=== PATIENT | female | born 1950 | race Caucasian/White ===

== ENCOUNTER 2024-02-13 05:57 | Inpatient (IN) ==
--- NOTE | 2024-01-30 14:31 | PAT Medication Instructions ---
Medication Instructions Date of Service January 30, 2024 Home Medications Medication Instructions Recorded albuterol sulfate 90 mcg/actuation 2 puffs inhalation Q4H PRN 01/02/19 aerosol inhaler shortness of breath or wheezing #18 grams triamcinolone acetonide 0.1 % 1 appln topical BID #80 grams 01/02/19 topical cream blood sugar diagnostic ([employer]Touch #100 ea 04/24/19 Ultra Blue Test Strip) blood-glucose meter ([employer] #1 ea 04/24/19 Ultra2 Meter kit) lancets 33 gauge ([employer] Delica #100 ea 04/24/19 Lancets) trazodone 50 mg tablet 50 - 100 mg (1 - 2 x 50 mg) PO HS 05/29/19 PRN sleep #60 tabs Medication List: albuterol sulfate 90 mcg/actuation aerosol inhaler 2 puffs inhalation Q4H PRN shortness of breath or wheezing triamcinolone acetonide 0.1 % topical cream 1 appln topical BID lidocaine 5 % topical ointment See Rx Instructions topical TID PRN Pain losartan 100 mg-hydrochlorothiazide 25 mg tablet 1 tab PO QPM metoprolol succinate 50 mg tablet,extended release 24 hr 75 mg PO QAM trazodone 50 mg tablet 50 - 100 mg (1 - 2 x 50 mg) PO HS PRN sleep atorvastatin 40 mg tablet 40 mg PO HS folic acid 5 mg capsule 5 mg PO QAM gabapentin 600 mg tablet 600 mg PO QID PRN Pain levothyroxine 25 mcg tablet (Levoxyl) 25 mcg PO QAM mometasone 50 mcg/actuation nasal spray 2 sprays intranasal DAILY PRN allergies omeprazole 40 mg capsule,delayed release 40 mg PO QAM tizanidine 4 mg tablet 4 mg PO TID PRN muscle spasms venlafaxine 150 mg capsule,extended release 24 hr 150 mg PO QAM MEDICATION INSTRUCTIONS: Continue as directed albuterol sulfate 90 mcg/actuation aerosol inhaler 2 puffs inhalation Q4H PRN shortness of breath or wheezing (use if needed; BRING TO HOSPITAL) triamcinolone acetonide 0.1 % topical cream 1 appln topical BID (do not apply near surgical area after bathing prior to surgery) lidocaine 5 % topical ointment See Rx Instructions topical TID PRN Pain (do not apply near surgical area after bathing prior to surgery) mometasone 50 mcg/actuation nasal spray 2 sprays intranasal DAILY PRN allergies DO NOT take the morning of surgery folic acid 5 mg capsule 5 mg PO QAM Take morning of surgery With a small sip of water, OTHERWISE NOTHING TO EAT OR DRINK AFTER MIDNIGHT: venlafaxine 150 mg capsule,extended release 24 hr 150 mg PO QAM levothyroxine 25 mcg tablet (Levoxyl) 25 mcg PO QAM metoprolol succinate 50 mg tablet,extended release 24 hr 75 mg PO QAM omeprazole 40 mg capsule,delayed release 40 mg PO QAM gabapentin 600 mg tablet 600 mg PO QID PRN Pain tizanidine 4 mg tablet 4 mg PO TID PRN muscle spasms Take evening before surgery trazodone 50 mg tablet 50 - 100 mg (1 - 2 x 50 mg) PO HS PRN sleep atorvastatin 40 mg tablet 40 mg PO HS losartan 100 mg-hydrochlorothiazide 25 mg tablet 1 tab PO QPM gabapentin 600 mg tablet 600 mg PO QID PRN Pain tizanidine 4 mg tablet 4 mg PO TID PRN muscle spasms Other Notes If you have any questions please call us at [phone] or [phone] or [phone] or [phone]
--- NOTE | 2024-02-06 10:45 | Anesthesiology Consultation ---
Date of Service February 06, 2024 Assessment & Plan (1) Encounter for pre-operative examination: Plan - check BSG am DOS. - awaiting surgeon ordered medical clearance. PAT testing to be faxed to [facility] [place] PCP Christa Elias. Chart Review Chart Review: Pending: Refer to Additional Notes / Consult section and Patient seen in Pre Admission Testing Teaching & Discussion Pre-Anesthesia Teaching/Discussion Notes: Instructed NPO after midnight before surgery, except medications with 15 cc of water. Medication instructions provided according to the PAT guidelines. History Surgery Operation Date: 02/13/24 09:35 Proposed Procedures p L4 Hardware Removal, L2-L3 Decompression, L3-L4 Revision Decompression, L2-L4 Fusion, Spinal Cord Monitoring - Demarcus Sapp, Height/Weight Height: 5 ft 5 in Weight: 88.451 kg Allergies Allergy/AdvReac Type Severity Reaction Status Date / Time alprazolam AdvReac Mild Hallucinati Verified 01/30/24 14:04 ons baclofen AdvReac Mild Nausea Verified 01/30/24 14:04 ibuprofen AdvReac Mild Nausea Verified 01/30/24 14:04 lorazepam [From Ativan] AdvReac Mild Nausea Verified 01/30/24 14:04 Medications Home Medications Medication Instructions Recorded Confirmed Last Taken albuterol sulfate 90 mcg/actuation 2 puffs inhalation Q4H PRN 01/02/19 01/30/24 Unknown aerosol inhaler shortness of breath or wheezing #18 grams triamcinolone acetonide 0.1 % 1 appln topical BID #80 grams 01/02/19 01/30/24 U nknown topical cream lidocaine 5 % topical ointment See Rx Instructions topical TID 04/23/19 01/30/24 Unknown PRN Pain blood sugar diagnostic ([employer]Touch #100 ea 04/24/19 04/24/19 Unknown Ultra Blue Test Strip) blood-glucose meter ([employer] #1 ea 04/24/19 04/24/19 Unknown Ultra2 Meter kit) lancets 33 gauge (OneTouch Delica #100 ea 04/24/19 04/24/19 Unknown Lancets) losartan 100 1 tab PO QPM 05/28/19 01/30/24 Unknown mg-hydrochlorothiazide 25 mg tablet metoprolol succinate 50 mg 75 mg PO QAM 05/28/19 01/30/24 Unknown tablet,extended release 24 hr trazodone 50 mg tablet 50 - 100 mg (1 - 2 x 50 mg) PO HS 05/29/19 01/30/24 Unknown PRN sleep #60 tabs atorvastatin 40 mg tablet 40 mg PO HS 01/30/24 01/30/24 Unknown folic acid 5 mg capsule 5 mg PO QAM 01/30/24 01/30/24 Unknown gabapentin 600 mg tablet 600 mg PO QID PRN Pain 01/30/24 01/30/24 Unknown levothyroxine 25 mcg tablet 25 mcg PO QAM 01/30/24 01/30/24 Unknown (Levoxyl) mometasone 50 mcg/actuation nasal 2 sprays intranasal DAILY PRN 01/30/24 01/30/24 Unknown spray allergies omeprazole 40 mg capsule,delayed 40 mg PO QAM 01/30/24 01/30/24 Unknown release tizanidine 4 mg tablet 4 mg PO TID PRN muscle spasms 01/30/24 01/30/24 Unknown venlafaxine 150 mg 150 mg PO QAM 01/30/24 01/30/24 Unknown capsule,extended release 24 hr Past Medical History Medical History (Updated 02/06/24 @ 14:31 by Nimisha Boston PA-C) Asthma Barretts esophagus Benign essential hypertension COPD (chronic obstructive pulmonary disease) Patient states she was told by pulmonary that she had asthma (not COPD) Per remote [facility] [place] pulmonary records in 2018, possible patient may only have asthma based on spirometry findings, COPD diagnosis still listed in [facility] [place] records since Diabetes mellitus Diet controlled 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 per [facility] [place] Heme/onc GERD (gastroesophageal reflux disease) Hiatal hernia Hx of colonic polyps Hx of irritable bowel syndrome Hyperlipidemia Hypothyroidism Lumbar disc disease Pulmonary embolism (~07/2023) Sleep apnea No device Patient denies h/o stroke, seizures, heart attack, heart failure, blood clots/DVTs or blood transfusions. 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 Hx of hernia repair abdominal Hx of hysterectomy Hx of lumbosacral spine surgery x3 L4-L5 Hx of tonsillectomy (1962) x2 Past Anesthesia History No Hx of Anesthesia Complications and No Family Hx of Anesthesia Complications History of PONV History of PONV (denies needing scop patch) and Hx of Motion Sickness Social History Smoking Status: Former smoker tobacco type: cigarettes Smoking cigarettes per day: 30 Do You Dip or Chew Tobacco: No Smoking End Date: quit 1994 (1.5 ppd) Hx Alcohol Use: Yes alcohol intake frequency: a few times a month Hx Substance Use: No substance use type: does not use Review of Systems Patient denies chest pain, shortness of breath, dyspnea on exertion, fever, chills, cough, wheezing, or palpitations. Physical Exam Vital Signs Vitals BP 172/89 P 63 SP02 97% on RA RESP 18 Physical Patient resting comfortably in chair in no acute distress, alert and oriented, r esponding appropriately throughout visit Full cervical extension range of motion without pain TMD 3.5 finger breadths Mallampati Score 2 Dentition: intact, denies chipped or loose teeth, caps/crowns, implants or bridges Lungs: normal respiratory effort. Good air movement, clear throughout to auscultation, no adventitious breath sounds Cardiac: regular rate and rhythm, no murmurs noted Carotid arteries: negative bruit bilat Lab Results Anesthesia Preop Results Results Anesthesia Widget: WBC 3.70 K/ul (4.8-10.8) L 02/06/24 Hgb 11.4 g/dl (12.0-16.0) L 02/06/24 Hct 35.8 % (37.0-47.0) L 02/06/24 Plt 163 K/uL (130-400) 02/06/24 Na 140 mmol/L (136-145) 02/06/24 K 4.6 mmol/L (3.5-5.1) 02/06/24 Cl 105 mmol/L (98-107) 02/06/24 CO2 31 mmol/L (21-32) 02/06/24 BUN 11 mg/dl (6-23) 02/06/24 Creat 0.91 mg/dl (0.6-1.2) 02/06/24 Glucose Level 99 mg/dl (70-99(Fasting)) 02/06/24 PT 10.3 Seconds (9.0-12.0) 02/06/24 PTT 23 Seconds (21-31) 02/06/24 INR 0.9 (0.9-1.1) 02/06/24 HA1c 6.1 % (4.5-5.6) H 02/06/24 Urine Color Yellow 02/06/24 Urine Appearance Clear (Clear) 02/06/24 Urine pH 7.0 (4.5-7.5) 02/06/24 Urine Specific [place] 1.007 (1.000-1.030) 02/06/24 Urine Protein Negative (Negative) 02/06/24 Urine Glucose (UA) Negative (Negative) 02/06/24 Urine Ketones Negative (Negative) 02/06/24 Urine Blood Negative (Negative) 02/06/24 Urine Nitrite Negative (Negative) 02/06/24 Urine Bilirubin Negative (Negative) 02/06/24 Urine Urobilinogen Negative (Negative) 02/06/24 Urine Leukocyte Esterase Trace (Negative) H 02/06/24 Urine WBC (Auto) 0-5 /hpf (0-5) 02/06/24 Urine RBC (Auto) 0-2 /hpf (0-2) 02/06/24 Urine Hyaline Casts (Auto) 0-2 /lpf (0-2) 02/06/24 Urine Epithelial Cells (Auto) 0-2 /hpf (0-2) 02/06/24 Urine Bacteria (Auto) None Seen (None Seen) 02/06/24 Blood Type A Positive 02/06/24 Antibody Screen NEGATIVE 02/06/24 Testing Electrocardiogram Date: 08/09/23 NSR, rate 74 bpm High QRS voltage may be normal variant or due to lve Nonspecific T wave abnormality Echocardiogram Date: 09/29/23 EF 69% Mild cLVH Non-dilated cardiac chambers Mild aortic valve sclerosis without aortic stenosis Mild mitral annular calcification, mild mitral regurgitation Mild pulmonary regurgitation Cervical Spine Date: 09/14/23 x-ray No acute findings. No dynamic instability. Mild spondylotic disease. CT 09/03/23 No acute findings. Other Testing CT PE 11/21/23 No PE. Previously reported small left lower lobe pulmonary embolism has resolved. There are chronic findings as above. CT chest, abdomen and pelvis 09/03/23 No acute findings. Hiatal hernia noted.
--- OUTSIDE RECORDS SUMMARY | 2024-02-13 06:03 | External Medical Summary | Summary of Care ---
Author Name Unknown Organization [facility] Address [address] [facility] [place] [address] Phone [phone] Care Team Providers [facility] Control [facility] Name Role Phone Unavailable Primary Care Provider Unavailabl e Encounter Details Date Type Department Care Team (Late st Contact Info) Description 02/06/2024 Population Health External Data Unspecified Department Allergies Active Allergy Reactions Criticality Noted Date Comments Alprazolam 10/22/2001 Irritable/mean Lorazepam Other (Please comment) 06/10/2013 Confused and "out of it for days" Baclofen Psych complications 11/16/2012 Ibuprofen 10/22/2001 GI intolerence Metformin 10/18/2021 Stomach documented as of this encounter (statuses as of 02/09/2024) Medications Medication Sig Dispensed Refills Start Date End Date Status Proventil HFA 108 (90 Base) MCG/ACT Inhalation Aerosol SolutionIndications: Acute non-recurrent frontal sinusitis Inhale by mouth 2 Puffs every 4 hours as needed for Wheezing. 6.7 g 05/20/2022 Active Losartan Potassium 100 MG Oral Tablet (Cozaar)Indications: HTN, goal below 150/90 TAKE ONE TABLET BY MOUTH EVERY DAY 90 Tablet 2 07/03/2023 Active Metoprolol Succinate ER 50 MG Oral Tablet Extended Release 24 Hour (toPROL XL)Indications:HTN, goal below 150/90 TAKE ONE TABLET BY MOUTH EVERY DAY 90 Tablet 2 07/03/2023 Active Atorvastatin Calcium 40 MG Oral Tablet (Lipitor) TAKE 1 TABLET BY MOUTH DAILY 90 Tablet 2 07/03/2023 Active traZODone HCl 50 MG Oral Tablet (Desyrel)Indications :Generalized anxiety disorder TAKE 1 TO 2 TABLETS BY MOUTH AT BEDTIME NEEDED FOR SLEEP 180 Tablet 1 07/03/2023 Active Meclizine HCl 25 MG Oral Tablet (Antivert)Indication s:Dizziness on standing Take 1 Tablet by mouth 3 times a day as needed for Dizziness. 30 Tablet 07/21/2023 Active Albuterol Sulfate HFA 108 (90 Base) MCG/ACT Inhalation Aerosol Solution Inhale 2 Puffs by mouth in the morning and 2 Puffs at noon and 2 Puffs in the evening and 2 Puffs before bedtime. 18 g 5 07/24/2023 Active Fluticasone-Salmeter ol 250-50 MCG/ACT Inhalation Aerosol Powder Breath Activated (Advair Diskus) Inhale 1 Puff by mouth in the morning and 1 Puff before bedtime. 60 Each 3 07/24/2023 Active Levothyroxine Sodium 25 MCG Oral Tablet (Levoxyl)Indications :Acquired hypothyroidism Take 1 Tablet by mouth in the morning. (at least 30 min prior to breakfast or other meds). 30 Tablet 11 08/14/2023 Active Gabapentin 400 MG Oral Capsule (Neurontin) TAKE ONE CAPSULE BY MOUTH THREE TIMES A DAY 90 Capsule 5 08/18/2023 Active Apixaban 5 MG Oral Tablet (Eliquis)Indications :Acute pulmonary embolism, unspecified pulmonary embolism type, unspecified whether acute cor pulmonale present (HCC) Take 1 Tablet by mouth in the morning and 1 Tablet before bedtime. Do not start before September 14, 2023. 180 Tablet 1 09/14/2023 Active Additional Information Patient not taking.Reported on 01/19/2024 Folic Acid 1 MG Oral TabletIndications:Ho mocystinemia Take 1 Tablet by mouth in the morning. 90 Tablet 3 09/25/2023 Active tiZANidine HCl 4 MG Oral Tablet (Zanaflex)Indication s:Chronic bilateral low back pain, unspecified whether sciatica present Take 1 Tablet by mouth every 6 hours as needed for Muscle spasms. 30 Tablet 12/15/2023 Active Omeprazole 40 MG Oral Capsule Delayed Release (PriLOSEC)Indication s:GERD without esophagitis TAKE ONE CAPSULE BY MOUTH TWICE A DAY 180 Capsule 3 01/17/2024 5 Active Venlafaxine HCl ER 150 MG Oral Capsule Extended Release 24 Hour (Effexor XR)Indications:Gener alized anxiety disorder TAKE 1 CAPSULE BY MOUTH EVERY MORNING . 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 Moderate episode of recurrent major depressive d isorder 12/22/2022 Dizziness on standing 05/28/2022 Ambulatory dysfunction 05/28/2022 Hypokalemia 05/28/2022 Type II diabetes mellitus with neurological ryan festations 10/18/2021 Claustrophobia 06/24/2021 Recurrent major depressive disorder 04/19/2021 Type 2 diabetes mellitus with polyneuropathy 06/2020 Chronic major depressive disorder 09/26/2019 Type 2 diabetes mellitus wit h hemoglobin A1c goal of less than 7.0% 09/18/2019 GERD without esophagitis 07/26/2019 Generalized anxiety disorder 07/26/2019 Other irritable bowel syndrome 03/29/2018 Other insomnia 12/20/2017 BHAVIN (obstructive sleep apnea) 11/16/2012 Vitamin D deficiency 08/20/2011 Obesity, Class II, BMI 35-39.9, no comorbidity 0 10/12/2009 Overview: Per Obesity Taxonomy Dyslipidemia, goal LDL below 100 06/25/2009 Overview: Per Lipid Taxonomy. Niacin Simvastatn Did not tolerated fish oil 04/26 change to pravastatin. History of tobacco use 10/31/2007 Overview: Ua 07/28 HTN, goal below 150/90 Overview: Atenolol chlothalidone, lasix. Basic 03/25, UA 10/24 Atenolol stopped du to cough, fatigue. Lotrel, chlorthalidone, K. 06/26 self d/c chlorthalidone due to cost.Tolerating being off documented as of this encounter (statuses as of 02/09/2024) Resolved Problems Problem Noted Date Diagnosed Date Resolved Date Upper respiratory tract infection 03/27/2023 08/09/2023 Mixed hyperlipidemia 10/18/2021 023 COPD exacerbation 06/29/2020 08/09/2023 Overview: Per COPD GOLD Classification Hypertensive kidney disease with stage 3a chronic kidney disease 05/25/2020 04/19/2021 Overview: Per CKD protocol Hypertensive kidney disease with stage 3 chronic kidney disease 11/18/2019 05/28/2020 Overview: Per CKD protocol Kay's esophagus without dysplasia 09/26/2019 10/18/2021 Emphysema, unspecified 09/26/201901/08 Type 2 diabetes mellitus wit h chronic kidney disease 09/26/2019 02/19/2020 Overview: duplicate Kidney disease, chronic, sta ge III (GFR 30-59 ml/min) 08/27/2019 11/28/2019 Overview: Per CKD protocol Chest pain 08/24/2018 07/25/2019 Overview: Acute Hypertensive urgency 08/24/2018 020 Overview: Acute Headache 08/24/2018 07/25/2019 Overview: Acute Costochondritis 08/24/2018 03/10/2020 Encounter for examination fo r normal comparison and control in clinical research program 07/24/2018 08/23/2019 Overview: DO NOT DELETE [facility] DETECT Study: Project # [id number], Videographer: Saad Bray, PhD. SUMMARY: Goal: Establish test characteristics (sensitivity, specificity, PPV, NPV) of a circulating tumor DNA (ctDNA)-based test for cancer. Hypothesis: Circulating tumor DNA (ctDNA) and elevated protein biomarkers (together, the marker panel) can be detected in asymptomatic individuals with early cancer. Specific Aim 1: Determine the prevalence of a positive marker panel test in a prospective clinical cohort of 10,000 asymptomatic women ages 65 to 75 years. Specific Aim 2: Determine the sensitivity, specificity, positive predictive value (PPV) and negative predictive value (NPV) of a marker panel test to identify histologically proven cancers that develop within 5-years of the marker panel evaluation. CONTACTS: During normal business hours, contact study staff at ; after hours Videographer via the [employer] coin rolling machine operator . Please contact study team before resolving/deleting from patients problem list. Study phone number: [phone]. Diagnosis changed due to Research Module. Go to Snapshot for study details. Encounter for examination fo r normal comparison and control in clinical research program 07/24/2018 03/17/2022 Overview: DO NOT DELETE - [facility] Study: Project # [id number], Videographer: Mandeep Mcpherson, MS, MPH. SUMMARY: Goal: Establish test characteristics (sensitivity, specificity, PPV, NPV) of a circulating tumor DNA (ctDNA)-based test for cancer. - Hypothesis: Circulating tumor DNA (ctDNA) and elevated protein biomarkers (together, the marker panel) can be detected in asymptomatic individuals with early cancer. - Specific Aim 1: Determine the prevalence of a positive marker panel test in a prospective clinical cohort of 10,000 asymptomatic women ages 65 to 75 years. - Specific Aim 2: Determine the sensitivity, specificity, positive predictive value (PPV) and negative predictive value (NPV) of a marker panel test to identify histologically proven cancers that develop within 5-years of the marker panel evaluation. - CONTACTS: During normal business hours, contact study staff at ; after hours Videographer via the [employer] coin rolling machine operator . - Please contact study team before resolving/deleting from patients problem list. Study phone number: [phone]. Diagnosis changed due to Research Module. Go to Snapshot for study details. Left upper quadrant pain 03/29/201804/2018 IFG (impaired fasting glucose) 02/09/2018 09/18/2019 Gastroesophageal reflux disease 12/20/2017 07/31/2019 Encounter for long-term (cur rent) use of medications 12/20/2017 03/10/2020 Shoulder impingement 06/27/2016 017 Benign skin lesion of nose 05/30/2016 0 01/11/2017 Deviated nasal septum 05/30/20162016 Chronic rhinitis 05/30/2016 09/26/2016 Incompetent nasal valve 05/30/201612/16 Acute respiratory failure wi th hypoxia and hypercapnia 05/09/2016 05/16/2016 PNA (pneumonia) 05/09/2016 06/27/2016 Narcotic overdose 05/09/2016 05/16/2016 Left lower lobe pneumonia 05/09/2016 Left upper lobe pneumonia 05/09/2016 COPD (chronic obstructive pulmonary disease) 6 05/16/2016 Bursitis 03/18/2015 01/11/2017 Intractable back pain 03/11/20152019 Overview: Acute COPD, severe 02/11/2015 07/02/2020 Overview: Per COPD GOLD Classification Do not give narcotics 08/13/20142017 Overview: Narcotics only to be given by Myself as PCP Asthma with COPD 07/04/2014 09/26/2019 Advance directive discussed with patient 11/06/2013 12/20/2017 Overview: No, Advance Directive brochure given to patient at prior appointment. Urinary frequency 11/06/2013 2014 Vaginal atrophy 11/06/2013 01/11/2017 Cystocele, lateral 11/06/2013 7 Do not give narcotics 09/23/20132013 Abnormal thyroid function test 08/20/2011 2014 Overview: 01/25 ab neg Vitamin D deficiency 08/20/2011 012 SPINAL STENOSIS-LUMBAR 05/10/201105/16 Anemia of other chronic disease 11/11/2009 06/27/2016 Overview: 10/25 iron, b12, folate, epg, upg neg Degeneration of lumbosacral intervertebral disc 06/25/2009 12/20/2017 Thoracic and lumbosacral neuritis 06/25/2009 02/09/2017 Respiratory symptoms 06/19/2009 017 Overview: PFT 06/24 mild obstrucion,sign improved with bronchodilator. ICD-10 update of inactive term Special screening for osteoporosis 06/16/2009 11/05/2013 Overview: Dxa 05/25 reasurring. Rpeat 5 yr Coronary artery disease (CAD) excluded 06/01/2009 2014 Overview: Hx ASCVD on chart. No cath. NO abn stress test. Intermittent chest tightness, not exertional. Stess test 08/25 Breast attenuation and borderline transient ischemic dilation Cath 06/24 normal coronaries Generalized anxiety disorder 06/01/2009 01/11/2017 Overview: Citalopram changed to sertraline Benign neoplasm of colon 04/24/2009 Overview: villous adenoma and adenoma/repeat colonoscopy in 6 months--adenoma. Repeat 1 yr done 12/25. Clear. Repeat 3 yr ACTIVE CASE MANAGEMENT 11/19/200811/13 Overview: Makayla Alfaro RN Lichenification 01/16/2008 01/11/2017 Overview: lichen sclerosus ACTIVE CASE MANAGEMENT 08/23/200712/19 Overview: Makayla Alfaro RN MEDICATION USE AGREEMENT 05/18/2007 Overview: Robaxin, vicodin tid, neurontin for back pain. Released by Dr Hutton after spinal stimulator placed 12/23 04/26 spinal stimulator removed as ineffective. Change muscle relaxer to flexeril. Increased to percocet short term post surgery. Plan to return to vicodin as tolerated. 04/[address] HUTTON 02/11/2015: MARTHA without oxycodone, see 02/11/15 refill encounter 04/13/2015: advised patient will need to see medical pain management clinic due to persistent/worsening pain despite multiple agents Kay's esophagus 03/07/2007 12/21/19 18 Overview: 05/03/06-EGD--Small hiatal hernia. Per Andre due in 04/24 Mucosa suggestive of short segment Kay's Esophagus (biopsy)-mild to moderate chronic inflammation at the junction No evidence of metaplasia EGD 09/17 - robert's esophagus PPI EGD 04/24, arretts neg dysplasia. Repeat 3 yr EGD 10/28 no Kay's, rpt 5 years Migraine 03/07/2007 01/11/2017 Overview: Suspect element due to neck disease. Midrin prn. Much better after rhizotomy Impaired fasting glucose 04/12/2006 Overview: 02/20 swing grinder DISC DIS NEC-C spine 10/11/2005 017 Overview: MRI 10-08-2005 LH: mild mutilevel DDD C3-4,C5-6,T1-2,mild canal stenoisis at C3- 4. Rhizotomy 11/20, then CYRUS helped alot. Periodic mild discomfort, radicular pain with more activity 04/27 symptoms starting to return. Follows with DR Hutton Allergic rhinitis 10/03/2005 09/26/2016 Overview: benadryl, nasonex OSTEOARTHROSIS knees and hip rt 08/22/2005 01/11/2017 Overview: mobic Meralgia paresthetica 08/22/20052016 Overview: intermittent Screening for malignant neoplasm of breast 04/04/2005 05/17/2007 Overview: Mammogram neg.,05/10/2005 neg for ca. Menopause 04/04/2005 01/11/2017 Overview: MONICA for benign reasons, still has ovaries. NO hx abnormal pap. PAP vaginal cuff neg .,neg 10/23 Estrace OBESITY, UNSPECIFIED 02/21/2005 010 Overview: Per Obesity Taxonomy ADVANCE DIRECTIVE INFORMATION 12/22/2004 11/05/2013 Overview: No, Advance Directive brochure given to patient. Mixed dyslipidemia 08/05/2004 9 Overview: Per Lipid Taxonomy. Niacin Simvastatn Did not tolerated fish oil SPINAL STENOSIS-LUMBAR 02/09 Overview: MRI LS spine 11/30/2005: Left paracentric disc prptrusion with scar at L5S1 and mild broad based prot at L4-5 level.FU with . CYRUS 08/23, helped for short amout of time. 02/20 constant low rigth sided back pain, with occasiona. Radicular pain down right or left leg. NO loss of bowel or bladder control. Trilasate, robaxin and 4 darvocet a day. Pamelor at bedtime 05/23Grover: post laminectomy syndrome, R/O rigth L4/5, L5S1 facet dysfunction with medial nerve blocks. Left L5S1 herniation with decreasing response to CYRUS MRI 01/21disc bulges compressing L5, S1 nerve roots Repeat CYRUS not helpful 05/25 not pleased with the spinal cord stimulator. Placed 12/23. Not pleased with Dr Hutton's assistance with it either. States helps the leg pain some, but not 100% as Dr Hutton states. Does not help the back pain at all. Still needing vicodin, robaxin, neurontin. States has tried to self wean and not tolerate. 04/26 stimulator removed. 11/25 MRI recurrent mild-mod left subarticular and left foraminal protrusion progressed since 2007 GENERAL OSTEOARTHROSIS 03/07 Reflux esophagitis 7 Overview: 05/03/06-EGD--Small hiatal hernia Mucosa suggestive of short segment Kay's Esophagus (biopsy)-mild to moderate chronic inflammation at the junction No evidence of metaplasia EGD 04/24 - robert's esophagus no dysplasia PPI documented as of this encounter (statuses as of 02/09/2024) Immunizations Name Administration Dates Next Due COVID-19 mRNA, LNP-s, No Pre serve, 2-Dose Series (Pfizer) 08/04/2021,11/20/2020,10/28/2020 Pneumococcal Conjugate Vacc, 13 Valent (Prevnar) 12/20/2017 Pneumococcal Polysaccharide PPV23 (Pneumovax) 07/31/2019 Season Influenza, Quad, PF, Adjuvanted, 65+ Yrs, IM (FLUAD) 06/25/2020 Seasonal Influenza, PF, 6 M & above, IM , (FluLaval or Fluzone) 05/16/2017 Seasonal Influenza, Quadriva lent Hd (Fluzone Hd) 09/22/2023,05/28/2022,04/19/2021 Seasonal Influenza, Quadriva lent, No Preserve, IM 04/16/2019,05/16/2016 Seasonal Influenza, Split, I IV3, With Preserve, Inj 03/26/2015,03/26/2014,03/27/2013,05/08,05/04/2011,05/24/2010,07/27/2009 ,07/04/2008,05/18/2007 TDAP (age 10 and older)(Boostrix) 12/20/2017 TDAP, Age 7 and older, IM (Adacel) 10/31/2007 Zoster Vaccine Recombinant (Shingrix) 03/15/2022 ,01/04/2022 documented as of this encounter Social History Tobacco Use Types Packs/Day Years Used Date Smoking Tobacco: Former Cigarettes 1.5 20 0 07/17/1974 - 07/17/1994 Smokeless Tobacco: Never Alcohol Use Standard Drinks/Week Comments Not Currently 0 (1 standard drink = 0.6 oz pur e alcohol) Occ PHQ-2 Answer Date Recorded PHQ Adult Total Score 0 02/23/2023 Hunger Vital Sign Answer Date Recorded Within the past 12 months, y ou worried that your food would run out before you got the money to buy more. Never true 02/24/20 23 Within the past 12 months, t he food you bought just didn't last and you didn't have money to get more. Never true 02/23/2023 Sex and Gender Information Value Date Recorded Sex Assigned at Female 04/19/2021 7:08 AM EDT Gender Identity Female 04/19/2021 7:08 AM EDT Sexual Orientation Straight 04/19/2021 7: 08 AM EDT Job Start Date Occupation Industry Not on file Not on file Not on file documented as of this encounter Functional Status Functional Status Response Date of Assess ment Are you deaf or do you have serious difficulty h earing? No 09/28/2018 Are you blind or do you have serious difficulty seeing, even when wearing glasses? No 09/28/2018 Do you have serious difficul ty walking or climbing stairs? (5 years old or older) No 09/28/2018 Do you have difficulty dress ing or bathing? (5 years old or older) No 09/28/2018 Because of a physical, menta l, or emotional condition, do you have difficulty doing errands alone such as visiting a doctor s office or shopping? (15 years old or older) No 09/29/19 19 Cognitive Status Response Date of Assessm ent Because of a physical, menta l, or emotional condition, do you have serious difficulty concentrating, remembering, or making decisions? (5 years old or older) No 09/28/2018 documented as of this encounter Plan of Treatment Upcoming Encounters Date Type Department Care Team (Late st Contact Info) Description 04/10/2024 10:00 AM EDT [address] [address] Jonny Guzman PA-C [address] [place] [address], [place] [address] 06/18/2024 6:00 PM EST Office Visit Family Practice, [place] [address] [phone] Reina Cross CRNP [address] [place] [address] 08/16/2024 1:50 PM EST Nurse Only Ancillary 1st Floor, [place] [address] [id number] [place], [facility] 2 [address] [place] [address] 08/21/2024 2:45 PM EST Office Visit Ophthalmology, [place] [address] [place] [id number] Juan Childers MD [address] [facility] [place] [address] 08/26/2024 11:30 AM EST Hospital Encounter [facility], Endoscopy [address] [place] [phone] Willam Cardona MD [address] [facility] [place] [address] 08/26/2024 11:30 AM EST - 08/26/2024 12:00 PM EST Surgery [facility]O [facility], Endoscopy [address] [place] [phone] Willam Cardona MD [address] [place] [address] COLONOSCOPY FLEXIBLE PROXIMAL DIAGNOSTIC Scheduled Procedures Name Priority Associated Diagnoses Date/Ti me COLONOSCOPY FLEXIBLE PROXIMAL DIAGNOSTIC Recall History of colon polyps 08/26/2024 11:30 AM EST Health Maintenance Due Date Last Done Comments Cologuard 1997 Sigmoidoscopy 1997 Fecal Occult Blood Test 08/25/2004 08/25/2003 Colonoscopy 03/08/2021 03/08/2018, 02/15, 10/30/2013, Additional history exists Colorectal Cancer Screening 03/08/2021 COVID-19 Vaccine ( season) 2023 08/04/2021, 11/20/2020, 10/28/2020 Kay's Esophagus Surveilance 09/22/2023 09/21/2020, 09/21/2020, 03/08/2018, Additional history exists Diabetic Eye Exam 12/30/2023 12/29/2022, , 10/18/2021, Additional history exists HbA1c 02/08/2024 08/10/2023, 06/0 02/2023, 10/18/2021, Additional history exists Depression Monitoring 02/24/2024 02/23/2023 Influenza Vaccine (FLU shot) (#1) 2024 09/22/2023, 05/28/2022, 04/19/2021, Additional history exists DXA Scan 08/08/2024 08/08/2019, 2 , 06/16/2009 Mammogram 08/14/2024 08/14/2023, 04/0 08/2020, 01/12/2018, Additional history exists TSH 09/21/2024 09/22/2023, 07/18, 08/10/2023, Additional history exists Albumin/Creatinine Ratio 12/14/2024 024, 12/22/2022, 10/18/2021 Diabetic Foot Exam 12/14/2024 12/15/2023, 0 12/22/2022, 06/24/2021, Additional history exists GFR 12/14/2024 12/15/2023, 05/0 12/2023, 11/03/2023, Additional history exists DTaP,Tdap,and Td Vaccines (3 - Td or Tdap) 12/21/2027 12/20/2017, 10/31/2007 Lipid Panel 12/23/2027 12/22/2022, 04/0 10/2021, 07/20/2021, Additional history exists Pneumococcal Vaccine: 65+ Years Completed 07/31/2019, 12/20/2017, 04/04/2005 Zoster Vaccines Completed 03/15/2022, 01/04/2022 *BASELINE EKG FOR HTN Completed 08/09/2023 , 05/27/2022, 04/08/2022, Additional history exists HPV (Gardasil) Vaccine Aged Out No lo nger eligible based on patient's age to complete this topic Hepatitis B Vaccine Aged Out No longe r eligible based on patient's age to complete this topic MENINGOCOCCAL (MENACTRA/MENVEO) Aged Out No longer eligible based on patient's age to complete this topic documented as of this encounter Medical Devices Implanted Type Area Fiberglass Grinder Device Identifier Shelf Expiration Date Model / Serial / Lot Cable Accessory 3550-31 - [id number] Implanted:Qty : 1 on 09/04/2009 at OR [facility] N/A: Spine Thoracic [employer] : NEUROLOGIC PAIN 06/22/2013 [id number] / / [id number] Description:Titan anchor acc essory kit 3550-39 Lead Kit [id number] - [id number] Implanted:Qty : 1 on 09/04/2009 at OR [facility] N/A: Spine Thoracic [employer] : NEUROLOGIC PAIN 04/30/2013 [id number] / / [id number] Description:medtronic specif y 5-6-5 lead kit for spinal cord stimulation. Lens 19.5 [id number] - [id number] Implanted:Qty : 1 on 12/25/2015 by Juan Childers MD at OR [facility] Left: Eye JOSEPH : SURGICAL 01/13/2017 [id number] / / [id number] Sm Vent Hernia [id number] - [id number] Implanted:Qty : 1 on 04/14/2016 by Linda Peña DO at OR [facility] N/A: Abdomen CR BARD : DAVOL 11/11/2018 [id number] / / [id number] Lens 20.0 [id number] - [id number] - [id number] Implanted:Qty : 1 on 06/29/2018 by Juan Childers MD at OR [facility] Right: Eye JOSEPH : SURGICAL 12/14/2021 [id number] / [id number] / documented as of this encounter Advance Directives * No Code (Latest Code Status on File) Date Activated Date Inactivated Comments 05/27/2022 11:06 PM 05/28/2022 5:22 PM This orde r reflects the patients wishes and were consensually agreed upon. Question Answer Comments Discussion of Advance Directives occurred with: Patient * Full Code Date Activated Date Inactivated Comments 09/28/2018 5:56 PM 09/30/2018 6:28 PM This order r eflects the patients wishes and were consensually agreed upon. Question Answer Comments Discussion of Advance Directives occurred with: Not Discussed Does the patient have a Living Will? No Does the patient have Health Care Power of Attor chacha? No * Full Code Date Activated Date Inactivated Comments 08/24/2018 1:15 AM 08/24/2018 10:40 PM This order re flects the patients wishes and were consensually agreed upon. Question Answer Comments Discussion of Advance Directives occurred with: Patient Does the patient have a Living Will? No Does the patient have Health Care Power of Attor chacha? No * Full Code Date Activated Date Inactivated Comments 06/29/2018 6:38 AM 06/29/2018 2:58 PM This order reflects the patients wishes and were consensually agreed upon. * Full Code Date Activated Date Inactivated Comments 06/22/2018 8:23 PM 06/24/2018 4:17 PM This order r eflects the patients wishes and were consensually agreed upon. Question Answer Comments Discussion of Advance Directives occurred with: Not Discussed
--- OUTSIDE RECORDS SUMMARY | 2024-02-13 06:03 | External Medical Summary | Summary of Care ---
Author Name Unknown Organization [facility] Address [address] [facility] [place] [address] Phone [phone] Care Team Providers Care Fitter Up Name Role Phone Unavailable Primary Care Provider Unavailabl e Encounter Details Date Type Department Care Team (Late st Contact Info) Description 02/10/2024 Orders Only PATIENT PORTAL DO NOT DELETE THIS DEPT USED BY [place] [id number] Allergies Active Allergy Reactions Criticality Noted Date Comments Alprazolam 10/22/2001 Irritable/mean Lorazepam Other (Please comment) 06/10/2013 Confused and "out of it for days" Baclofen Psych complications 11/16/2012 Ibuprofen 10/22/2001 GI intolerence Metformin 10/18/2021 Stomach documented as of this encounter (statuses as of 02/10/2024) Medications Medication Sig Dispensed Refills Start Date [...] MOUTH DAILY 500 Tablet 3 01/23/2024 Active hydroCHLOROthiazide 12.5 MG Oral CapsuleIndications:E ssential hypertension with goal blood pressure less than 130/80 Take 1 Capsule by mouth in the morning. 90 Capsule 3 02/07/2024 Active documented as of this encounter (statuses as of 02/10/2024) Active Problems Problem Noted Date Diagnosed Date [...] as of this encounter (statuses as of 02/10/2024) Resolved Problems Problem Noted Date Diagnosed Date [...] program 07/24/2018 08/23/2019 Overview: DO NOT DELETE [facility] Study: Project # [id number], Map And Chart Mounter: Saad Bray, PhD. SUMMARY: Goal: Establish test [...] contact study staff at ; after hours Map And Chart Mounter via the [facility] apple peeler operator . Please contact study team before resolving/deleting from patients problem list. Study phone number: [phone]. Diagnosis changed due to Research Module. Go to Snapshot for study details. Encounter for examination fo r normal comparison and control in clinical research program 07/24/2018 03/17/2022 Overview: DO NOT DELETE - [facility] Study: Project # [id number], Map And Chart Mounter: Mandeep Mcpherson, MS, MPH. SUMMARY: Goal: Establish [...] contact study staff at ; after hours Map And Chart Mounter via the [facility] apple peeler operator . - Please contact study team before resolving/deleting from patients problem list. Study phone number: [phone]. Diagnosis changed due to Research Module. Go [...] by Dr Hutton after spinal stimulator placed 06/09 10/11 spinal stimulator removed as ineffective. 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 DISC DIS NEC-C spine 10/11/2005 017 Overview: [...] as of this encounter (statuses as of 02/10/2024) Immunizations Name Administration Dates Next Due COVID-19 mRNA, LNP-s, No Pre serve, 2-Dose Series ([employer]) 08/04/2021,11/20/2020,10/28/2020 Pneumococcal Conjugate Vacc, 13 Valent (Prevnar) [...] 04/10/2024 10:00 AM EDT Office [place]ology, [address] [place] [address] Jonny Guzman PA-C [facility], [place] [address] 06/18/2024 6:00 PM EST Office Visit Family Practice, [place] [phone] Reina Cross CRNP [address] [place] [address] 08/16/2024 1:50 PM EST Nurse Only Ancillary 1st Floor, [place] [address] [place] [address] [place], [facility] Wellness 2 [address] [place] [address] 08/21/2024 2:45 PM EST Office Visit Ophthalmology, [place] [address] [place] [address] Juan Childers MD [address] [place] [address] 08/26/2024 11:30 AM EST Hospital Encounter ENDO [facility], [address] [phone] Willam Cardona MD [address] [place] [address] 08/26/2024 11:30 AM EST - 08/26/2024 12:00 PM EST Surgery ENDO [facility], [address]oscopy [address] [phone] Willam Cardona MD [address] [place] [address] COLONOSCOPY FLEXIBLE PROXIMAL DIAGNOSTIC Scheduled Procedures Name [...] 01/12/2018, Additional history exists TSH 09/21/2024 09/22/2023, 2 11/2023, 08/10/2023, Additional history exists Albumin/Creatinine Ratio 12/14/2024 [...] 03/15/2022, 01/04/2022 *BASELINE EKG FOR HTN Completed 02/07/2024 , 08/09/2023, 05/27/2022, Additional history exists HPV (Gardasil) Vaccine Aged Out No lo nger eligible based on patient's age to complete this topic Hepatitis B Vaccine Aged Out No longe r eligible based on patient's age to complete this topic MENINGOCOCCAL (MENACTRA/MENVEO) Aged Out No longer eligible based on patient's age to complete this topic documented as of this encounter Medical Devices Implanted Type Area Restaurant Shift Supervisor Device Identifier Shelf Expiration Date Model / Serial / Lot Cable Accessory 3550-31 - [id number] Implanted:Qty : 1 on 09/04/2009 [place] [facility] [place]A: Spine Thoracic [employer] : NEUROLOGIC PAIN 06/22/2013 [id number] / / [id number] Description:Titan anchor acc essory kit 3550-39 Lead Kit [id number] - [id number] Implanted:Qty : 1 on 09/04/2009 at [place] [facility] [place]/A: Spine Thoracic [employer] : NEUROLOGIC PAIN 04/30/2013 [id number] / / [id number] Description:medtronic specif y 5-6-5 lead kit for spinal cord stimulation. Lens 19.5 [id number] - [id number] Implanted:Qty : 1 on 12/25/2015 by Juan Childers MD at OR [facility] Left: Eye JOSEPH : SURGICAL 01/13/2017 [id number] / / Patch Sm Vent Hernia [id number] - [id number] Implanted:Qty : 1 on 04/14/2016 by Linda Peña DO at OR [facility] N/A: Abdomen CR BARD : DAVOL 11/11/2018 [id number] / / [id number] Lens 20.0 [id number] - [id number] - [id number] Implanted:Qty : 1 on 06/29/2018 by Juan Childers MD at OR [facility] Right: Eye JOSEPH : SURGICAL 12/14/2021 [id number] / [id number] / documented as of this encounter Advance [...]
--- OUTSIDE RECORDS SUMMARY | 2024-02-13 06:03 | External Medical Summary | Summary of Care ---
Author Name Unknown Organization [facility] Address [address] [place] [address] Phone [phone] Care Team Providers Care Promotions Firm Accounts Manager Name Role Phone Unavailable Primary Care Provider Unavailabl e Reason for Visit * Reason Onset Date Comments Appointment 02/07/2024 Colonoscopy Encounter Details Date Type Department Care Team (Late st Contact Info) Description 02/07/2024 Telephone Gastroenterology, [facility] [address] [place] [address] [place] [address] Specified, Zz No Resource [address] [place] [address] Appointment (Colonoscopy ) Allergies Active Allergy Reactions Criticality Noted Date Comments Alprazolam 10/22/2001 Irritable/mean Lorazepam Other (Please comment) 06/10/2013 Confused and "out of it for days" Baclofen Psych complications 11/16/2012 Ibuprofen 10/22/2001 GI intolerence Metformin 10/18/2021 Stomach documented as of this encounter (statuses as of 02/08/2024) Medications Medication Sig Dispensed Refills Start Date [...] as of this encounter (statuses as of 02/08/2024) Active Problems Problem Noted Date Diagnosed Date [...] as of this encounter (statuses as of 02/08/2024) Resolved Problems Problem Noted Date Diagnosed Date [...] program 07/24/2018 08/23/2019 Overview: DO NOT DELETE [facility] [place] DETECT Study: Project # [id number], Blow Molder: Saad Bray, PhD. SUMMARY: Goal: Establish test [...] contact study staff at ; after hours Blow Molder via the [facility] hospital diffusion furnace operator . Please contact study team before resolving/deleting from patients problem list. Study phone number: [phone]. Diagnosis changed due to Research Module. Go to Snapshot for study details. Encounter for examination fo r normal comparison and control in clinical research program 07/24/2018 03/17/2022 Overview: DO NOT DELETE [facility] DET[facility] Study: Project # [id number], Blow Molder: Mandeep Mcpherson, MS, MPH. SUMMARY: Goal: Establish [...] contact study staff at ; after hours Blow Molder via the [facility] hospital diffusion furnace operator . - Please contact study team before resolving/deleting from patients problem list. Study phone number: [phone]. Diagnosis changed due to Research Module. 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 Does not help the back pain [...] as of this encounter (statuses as of 02/08/2024) Immunizations Name Administration Dates Next Due COVID-19 mRNA, LNP-s, No Pre serve, 2-Dose Series ([employer]) 08/04/2021,11/20/2020,10/28/2020 Pneumococcal Conjugate Vacc, 13 Valent (Prevnar) [...] No 09/28/2018 documented as of this encounter Miscellaneous Notes * Telephone Encounter - Keke Hdez OSA - 02/08/2024 9:51 AM EDT Called patient and patient is setup for a colonoscopy on 08/26/24 * Telephone Encounter - Laurie Martinez OSA - 02/07/2024 4:38 PM EDT Referral COLONOSCOPY, GI REFERRAL OP [[id number]] (Order [id number]) Currently Active Insurance Payor Plan Subscriber Member ID GHP JASBIR GHP GOLD PREFERRED ENHANCED MP-DD SHELLEY NELSON [id number] PCP Information Primary Care Provider None Specified Order Information Date Department Ordering Authorizing 02/07/2024 [facility], Yesenia Mckeon LPN Luther, Jorden Michael, PA-C Cosign Info To be Signed By ALEXIS JOHNSON Order Providers Authorizing Provider Encounter Provider Alexis Johnson PA-C Luther, Jorden Michael, PA-C Supervision Information Encounter Supervising Provider Type of Supervision Bekah Keating DO General Referral (Authorized) ID: [id number] Created on: 02/07/2024 Referred by Referred to Alexis Johnson PA-C Gastroenterology Reason: Ancillary Services Required Priority: Within 30 days (routine) Type: Ancillary Services Visits Requested: 999 Decision Date: 02/07/2024 Start Date: 02/07/2024 Related Appointments None Associated Diagnoses Special screening for malignant neoplasms, colon [Z12.11] Comments ALERT: Do not order for pediatric patients (18 years or younger). Cancel off screen and order PEDS GASTROENTEROLOGY CONSULT (Type: 1 visit only-Evaluate and Treat) The following Pt. Instructions are available: - Gastro Colonoscopy Prep Instructions [04033] - Gastro Colonoscopy Prep Instructions (Gibraltarian Version) [94908] Go to the Pt. Instructions section within the Visit Navigator to access. Colonoscopy ASGE Guidelines: Average risk screening (begin at age 50, 10 year intervals) ADDITIONAL INFORMATION 1. Is the patient on Coumadin? No 2. Is the patient on Pradaxa? No Status History Encounter View Encounter Order Questions Question Answer Referral Priority Within 30 days (routine) Where should this appointment be scheduled? [facility] Encounter View Encounter THIS REFERRAL HAS BEEN ELECTRONICALLY SIGNED * Administrative Questions: [phone] or [id number] Reprint Requisition COLONOSCOPY, GI REFERRAL OP (Order #[id number]) on 02/07/24 documented in this encounter Plan of Treatment Upcoming Encounters Date Type Department Care Team (Late st Contact Info) Description 04/10/2024 10:00 AM EDT Office Visit Rheumatology, [facility] [address] [facility] [place] [address] Jonny Guzman PA-C [address] [facility], [place] [address] 06/18/2024 6:00 PM EST Office [facility] [place] [facility] [phone] Reina Cross CRNP [address] [place] [address] 08/16/2024 1:50 PM EST Nurse Only Ancillary 1st Floor, [place] [facility] [address] [place], [facility] Well[facility] 2 [facility] [address] 08/21/2024 2:45 PM EST Office Visit Ophthalmology, [place] [address] [facility] [place] [address] Juan Childers MD [address] [place] [address] 08/26/2024 11:30 AM EST Hospital Encounter ENDO [facility], Endoscopy [address] [phone] Willam Cardona MD [address] [place] [address] 08/26/2024 11:30 AM EST - 08/26/2024 12:00 PM EST Surgery ENDO [facility], Endoscopy [address] [phone] Willam Cardona MD [address] [place] [address] COLONOSCOPY FLEXIBLE PROXIMAL DIAGNOSTIC Scheduled Procedures Name [...] Additional history exists DXA Scan 08/08/2024 08/08/2019, 09/15, 06/16/2009 Mammogram 08/14/2024 08/14/2023, 04/0 08/2020, 01/12/2018, Additional history exists TSH 09/21/2024 09/22/2023, 07/18, 08/10/2023, Additional history exists Albumin/Creatinine Ratio 12/14/2024 024, 12/22/2022, 10/18/2021 Diabetic Foot Exam 12/14/2024 12/15/2023, 0 12/22/2022, 06/24/2021, Additional history exists GFR 12/14/2024 12/15/2023, 0 12/2023, 11/03/2023, Additional history exists DTaP,Tdap,and Td Vaccines (3 - Td or Tdap) 12/21/2027 12/20/2017, 10/31/2007 Lipid Panel 12/23/2027 12/22/2022, 0 10/2021, 07/20/2021, Additional history exists Pneumococcal Vaccine: [...] this encounter Medical Devices Implanted Type Area Hog Buyer Device Identifier Shelf Expiration Date Model / Serial / Lot Cable Accessory 3550-31 - [id number] Implanted:Qty : 1 on 09/04/2009 [place] [facility] [place]A: Spine Thoracic [employer] : NEUROLOGIC PAIN 06/22/2013 [id number] / / [id number] Description:Titan anchor acc essory kit 3550-39 Lead Kit 01852-12 - [id number] Implanted:Qty : 1 on 09/04/2009 at [place] [facility] [place]A: Spine Thoracic [employer] : NEUROLOGIC PAIN 04/30/2013 [id number] / / [id number] Description:medtronic specif y 5-6-5 lead kit for spinal cord stimulation. Lens 19.5 [id number] - [id number] Implanted:Qty : 1 on 12/25/2015 by Juan Childers MD at OR [facility] Left: Eye JOSEPH : SURGICAL 01/13/2017 [id number] / / Patch Sm Vent Hernia [id number] - [id number] Implanted:Qty : 1 on 04/14/2016 by Linda Peña DO at OR [facility] N/A: Abdomen CR BARD : DAVOL 11/11/2018 [id number] / / [id number] Lens 20.0 [id number] - [id number] - [id number] Implanted:Qty : 1 on 06/29/2018 by Juan Childers MD at OR [facility] Right: Eye JOSEPH : SURGICAL 12/14/2021 [id number] / [id number] / documented as of this encounter Advance [...]
--- OUTSIDE RECORDS SUMMARY | 2024-02-13 06:04 | External Medical Summary | Summary of Care ---
Author Name Unknown Organization [facility] Address [address] [facility] [address] Phone [phone] Care Team Providers Care Director Microbiology Name Role Phone Unavailable Primary Care Provider Unavailabl e Reason for Referral * Ancillary Services (Within 30 days (routine)) - Authorized Specialty Diagnoses / Procedures Referred By Kartik coats Referred To Contact Gastroenterology Diagnoses Special screening for malignant neoplasms, colon Alexis Soriano PA-C [address] [place] [address] Referral ID Status Reason Start Date Expiration Date Visits Requested Visits Authorized [id number] Authorized Ancillary Services Required 02/07/2024 999 999 Question Answer Referral Priority Within 30 days (routine) Where should this appointment be scheduled? [facility] Comments ALERT: Do not order for pediatric patients (18 years or younger). Cancel off screen and order PEDS GASTROENTEROLOGY CONSULT (Type: 1 visit only-Evaluate and Treat) The following Pt. Instructions are available: - Gastro Colonoscopy Prep Instructions [98000] - Gastro Colonoscopy Prep Instructions (Dutch Version) [14440] Go to the Pt. Instructions section within the Visit Navigator to access. Colonoscopy ASGE Guidelines: Average risk screening (begin at age 50, 10 year intervals) ADDITIONAL INFORMATION 1. Is the patient on Coumadin? No 2. Is the patient on Pradaxa? No Reason for Visit * Reason Comments pre-op exam [facility] Jackelyn gloria - Back surgery. 02/12 Encounter Details Date Type Department Care Team (Late st Contact Info) Description 02/07/2024 11:00 AM EDT Office Visit [facility] [place], [address] [place] [id number] Alexis Soriano PA-C [address] [facility] [place] [id number] Preop examination*; Chronic bilateral low back pain, unspecified whether sciatica present; History of pulmonary embolism; Type 2 diabetes mellitus with hemoglobin A1c goal of less than 7.0% (HCC); Coronary artery calcification; Essential hypertension with goal blood pressure less than 130/80; BHAVIN (obstructive sleep apnea); Acquired hypothyroidism; Family history of bleeding or clotting disorder; Risk and functional assessment; Special screening for malignant neoplasms, colon Allergies Active Allergy Reactions Criticality Noted Date Comments Alprazolam 10/22/2001 Irritable/mean Lorazepam Other (Please comment) 06/10/2013 Confused and "out of it for days" Baclofen Psych complications 11/16/2012 Ibuprofen 10/22/2001 GI intolerence Metformin 10/18/2021 Stomach documented as of this encounter (statuses as of 02/07/2024) Medications Medication Sig Dispensed Refills Start Date [...] TIMES A DAY 90 Capsule 5 08/18/2023 5 Active Apixaban 5 MG Oral Tablet (Eliquis)Indications [...] EVERY MORNING . 90 Capsule 1 01/16/2024 Active Folic Acid 1 MG Oral TabletIndications:Ho mocystinemia TAKE 5 TABLETS BY MOUTH DAILY 500 Tablet 3 01/23/2024 Active hydroCHLOROthiazide 12.5 MG Oral CapsuleIndications:E ssential hypertension with goal blood pressure less than 130/80 Take 1 Capsule by mouth in the morning. 90 Capsule 3 02/07/2024 Active documented as of this encounter (statuses as of 02/07/2024) Active Problems Problem Noted Date Diagnosed Date [...] irritable bowel syndrome 03/29/2018 Other insomnia 12/20/2017 BHVAIN (obstructive sleep apnea) 11/16/2012 Vitamin D deficiency [...] du to cough, fatigue. Lotrel, chlorthalidone, K. 12/11 self d/c chlorthalidone due to cost.Tolerating being off documented as of this encounter (statuses as of 02/07/2024) Resolved Problems Problem Noted Date Diagnosed Date [...] program 07/24/2018 08/23/2019 Overview: DO NOT DELETE [facility] DET[facility] Study: Project # [id number], Gravel Truck Driver: Saad Bray, PhD. SUMMARY: Goal: Establish test [...] contact study staff at ; after hours Gravel Truck Driver via the [facility] box covering machine operator . Please contact study team before resolving/deleting from patients problem list. Study phone number: [phone]. Diagnosis changed due to Research Module. Go to Snapshot for study details. Encounter for examination fo r normal comparison and control in clinical research program 07/24/2018 03/17/2022 Overview: DO NOT DELETE - [facility] JESSICA Study: Project # [id number], Gravel Truck Driver: Mandeep Mcpherson, MS, MPH. SUMMARY: Goal: Establish [...] contact study staff at ; after hours Gravel Truck Driver via the [facility] hospital box covering machine operator . - Please contact study team before resolving/deleting from patients problem list. Study phone number: [phone]. Diagnosis changed due to Research Module. 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 DISC DIS NEC-C spine 10/11/2005 017 Overview: [...] as of this encounter (statuses as of 02/07/2024) Immunizations Name Administration Dates Next Due COVID-19 mRNA, LNP-s, No Pre serve, 2-Dose Series (Prifloat) 08/04/2021,11/20/2020,10/28/2020 Pneumococcal Conjugate Vacc, 13 Valent (Prevnar) [...] on file documented as of this encounter Last Filed Vital Signs Vital Sign Reading Time Taken Comments Blood Pressure 176/82 02/07/2024 10:47 AM EDT Pulse 65 02/07/2024 10:47 AM EDT Temperature 36.2 C (97.2 F) 02/07/2024 10:47 AM E DT Respiratory Rate 18 02/07/2024 10:47 AM EDT Oxygen Saturation 97% 02/07/2024 10:47 AM EDT Inhaled Oxygen Concentration - - Weight 90.9 kg (200 lb 6.4 oz) 02/07/2024 10:47 AM EDT Height - - Body Mass Index 33.35 01/19/2024 3:03 PM EDT documented in this encounter Functional Status Functional Status Response [...] No 09/28/2018 documented as of this encounter Patient Instructions * Patient Instructions* Yesenia Robert LPN - 02/07/2024 10:50 AM EDT Images from the original note were not included. Patient Instructions - Fall Prevention (This education is for all patients over 65 regardless of symptoms) Remember to take your current medications as prescribed. In order to prevent falls, you are encouraged to: Exercise Utilize assistive/adaptive devices Avoid multifocal lenses when walking Avoid hazards in home Maintain a regular toileting schedule Any questions please contact our office. Preventing Falls in the Home (This education is for all patients over 65 regardless of symptoms) As you get older, falls are more likely. Thats because your reaction time slows. Your muscles and joints may also get stiffer, making them less flexible. Illness, medications, and vision changes can also affect your balance. A fall could leave you unable to live on your own. To make your home safer, follow these tips: Floors Put nonskid pads under area rugs Remove throw rugs Replace worn floor coverings Tack carpets firmly to each step on carpeted stairs. Put nonskid strips on the edges of uncarpeted stairs Keep floors and stairs free of clutter and cords Arrange furniture so there are clear pathways Clean up any spills right away Bathrooms Install grab bars in the tub or shower Apply nonskid strips or put a nonskid rubber mat in the tub or shower Sit on a bath chair to bathe Use bathmats with nonskid backing Lighting Keep a flashlight in each room Put a nightlight along the pathway between the bedroom and the bathroom Kayla Patient Education Copyright 2008 - 2010 Kayla except where otherwise noted Preventing Falls: Exercises to Improve Balance, Flexibility, Strength, and Staying Power (This education is for all patients over 65 regardless of symptoms) Certain types of exercises may help make you less likely to fall. Try the ones below. Or do other exercises that your healthcare provider suggests. Depending on your health, you may need to start slowly. Dont let that stop you. Even small amounts of exercise can help you. Be sure to talk to yourhealthcare provider before starting any exercise program. Improve Balance Many types of exercise can help improve balance. Wilver chi and yoga are good examples. Heres another one to try. You can do it anytime and almost anywhere. Stand next to a counter or solid support. Push yourself up onto your tiptoes. Hold for 5 seconds. If you start to lose your balance, hold on to the counter. Rest and repeat 5 times. Work up to holding for 20 to 30 seconds, if you can. Increase Flexibility Being more flexible makes it easier for you to move around safely. Try exercises like the seated hamstring stretch. Sit in a chair and put one foot on a stool. Straighten your leg and reach with both hands down either side of your leg. Reach as far down your leg as you can. Hold for about 20 seconds. Go back to the starting position. Then repeat 5 times. Switch legs. Build Strength Resistance exercises help build strength. You can do them without equipment. Or you can use weights, elastic bands, or special machines. One such exercise is called the biceps curl. You can hold a 1 pound weight or even a can of soup. Do this exercise at least 3 times a week. Strive for everyday. Sit up straight in a chair. Keep your elbow close to your body and your wrist straight. Bend your arm, moving your hand up to your shoulder. Then slowly lower your arm. Repeat 5 times. Switch to the other arm. Build Your Staying Power Aerobic exercises make your heart and lungs stronger so you can keep moving longer. Walking and swimming are two of the best types of exercises you can do. Using a stationary bike is great, too. Find an aerobic exercise that you enjoy. Start slowly and build up. Even 5 minutes is helpful. Aimfor a goal of 30 minutes, at least 3 times a week. You dont have to do 30 minutes in one session. Break it up and walk a little throughout the day. More Helpful Tips Start easy. Slowly work up to doing more. Talk with your healthcare provider about the best exercises for you. Call senior centers or health clubs about exercise programs. If needed, have a family member watch you walk every so often to check your stability. Exercise with a friend. Choose an activity you both enjoy. Try exercises that you can do anytime, anywhere. Here are two examples. Have someone with you when you first try these: Practice walking by placing one foot right in front of the other. Stand up and sit down 10 times. Repeat this throughout the day. Kayla Patient Education Copyright 2009 - 2010 Kayla except where otherwise noted. Preventing Falls: Moving Safely Using a Cane or Walker (This education is for all patients over 65 regardless of symptoms) Keep the cane away from your feet so you dont trip. A walking aid, such as a cane or walker, can help you stay more independent and avoid falls. Remember to keep your walking aid within easy reach when youre in a chair or in bed. And learn how to use it safely so you dont injure yourself. Using a Cane If you have a stronger side, hold the cane on that side. Get your balance. Move the cane and your weaker leg forward. Support your weight on both the cane and your weaker side. Step with your stronger leg. Start again from step 1. If youre using a folding walker, be sure you know how to lock it open. Check that its locked open before each use. Using a Walker Roll the walker (or lift it, if youre using one without wheels) forward about 12 inches. Step forward with your weaker leg first. Use the walker to help keep your balance. Bring your other foot forward to the center of the walker. Start again from step 1. Helpful Tips Check with your healthcare provider about the right walking aid to use. Ask about a walker with a seat attached. Check the tips of your cane or walker to make sure they have nonskid covers. Move slowly from room to room. Dont mcclellan. Sit down to get dressed. Use a vitaly pack or backpack to keep your hands free. Get help for jobs that mean climbing, even on a stepstool. Kayla Patient Education Copyright 2008 - 2010 Kayla except where otherwise noted. Urinary Incontinence Plan of Care Documentation: (This education is for all patients over 65 regardless of symptoms) Current medications reconciled. Patient encouraged to: Practice kegal exercises Provide education materials Use the restroom every 2 hours throughout the day Limit caffeine, alcohol, spicy foods and acidic foods Keep a bladder diary Limit fluid intake 3-4 hours before bed Lose weight Prevent constipation Take fluid pills at a time when you can get to the bathroom quickly Control sugar better if diabetic Limit fluid intake to 60 oz. per day Wear support stockings (TEDs)if you have edema Yesenia Robert LPN 02/07/2024 Kegel Exercises Kegel exercises dont require special clothing or equipment. Theyre easy to learn and simple to do. And if you do them right, no one can tell youre doing them, so they can be done almost anywhere. Your doctor, nurse, or physical therapist can answer any questions you have and help you get started. A Weak Pelvic Floor The pelvic floor muscles may weaken due to aging, and vaginal childbirth, injury, surgery, chronic cough, or lack of exercise. If the pelvic floor is weak, your bladder and other pelvic organs may sag out of place. The urethra may also open too easily and allow urine to leak out. Kegel exercises can help you strengthen your pelvic floor muscles so they can better support the pelvic organs and control urine flow. How Kegel Exercises Are Done Try each of the Kegel exercises described below. When youre doing them, try not to move your leg, buttock, or stomach muscles. While youre urinating, try to stop the flow of urine. Start and stop it as often as you can. Contract as if you were stopping your urine stream, but do it when youre not urinating. Tighten your rectum as if trying not to pass gas. Contract your anus, but dont move your buttocks. Helpful Hints Do your Kegels as often as you can. The more you do them, the faster youll feel the results. Pick an activity you do often as a reminder. For instance, do your Kegels every time you sit down. Tighten your pelvic floor before you sneeze, get up from a chair, cough, laugh, or lift. This protects your pelvic floor from injury and can help prevent urine leakage. Try to hold each Kegel for a slow count to five. You probably wont be able to hold them for thatlong at first, but keep practicing. It will get easier as your pelvic floor gets stronger. Eventually, special weights that you place in your vagina may be recommended to help make your Kegels even more effective. Kayla Patient Education Copyright 2009 - 2010 Kayla except where otherwise noted. Here are some helpful tips for your urinary incontinence: (This education is for all patients over 65 regardless of symptoms) Practice Kegel exercises Use the restroom every 2 hours throughout the day Limit caffeine, alcohol, spicy foods, and acidic foods Keep a bladder diary Limit fluid intake 3-4 hours before bed Lose weight Prevent constipation Take fluid pills at a time when can get to the bathroom quickly Control sugar better if diabetic Limit fluid intake to 60 oz. per day Any questions, please feel free to contact our office. Colorectal Cancer Screening Colorectal cancer (cancer in the colon or rectum) is a leading cause of cancer deaths in the [place] But it doesnt have to be. When this cancer is found and removed early, the chances of a full recovery are very good. Because colorectal cancer rarely causes symptoms in its early stages, screening for the disease is important. Its even more crucial if you have risk factors for the disease. Learn more about colorectal cancer and its risk factors. Then talk to your healthcare provider about being screened. You could be saving your own life. Risk factors for colorectal cancer Your risk of having colorectal cancer increases if you: Are 50 years of age or older Have a family history or personal history of colorectal cancer or polyps Have a personal history of type 2 diabetes, Crohns disease, or ulcerative colitis Have an inherited genetic syndrome like Rogers syndrome (also known as HNPCC) or familial adenomatous polyposis (FAP) Are very overweight Are not physically active Smoke Drink a lot of alcohol Eat a lot of red or processed meat The colon and rectum Waste from food you eat enters the colon from the small intestine. As it travels through the colon,the waste (stool) loses water and becomes more solid. Intestinal muscles push it toward the sigmoid--the last section of the colon. Stool then moves into the rectum, where its stored until its ready to leave the body during a bowel movement. How cancer develops Polyps are growths that form on the inner lining of the colon or rectum. Most are benign, which means they arent cancerous. But over time, some polyps can become cancer (malignant). This happens when cells in these polyps begin growing abnormally. In time, malignant cells invade more and more ofthe colon and rectum. The cancer may also spread to nearby organs or lymph nodes or to other parts of the body. Finding and removing polyps can help prevent cancer from ever forming. Your screening Screening means looking for a health problem before you have symptoms. During screening for colorectal cancer, your healthcare provider will ask about your health history, examine you, and do one or more tests. History and exam The history and exam involve the following: Health history. Your healthcare provider will ask about your health history. Mention if a family member has had colon cancer or polyps. Also mention any health problems you have had in the past. Digital rectal exam (FLORA). During a FLORA, the healthcare provider inserts a lubricated gloved fingerinto the rectum. The test is painless and takes less than a minute. Healthcare providers agree thatthis test alone is not enough to screen for colorectal cancer. Screening test choices: Fecal occult blood test (FOBT) or fecal immunochemical test (FIT) These tests check for occult blood in stool (blood you cant see). Hidden blood may be a sign of colon polyps or cancer. A small sample of stool is tested for blood in a laboratory. Most often, youcollect this sample at home using a kit your healthcare provider gives you. Follow the instructionscarefully for using this kit. You might need to avoid certain foods and medicines before the test, as directed. Barium enema with contrast (double-contrast barium enema) This test uses X-rays to provide images of the entire colon and rectum. The day before this test, you will need to do a bowel prep to clean out the colon and rectum. A bowel prep is a liquid diet plus strong laxatives or enemas. You will be awake for the test, but you may be given medicine to help you relax. At the start of the test, a radiologist (a healthcare provider who specializes in imagingtests) places a soft tube into the rectum. The tube is used to fill the colon with a contrast liquid (barium) and air. This can be uncomfortable for some people. The liquid helps the colon show up clearly on the X-rays. Because the test uses X-rays, it exposes you to a small amount of radiation. Virtual colonoscopy This exam is also called a CT colonography. It uses a series of X-ray photographs to create a 3-D view of the colon and rectum. The day before the test, you will need to do a bowel prep to clean out your colon. Your healthcare provider will give you instructions on how to do this. During the procedure, you will lie on a table that is part of a special X-ray machine called a CT scanner. A small tube will be placed into your rectum to fill the colon and rectum with air. This can be uncomfortable for some people. Then, the table will move into the machine and pictures will be taken of your colonand rectum. A computer will combine these photos to create a 3-D picture. Because the test uses X-rays, it exposes you to a small amount of radiation. Cologuard Cologuard is an easy to use, noninvasive colon cancer screening test that you can use in the privacy of your own home. It identifies altered DNA and/or blood in stool, which are associated with the possibility of colon cancer or precancer. DNA is continuously shed from cells in the intestinal lining, where it is passed into the stool. Ifcancer or precancer is present, abnormal cells will shed into the colon and stool along with normalcells. A molecular biology process is used to capture specific pieces of DNA for further analysis. Scope exams Here are two types of scope exams: Colonoscopy. This test can be used to find and remove polyps anywhere in the colon or rectum. The day before the test, you will do a bowel prep. This is a liquid diet plus a strong laxative solution or an enema. The bowel prep will cleanse your colon. You will be given instructions for this. Just before the test, you are given a medicine to make you sleepy. Then, a long, flexible, lighted tube called a colonoscope is gently inserted into the rectum and guided through the entire colon. Images ofthe colon are viewed on a video screen. Any polyps that are found are removed and sent to a lab fortesting. If a polyp cant be removed, a sample of tissue is taken and the polyp might be removed l ater during surgery. You will need to bring someone with you to drive you home after this test. Sigmoidoscopy. This test is similar to colonoscopy, but focuses only on the sigmoid colon and rectum. As with colonoscopy, bowel prep must be done the day before this test. It might not need to be ascomplete as the bowel prep for a colonoscopy. You are awake during the procedure, but you may be given medicine to help you relax. During the test, the healthcare provider guides a thin, flexible, lighted tube called a sigmoidoscope through your rectum and lower colon. The images are displayed on avideo screen. Polyps are removed, if possible, and sent to a lab for testing. Colonoscopy is the only screening test that lets your healthcare provider see the entire colon and rectum. This test also lets your healthcare provider remove any pieces of tissue that need to be looked at by a lab. If something suspicious is found using any other tests, you will likely need a colonoscopy. When to call your healthcare provider after a test Call your healthcare provider if you have any of the following after any screening test: Bleeding Fever of 100.4F (38C) or higher, or as directed by your healthcare provider Abdominal pain Vomiting Date Last Reviewed: 05/20/201519990064-8647 [employer]. [address] [place] [address], [place] [address]. All rights reserved. This information is not intended as a substitute for professional medical care. Always follow your healthcare professional's instructions. documented in this encounter Progress Notes * Alexis Soriano PA-C - 02/07/2024 10:52 AM EDT Images from the original note were not included. History of Present Illness Shelley Nelson is a 73 year old female that presents for pre-op exam. Follows with Dr. Sapp for hx of chronic low back pain. Has had at least 5 previous surgeries by other surgeons. She states they intend to place "another brandon," and "cleaning out" lumbar spine. This is to be done at [facility] on 02/13/24. - states she just had labs yesterday at [facility], but I don't have results. Will try to request. History of type 2 diabetes, last A1c was 6.8 in 07/2023. Doesn't check sugars at home. History of hypertension, currently uncontrolled. Confirmed she takes losartan 100 mg daily as well as Toprol 50 mg daily. Doesn't check BP at home; states she tries to monitor salt. Former smoker, quit in . - denies chest pain; does report [facility] which is unchanged. Unable to walk 100 yards, but this is due to back pain. - History of at least moderate coronary artery calcifications seen on CT scan from 11/2023 in addition to [id number] emphysematous changes. Has not been evaluated by Cardiology. She did have anecho in 09/2023 which showed EF of 69%, mild MR, mild LVH. FMHx of CAD - sister with CABG x3 at age68. Last EKG from 07/2023 showed NSR with nonspecific T-wave abnormality. Updating. Follows with Hematology for history of PE in 07/2023, last visit 12/2023. She was treated for this with Eliquis. She repeated CT scan of chest in 11/2023 which was negative for PE. She was told to discontinue the Eliquis following this negative CT. Family history of blood clotting disorder; states to cousins on mother's side have factor 5 Leiden mutation, in both of her brothers have had problemswith blood clotting in the past. Patient Active Problem List Diagnosis HTN, goal below 150/90 History of tobacco use Dyslipidemia, goal LDL below 100 Obesity, Class II, BMI 35-39.9, no comorbidity Vitamin D deficiency BHAVIN (obstructive sleep apnea) Other insomnia Other irritable bowel syndrome GERD without esophagitis Generalized anxiety disorder Type 2 diabetes mellitus with hemoglobin A1c goal of less than 7.0% (HCC) Type 2 diabetes mellitus with polyneuropathy (HCC) Chronic major depressive disorder Recurrent major depressive disorder (HCC) Claustrophobia Type II diabetes mellitus with neurological manifestations (HCC) Dizziness on standing Ambulatory dysfunction Hypokalemia Moderate episode of recurrent major depressive disorder (HCC) Homocystinemia Review of patient's allergies indicates: Allergen Reactions Alprazolam Irritable/mean Ativan [Lorazepam] Other (Please comment) Confused and "out of it for days" Baclofen Psych complications Ibuprofen GI intolerence Metformin Stomach Current Outpatient Medications Medication Sig Dispense Refill Proventil HFA 108 (90 Base) MCG/ACT Inhalation Aerosol Solution Inhale by mouth 2 Puffs every 4 hours as needed for Wheezing. 6.7 g 0 Losartan Potassium 100 MG Oral Tablet (Cozaar) TAKE ONE TABLET BY MOUTH EVERY DAY 90 Tablet 2 Metoprolol Succinate ER 50 MG Oral Tablet Extended Release 24 Hour (toPROL XL) TAKE ONE TABLET BY MOUTH EVERY DAY 90 Tablet 2 Atorvastatin Calcium 40 MG Oral Tablet (Lipitor) TAKE 1 TABLET BY MOUTH DAILY 90 Tablet 2 traZODone HCl 50 MG Oral Tablet (Desyrel) TAKE 1 TO 2 TABLETS BY MOUTH AT BEDTIME NEEDED FOR SLEEP 180 Tablet 1 Meclizine HCl 25 MG Oral Tablet (Antivert) Take 1 Tablet by mouth 3 times a day as needed for Dizziness. 30 Tablet 0 Albuterol Sulfate HFA 108 (90 Base) MCG/ACT Inhalation Aerosol Solution Inhale 2 Puffs by mouth in the morning and 2 Puffs at noon and 2 Puffs in the evening and 2 Puffs before bedtime. 18 g 5 Fluticasone-Salmeterol 250-50 MCG/ACT Inhalation Aerosol Powder Breath Activated (Advair Diskus) Inhale 1 Puff by mouth in the morning and 1 Puff before bedtime. 60 Each 3 Levothyroxine Sodium 25 MCG Oral Tablet (Levoxyl) Take 1 Tablet by mouth in the morning. (at least 30 min prior to breakfast or other meds). 30 Tablet 11 Gabapentin 400 MG Oral Capsule (Neurontin) TAKE ONE CAPSULE BY MOUTH THREE TIMES A DAY 90 Capsule 5 Folic Acid 1 MG Oral Tablet Take 1 Tablet by mouth in the morning. 90 Tablet 3 tiZANidine HCl 4 MG Oral Tablet (Zanaflex) Take 1 Tablet by mouth every 6 hours as needed for Muscle spasms. 30 Tablet 0 Omeprazole 40 MG Oral Capsule Delayed Release (PriLOSEC) TAKE ONE CAPSULE BY MOUTH TWICE A DAY 180 Capsule 3 Venlafaxine HCl ER 150 MG Oral Capsule Extended Release 24 Hour (Effexor XR) TAKE 1 CAPSULE BY MOUTH EVERY MORNING . 90 Capsule 1 hydroCHLOROthiazide 12.5 MG Oral Capsule Take 1 Capsule by mouth in the morning. 90 Capsule 3 Apixaban 5 MG Oral Tablet (Eliquis) Take 1 Tablet by mouth in the morning and 1 Tablet before bedtime. Do not start before September 14, 2023. (Patient not taking: Reported on 01/19/2024) 180 Tablet 1 Folic Acid 1 MG Oral Tablet TAKE 5 TABLETS BY MOUTH DAILY 500 Tablet 3 No current facility-administered medications for this visit. Past Medical History: Diagnosis Date Anxiety Asthma Asthma with COPD ([facility]) 07/04/2014 Kay's esophagus 01/04/2011 await bx, path shows again shows evidence of inflammation at end of esophagus consistant with shortsegment barretts esophagitis , polyp in stomach was inflammatory, negative for H Pylori repeat in 3years Benign neoplasm of colon Benign neoplasm of colon 04/24/2009 villous adenoma and adenoma/repeat colonoscopy in 6 months Benign neoplasm of colon 10/29/2009 2 polyps adenomatous tissue repeat in one yr Blepharitis Broken Tailbone Chest pain 08/24/2018 Acute COPD (chronic obstructive pulmonary disease) ([facility]) COPD, severe ([facility]) 02/11/2015 Degeneration of lumbosacral intervertebral disc 06/25/2009 Depressive disorder, not elsewhere classified Dermatochalasis Diabetes type 2, no ocular involvement ([facility]) DISC DIS NEC-C spine 10/11/2005 MRI 10-08-2005 LH: mild mutilevel DDD C3-4,C5-6,T1-2,mild canal stenoisis at C3-4. Do not give narcotics 08/13/2014 Narcotics only to be given by Myself as PCP Dyslipidemia, goal LDL below 100 06/25/2009 Per Lipid Taxonomy. Niacin Simvastatn Did not tolerated fish oil 04/26 change to pravastatin. Generalized anxiety disorder 06/01/2009 Citalopram changed to sertraline Generalized osteoarthritis Headache 08/24/2018 Acute Homocystinemia 09/25/2023 HTN, goal below 140/90 HTN, goal below 150/90 Atenolol chlothalidone, lasix. Basic 03/25, UA 10/24 Atenolol stopped du to cough, fatigue. Lotrel,chlorthalidone, K. 06/26 self d/c chlorthalidone due to cost.Tolerating being off Hypertensive urgency 08/24/2018 Acute IFG (impaired fasting glucose) 02/09/2018 INFORMATION bear tracks OS Intractable back pain 03/11/2015 Acute Metabolic syndrome 04/12/2006 Feb 19: TC 213,TG 256,HDL77,LDL84,alt 23, FBS 112.,NML CBC,BMP.ow Mixed dyslipidemia Neuropathy BHAVIN (obstructive sleep apnea) 11/16/2012 no CPAP Palpitations PONV (postoperative nausea and vomiting) Pseudophakia OU Reflux esophagitis Screening for malignant neoplasm of breast 04/04/2005 Mammogram neg. Special screening for other specified conditions(V82.89) 04/04/2005 PAP vaginal cuff neg . 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) 09/26/2019 duplicate Past Surgical History: Procedure Laterality Date ANESTHESIA FOR CAT OR MRI SCAN N/A 10/28/2014 ANESTHESIA FOR NON-INVASIVE IMAGING (MRI OR CT) performed by [facility] at OR [facility] ANESTHESIA FOR CAT OR MRI SCAN N/A 09/03/2015 ANESTHESIA FOR NON-INVASIVE IMAGING (MRI OR CT) performed by [facility] at OR [facility] ANESTHESIA FOR CAT OR MRI SCAN N/A 09/10/2019 ANESTHESIA FOR NON-INVASIVE IMAGING (MRI OR CT) performed by [facility] at OR [facility] ANESTHESIA FOR CAT OR MRI SCAN N/A 12/12/2019 ANESTHESIA FOR NON-INVASIVE IMAGING (MRI OR CT) performed by [facility] at OR [facility] ANESTHESIA FOR CAT OR MRI SCAN N/A 07/06/2021 ANESTHESIA FOR NON-INVASIVE IMAGING (MRI OR CT) performed by [facility] at OR [facility] ANESTHESIA FOR CAT OR MRI SCAN N/A 11/30/2023 ANESTHESIA FOR NON-INVASIVE IMAGING (MRI OR CT) performed by [facility], In And Out Surgery at OR [facility] ARTHROCENT ASP &/OR INJ MAJOR JX/BURSA W/O US Right 01/28/2021 ARTHROCENTESIS OR INJECTION MAJOR JOINT performed by Sreekanth Garcia MD at OR [facility] ARTHROCENT ASP &/OR INJ MAJOR JX/BURSA W/O US Right 10/01/2021 ARTHROCENTESIS OR INJECTION MAJOR JOINT performed by Zane Gann Jr., MD at OR [facility] CARPAL TUNNEL SURGERY 1978 Carpal tunnel release CATHETERIZE LEFT HEART THRU SKIN 06/2009 normal coronaries COLONOSCOPY W/ LESION REMOVAL, SNARE 04/23 09 done one 10mm polyp in descending colon, one 13mm polyp in rectum, path pendingdiverticulosis COLONOSCOPY W/ SUBMUCOUS INJ 04/23/09 done villous adenoma and adenoma/repeat colonoscopy in 6 months COLONOSCOPY, DIAGNOSTIC (RECTUM) 01/04/2011 repeat in 3 years COLONOSCOPY, DIAGNOSTIC (RECTUM) 10/30/2013 Diverticulosis in the sigmoid colon, 1 hyperplatic polyp, repeat in 5 yrs/COLONOSCOPY FLEXIBLE PROXIMAL DIAGNOSTIC performed by Eldon Juarez MD at ENDOSCOPY [facility] COLONOSCOPY, DIAGNOSTIC (RECTUM) N/A 03/08/2018 poor prep/tattoo seen in sigmoid colon/diverticulosis sigmoid colon/non-bleeding internal hemorrhoids/adenomatous polyps/recall 3 years/COLONOSCOPY FLEXIBLE PROXIMAL DIAGNOSTIC performed by Deb Hall MD at OR [facility] COLONOSCOPY, REMOVE LESION 09/2003 hyperplastic polyps - 2 COLONOSCOPY/REMOVE LESION 10/29/2009 2 polyps adenomatous tissue repeat in one yr EGD, FLEXIBLE, DIAGNOSTIC 09/2003 barrets esophagus EGD, FLEXIBLE, DIAGNOSTIC 10/30/2013 small hiatus hernia, 1 hyperplastic gastric polyp, inflammation of esophagus with no evidence of Kay's esophagitis on bx, repeat in 3 yrs/ESOPHAGOGASTRODUODENOSCOPY (EGD), FLEXIBLE, TRANSORAL, DIAGNOSTIC performed by Eldon Juarez MD at ENDOSCOPY [facility] EGD, FLEXIBLE, DIAGNOSTIC N/A 08/07/2017 normal/ESOPHAGOGASTRODUODENOSCOPY (EGD), FLEXIBLE, TRANSORAL, DIAGNOSTIC performed by Eldon Juarez MD at ENDOSCOPY [facility] EGD, FLEXIBLE, DIAGNOSTIC N/A 12/12/2017 benign pyloric gland adenoma polyp/recall 6 months/ESOPHAGOGASTRODUODENOSCOPY (EGD), FLEXIBLE, TRANSORAL, DIAGNOSTIC performed by Deb Hall MD at OR [facility] EGD, FLEXIBLE, DIAGNOSTIC N/A 09/21/2020 esophageal dilation/medium sized hiatal hernia/ESOPHAGOGASTRODUODENOSCOPY (EGD), FLEXIBLE, TRANSORAL, DIAGNOSTIC performed by Deb Hall MD at ENDOSCOPY [facility] EGD, FLEXIBLE, W/BIOPSY 04/23/09 done barretts esophagus, hiatal hernia, gastric mucosall abnormality characterized by erythema, path pending EGD, FLEXIBLE, W/BIOPSY 01/04/2011 await bx, path shows again shows evidence of inflammation at end of esophagus consistant with shortsegment barretts esophagitis , polyp in stomach was inflammatory, negative for H Pylori repeat in 3years EGD, FLEXIBLE, W/BIOPSY N/A 03/08/2018 small hiatal hernia/biopsy show mild inflammation with otherwise normal microscopic structure/ESOPHAGOGASTRODUODENOSCOPY (EGD), FLEXIBLE, TRANSORAL, WITH BIOPSY SINGLE OR MULTIPLE performed by MD Carolina at OR [facility] EXPLORE/TREAT GLENOHUMERAL JOINT 07/2010 left impingement repair I&D POST CERV/THORACIC SPINE,DEEP ABSCESS 05/06/2011 INCISION DRAINAGE DEEP ABSCESS POSTERIOR CERVICAL THORACICSPINE performed by RAMSES NOLAN at OR [facility] IMPLANT EPIDURAL NEUROELECTRODES 09/04/2009 LAMINECTOMY FOR IMPLANTATION NEUROSTIMULATOR ELECTRODES EPIDURAL performed by RAMSES NOLAN [facility] INFORMATION 1989 Ruptured disc L5-S1 INFORMATION gall bladder removed LASERING OF SECONDARY CATARACT 03/07/2018 Yag cap OS MICROSURGERY ADD-ON N/A 03/03/2015 MICROSURGICAL SURGERY REQUIRING MICROSCOPE LISTED SEPARATELY performed by Ramses Nolan DO at OR [facility] MISCELLANEOUS ORDER ([facility] ONLY) 11/2006 cervical rhizotomy MISCELLANEOUS ORDER ([facility] ONLY) 01/11/2012 L4, L5 laminectomy OTHER 12/2008 lumbar spinal cord stimulator REMOVAL OF TONSILS, UNDER AGE 12 1963 Tonsillectomy,<12 Y/O REMOVE ADDED SPINE LAMINA, 1 SEG N/A 03/03/2015 LAMINECTOMY FACETECTOMY AND FORAMINOTOMY ADDITIONAL LEVELS performed by Ramses Nolan DO at [facility] REMOVE CATARACT, INSERT LENS PROSTH 12/25/2015 OS Reese SA60AT +19.5 REMOVE CATARACT, INSERT LENS PROSTH Left 12/25/2015 EXTRACAPSULAR CATARACT REMOVAL WITH INTRAOCULAR LENS performed by Juan Childers MD at OR [facility] REMOVE CATARACT, INSERT LENS PROSTH 06/29/2018 OD Reese SA60AT 20.0 REMOVE CATARACT, INSERT LENS PROSTH Right 06/29/2018 EXTRACAPSULAR CATARACT REMOVAL WITH INTRAOCULAR LENS performed by Juan Childers MD at OR [facility] REMOVE LUMBAR SPINE LAMINA, 1 SEG N/A 03/03/2015 LAMINECTOMY FACETECTOMY AND FORAMINOTOMY LUMBAR performed by Ramses Nolan DO at OR [facility] REMOVE LUMBAR SPINE LAMINA, 3+ SEGS 1994 HNP Excision REVISE/REMOVE SPINAL NEUROELECTRODE 09/04/2009 REVISION OR REMOVAL PERCUTANEOUS SPINAL NEUROSTIMULATOR ELECTRODE performed by RAMSES NOLAN at OR [facility] REVISE/REMOVE SPINAL NEURORECEIVER 04/25/2011 REVISION OR REMOVAL IMPLANTED SPINAL NEUROSTIMULATOR performed by RAMSES NOLAN at OR [facility] SPINAL NEUROSTIM ELECTRODE PLATE, REVISION 04/25/2011 REVISION SPINAL NEUROSTIM ELECTRODE PLATE performed by RAMSES NOLAN at OR [facility] STRESS TEST 08/2008 borderline transient ischemic dilation TENDON SHEATH INCISION, FINGER 09/2010 left TOTAL ABD HYSTERECTOMY W/WO REMOVAL OF TUBE(S) 1994 TAHb9. Ovaries remain UMBIL HERNIA REPAIR (REDUCIBLE) AGE 5+YR N/A 04/14/2016 REPAIR UMBILICAL HERNIA AGE 5 AND OVER performed by Linda Peña DO at OR [facility] Family History Problem Relation Name Age of Onset Diabetes Father Emphysema Father Asthma Father Hyperlipidemia Father Dementia Father age 81 Other (DVT) Father Other (Back problems) Father Hypertension Mother Arthritis Mother Hyperlipidemia Mother Heart Disorder Mother CHF, age 81 Hypertension Sister Yohana Heart disease Sister Yohana h/o CABG Arthritis Sister Yohana Hyperlipidemia Sister Yohana Asthma Sister Yohana Depression Sister Yohana Hypertension Brother Young Hypertension Brother Tony Hyperlipidemia Brother Tony Other (Headaches) Daughter x 2 Arthritis Grandmother (Maternal) Other (Other) Other no colon or breast cancer Family Status Relation Status Fa dm, back pain, DVT, lipid, ashtma Mo at age 80 chol, palpitations, glucoma; ischemic colitis Sis Alive migraines, bp, asthma Bro Alive htn, palpitation Bro Alive depresion, htn Son Alive back pain Magdi Alive asthma, allergies, migraines Magdi Alive allergies, GDM Magdi (Not Specified) MGMA (Not Specified) Other (Not Specified) Social History Socioeconomic History Marital status: Number of children: 3 Occupational History Occupation: disabled Comment: [employer] Tobacco Use Smoking status: Former Current packs/day: 0.00 Average packs/day: 1.5 packs/day for 20.0 years (30.0 ttl pk-yrs) Types: Cigarettes Start date: 07/17/1974 Quit date: 07/17/1994 Years since quittin.5 Smokeless tobacco: Never Vaping Use Vaping status: Never Used Substance and Sexual Activity Alcohol use: Not Currently Comment: Occ Drug use: No Sexual activity: Yes Partners: Male Social History Narrative 2 dogs. No mold. Second-hand smoke exposure as a child-from her father. Social Determinants of Health Financial Resource Strain: High Risk (12/15/2023) Financial Resource Strain Do you have any trouble paying for your medications, or do you think you might in the future? (Adult - for ages 18 years and over): Yes Food Insecurity: No Food Insecurity (12/15/2023) Food Insecurity Do you need food for this week? (Adult - for ages 18 years and over): No Transportation Needs: No Transportation Needs (12/15/2023) Transportation Needs Do you have trouble getting a ride to medical visits or work? (Adult - for ages 18 years and over):Never True Social Connections: Socially Integrated (12/15/2023) Social Connections How often do you feel lonely or isolated from those around you? (Adult - for ages 18 years and over): Never Housing Stability: Low Risk (12/15/2023) Housing Stability Do you currently live in a longterm or have no steady place to sleep at night? (Adult - for ages 18 years and over): No Do you think you are at risk of becoming homeless? (Adult - for ages 18 years and over): No Review of Systems Constitutional: Negative. Negative for chills and fever. HENT: Negative. Eyes: Negative. Respiratory: Positive for shortness of breath. Cardiovascular: Negative. Negative for chest pain, palpitations and leg swelling. Gastrointestinal: Negative. Negative for abdominal pain, blood in stool, constipation, diarrhea, nausea and vomiting. Endocrine: Negative. Genitourinary: Negative. Musculoskeletal: Positive for arthralgias, back pain, gait problem and myalgias. Skin: Negative. Negative for rash. Allergic/Immunologic: Negative. Neurological: Negative for syncope and light-headedness. Hematological: Negative. Psychiatric/Behavioral: Negative. Negative for dysphoric mood. The patient is not nervous/anxious. All other systems reviewed and are negative. Physical Exam BP 176/82 | Pulse 65 | Temp 36.2 C (97.2 F) (Tympanic) | Resp 18 | Wt 90.9 kg (200 lb 6.4 oz) |SpO2 97% | BMI 33.35 kg/m | BSA 2.04 m Physical Exam Vitals and nursing note reviewed. Constitutional: Appearance: Normal appearance. She is obese. HENT: Head: Normocephalic and atraumatic. Right Ear: Tympanic membrane, ear canal and external ear normal. Left Ear: Tympanic membrane, ear canal and external ear normal. Nose: Nose normal. Mouth/Throat: Mouth: Mucous membranes are moist. Pharynx: Oropharynx is clear. Eyes: Extraocular Movements: Extraocular movements intact. Conjunctiva/sclera: Conjunctivae normal. Pupils: Pupils are equal, round, and reactive to light. Cardiovascular: Rate and Rhythm: Normal rate and regular rhythm. Pulses: Normal pulses. Heart sounds: Normal heart sounds. No murmur heard. Pulmonary: Effort: Pulmonary effort is normal. Breath sounds: Normal breath sounds. No wheezing, rhonchi or rales. Abdominal: General: Abdomen is flat. Bowel sounds are normal. Palpations: Abdomen is soft. Tenderness: There is no abdominal tenderness. There is no guarding or rebound. Musculoskeletal: General: Normal range of motion. Cervical back: Normal range of motion and neck supple. Right lower leg: No edema. Left lower leg: No edema. Comments: Lumbar spine with well-healed surgical scar; there is [id number] tenderness to palpation in the lumbar paraspinals bilat; straight leg raise positive mostly on the right Skin: General: Skin is warm. Neurological: General: No focal deficit present. Mental Status: She is alert and oriented to person, place, and time. Psychiatric: Mood and Affect: Mood normal. Behavior: Behavior normal. Thought Content: Thought content normal. Judgment: Judgment normal. I have reviewed most recent labs BMP results Recent Labs Units 12/15/23 1313 11/20/23 1545 11/03/23 1440 SODIUM - [facility] mmol/L 140 142 140 POTASSIUM - [facility] mmol/L 4.1 3.8 4.1 CHLORIDE - [facility] mmol/L 100 102 101 CO2 - [facility] mmol/L 27 32 28 CREATININE - [facility] mg/dL 0.9 0.8 0.9 BUN - [facility] mg/dL 17 7 11 Lipid panel results Recent Labs Units 12/22/22 1338 CHOLESTEROL - [facility] mg/dL 191 HDL CHOLESTEROL - [facility] mg/dL 48* TRIGLYCERIDES - [facility] mg/dL 237* CBC results Recent Labs Units 12/15/23 1313 11/20/23 1545 11/03/23 1440 WBC K/uL 3.45* 4.40 4.29 HGB g/dL 12.3 12.5 12.6 HCT % 37.7 38.3 38.6 PLT K/uL 174 163 182 HbA1c results Recent Labs Units 08/10/23 1152 12/22/22 1338 HEMOGLOBIN A1C - [facility] % 6.8* 6.3* TSH results Recent Labs Units 09/22/23 1404 08/10/23 1152 TSH - [facility] uIU/mL 1.30 4.17 | 4.27* Vitamin D results No results for input(s): "25OHVITAMIND" in the last 12541 hours. Hepatic panel results Recent Labs Units 12/15/23 1313 11/20/23 1545 11/03/23 1440 PROTEIN - [facility] g/dL 7.0 7.3 7.1 BILIRUBIN, TOTAL - [facility] mg/dL 0.6 0.4 0.5 ALKALINE PHOSPHATASE - [facility] U/L 91 100 86 AST - [facility] U/L 17 19 19 ALT - [facility] U/L 11 14 13 Protein/cr ratio results No results for input(s): "PROCRRATIO" in the last 98449 hours. Assessment and Plan Preop examination EKG today showed NSR and again with nonspecific ST abnormality, overall unchanged compared to previous EKG. She denies any significant symptoms from cardiac standpoint, although admits her functionalcapacity is limited because of her chronic low back pain. She does have evidence of at least moderate coronary artery calcifications on last CT scan from 11/2023. Has never been evaluated by Cardiology. Requested lab work obtained by [facility] yesterday; her most recent lab work has overall been stable. Her blood pressure is elevated today and has been elevated the past few office visits. Addinghydrochlorothiazide. We discussed her surgical risk. At worst case scenario if she does have coronary artery disease, her risk would be consider class 1 in 3.9% based on the revised cardiac risk index. We discussed this risk in detail. She voiced understanding and is comfortable being cleared as she is now. Cleared forsurgery next week. - EKG; Future - CBC WITH WBC DIFFERENTIAL; Future - COMPREHENSIVE METABOLIC PANEL; Future - HEMOGLOBIN A1C; Future Chronic bilateral low back pain, unspecified whether sciatica present History of pulmonary embolism No longer on anticoagulant per corn chip maker's instruction. - EKG; Future - CBC WITH WBC DIFFERENTIAL; Future - COMPREHENSIVE METABOLIC PANEL; Future - HEMOGLOBIN A1C; Future Type 2 diabetes mellitus with hemoglobin A1c goal of less than 7.0% ([facility]) - EKG; Future - CBC WITH WBC DIFFERENTIAL; Future - COMPREHENSIVE METABOLIC PANEL; Future - HEMOGLOBIN A1C; Future Coronary artery calcification - EKG; Future - CBC WITH WBC DIFFERENTIAL; Future - COMPREHENSIVE METABOLIC PANEL; Future - HEMOGLOBIN A1C; Future Essential hypertension with goal blood pressure less than 130/80 Adding HCTZ. Advised she start checking blood pressure at home. - EKG; Future - CBC WITH WBC DIFFERENTIAL; Future - COMPREHENSIVE METABOLIC PANEL; Future - HEMOGLOBIN A1C; Future - hydroCHLOROthiazide 12.5 MG Oral Capsule; Take 1 Capsule by mouth in the morning. BHAVIN (obstructive sleep apnea) - EKG; Future - CBC WITH WBC DIFFERENTIAL; Future - COMPREHENSIVE METABOLIC PANEL; Future - HEMOGLOBIN A1C; Future Acquired hypothyroidism Family history of bleeding or clotting disorder Risk and functional assessment Special screening for malignant neoplasms, colon - COLONOSCOPY, GI REFERRAL OP Wrap-Up Follow Up: Return if symptoms worsen or fail to improve, for As scheduled with PCP. | For: As scheduled with PCP | Check-out note: Please request labs from [facility] completed 02/06/24. Time: I spent a total of 20-29 minutes (exact time 28 mins) on the date of service in preparation, delivery, and documentation of the care provided to Shelley Nelson excluding any time spent in the performance of separately billed services. * Yesenia Robert LPN - 02/07/2024 10:50 AM EDT Fall Risk Plan of Care Documentation: - Current medications reconciled Patient encouraged to: - Exercise - Provide education materials for Core strengthening - Utilize assistive/adaptive devices - Provide education materials - Avoid multifocal lenses when walking - Avoid hazards in home - Provide education materials - Maintain a regular toileting schedule Yesenia Robert LPN 02/07/2024 documented in this encounter Nursing Notes * Yesenia Robert LPN - 02/07/2024 10:46 AM EDT Chief Complaint Patient presents with pre-op exam [facility] - Back surgery. 02/12 documented in this encounter Plan of Treatment Upcoming Encounters Date Type Department Care Team (Late st Contact Info) Description 04/10/2024 10:00 AM EDT Office [address] Rheumatology, [address] [phone] Jonny Guzman PA-C [address] [place] [id number] 06/18/2024 6:00 PM EST Office Visit Family [facility], [address] [place] [phone] Reina Cross CRNP [address] [phone] 08/16/2024 1:50 PM EST Nurse Only Ancillary 1st Floor, [address] [phone] [place], Annual [facility]ness [address] [place] [address] 08/21/2024 2:45 PM EST Office Visit Ophthalmology, [place] [address] [id number] Juan Childers MD [address] [id number] Scheduled Orders Name Type Priority Associated Diagnoses Orde r Schedule EKG EKG Routine Preop examination History of pulmonary embolism Type 2 diabetes mellitus with hemoglobin A1c goal of less than 7.0% (HCC) Coronary artery calcification Essential hypertension with goal blood pressure less than 130/80 BHAVIN (obstructive sleep apnea) Expected: 02/07/2024 (Approximate), Expires: 03/09/2025 CBC WITH WBC DIFFERENTIAL Lab Routine Preop examination History of pulmonary embolism Type 2 diabetes mellitus with hemoglobin A1c goal of less than 7.0% (HCC) Coronary artery calcification Essential hypertension with goal blood pressure less than 130/80 BHAVIN (obstructive sleep apnea) Expected: 02/07/2024 (Approximate), Expires: 02/06/2025 COMPREHENSIVE METABOLIC PANEL Lab Routine Preop examination History of pulmonary embolism Type 2 diabetes mellitus with hemoglobin A1c goal of less than 7.0% (HCC) Coronary artery calcification Essential hypertension with goal blood pressure less than 130/80 BHAVIN (obstructive sleep apnea) Expected: 02/07/2024 (Approximate), Expires: 02/06/2025 HEMOGLOBIN A1C Lab Routine Preop examination History of pulmonary embolism Type 2 diabetes mellitus with hemoglobin A1c goal of less than 7.0% (HCC) Coronary artery calcification Essential hypertension with goal blood pressure less than 130/80 BHAVIN (obstructive sleep apnea) Expected: 02/07/2024 (Approximate), Expires: 02/06/2025 Scheduled Procedures Name Priority Associated Diagnoses Date/Ti me COLONOSCOPY FLEXIBLE PROXIMAL DIAGNOSTIC Recall History of colon polyps Scheduled Referrals Name Type Priority Associated Diagnoses Orde r Schedule COLONOSCOPY, GI REFERRAL OP Referral Within 30 days (routine) Special screening for malignant neoplasms, colon Ordered: 02/07/2024 Health Maintenance Due Date Last Done Comments Cologuard 1997 Sigmoidoscopy 1997 Fecal Occult Blood Test 08/25/2004 08/25/2003 Colonoscopy 03/08/2021 03/08/2018, 02/15, 10/30/2013, Additional history exists Colorectal Cancer Screening 03/08/2021 COVID-19 Vaccine ( season) 2023 08/04/2021, 11/20/2020, 10/28/2020 Kay's Esophagus Surveilance 09/22/2023 09/21/2020, 09/21/2020, 03/08/2018, Additional history exists Diabetic Eye Exam 12/30/2023 12/29/2022, , 10/18/2021, Additional history exists HbA1c 02/08/2024 08/10/2023, 060 02/2023, 10/18/2021, Additional history exists Depression Monitoring [...] 06/24/2021, Additional history exists GFR 12/14/2024 12/15/2023, 050 12/2023, 11/03/2023, Additional history exists DTaP,Tdap,and Td [...] this encounter Medical Devices Implanted Type Area Continuous 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 Lens 19.5 [id number] - [id number] Implanted:Qty : 1 on 12/25/2015 by Juan Childers MD at OR [facility] Left: Eye REESE : SURGICAL 01/13/2017 [id number] / / Patch Sm Vent Hernia [id number] - [id number] Implanted:Qty : 1 on 04/14/2016 by Linda Peña DO at OR [facility] N/A: Abdomen CR BARD : DAVOL 11/11/2018 [id number] / / [id number] Lens 20.0 [id number] - [id number] - [id number] Implanted:Qty : 1 on 06/29/2018 by Juan Childers MD at OR [facility] Right: Eye REESE : SURGICAL 12/14/2021 [id number] / [id number] / documented as of this encounter Visit Diagnoses Diagnosis Preop examination- Primary Preoperative examination, unspecified Chronic bilateral low back pain, unspecified whether sciatica present History of pulmonary embolism Personal history of pulmonary embolism Type 2 diabetes mellitus with hemoglobin A1c goal of less than 7.0% (HCC) Coronary artery calcification Coronary atherosclerosis of unspecified type of vessel, [place] or graft Essential hypertension with goal blood pressure less than 130/80 BHAVIN (obstructive sleep apnea) Obstructive sleep apnea (adult) (pediatric) Acquired hypothyroidism Unspecified hypothyroidism Family history of bleeding or clotting disorder Family history of other blood disorders Risk and functional assessment Screening for unspecified condition Special screening for malignant neoplasms, colon documented in this encounter Advance Directives * No Code [...]
[2024-02-13] MEDS ORDERED: fentaNYL citrate PF 100 MCG/2 ML VIAL ONE ×2 (07:05→08:30)
[2024-02-13] MEDS ORDERED: ONDANSETRON INJ 2 MG/ML 2 ML VIAL ONE (07:05)
[2024-02-13] MEDS ORDERED: GLYCOPYRROLATE 0.2 MG/ML VIAL ONE (07:05)
[2024-02-13] MEDS ORDERED: DEXAMETHASONE SOD INJ 4 MG/ML VIAL ONE (07:05)
[2024-02-13] MEDS ORDERED: LIDOCAINE 2% 2 ML VIAL/AMP(20MG/ML) INFIL ONE (07:05)
[2024-02-13] MEDS ORDERED: ROCURONIUM BROMIDE 10 MG/ML 5 ML VIAL IV ONE (07:05)
[2024-02-13] MEDS ORDERED: PROPOFOL IV EMULSION 10 MG/ML 20 ML VIAL IV ONE (07:05)
[2024-02-13] MEDS: LR 15ML/HR IV SCH (07:07)
[2024-02-13] MEDS: GABAPENTIN 300 MG CAP PO SCH (07:10)
[2024-02-13] MEDS: LR 60ML/HR IV SCH (07:10)
[2024-02-13] MEDS: CeleBREX 200 MG CAP PO SCH (07:10)
[2024-02-13] MEDS ORDERED: SUGAMMADEX SODIUM 200 MG/2 ML VIAL IV ONE ×2 (07:11→10:41)
[2024-02-13] MEDS ORDERED: DexMEDEtomidine HCL IV 100 MCG/ML VIAL IV ONE (07:13)
[2024-02-13] MEDS ORDERED: ATROPINE SULFATE 0.1 MG/ML 10ML SYR IV PRN (07:18)
[2024-02-13] MEDS ORDERED: HYDROmorphone INJ 1 MG/ML SYRINGE IV PRN ×2 (07:18→11:30)
[2024-02-13] MEDS ORDERED: LABETALOL HCL IV 5 MG/ML 20ML IV PRN (07:18)
[2024-02-13] MEDS ORDERED: DROPERIDOL 5 MG/2 ML VIAL IV PRN (07:18)
--- NOTE | 2024-02-13 07:37 | History & Physical Bridge Note ---
Date of Service February 13, 2024 History & Physical Bridge Note I have examined the patient, reviewed the History & Physical and in the interval since the performance of the History & Physical I have noted the following changes of clinical significance: no changes noted
--- NOTE | 2024-02-13 07:39 | History & Physical Report ---
Date of Service February 13, 2024 Assessment & Plan (1) Neurogenic claudication due to lumbar spinal stenosis: Plan: L4 hardware removal, L2-3 decompression, L3-L4 revision decompression L2-L4 fusion History of Present Illness Chief Complaint: Back and bilateral leg pain Primary Care Provider: ELVIRA Mancia This is a 73-year-old female presents with chronic persistent back and bilateral leg pain after failing course of nonoperative care is here for surgical invention. Allergies Allergy/AdvReac Type Severity Reaction Status Date / Time alprazolam AdvReac Mild Hallucinati Verified 02/13/24 06:47 ons baclofen AdvReac Mild Nausea Verified 02/13/24 06:47 ibuprofen AdvReac Mild Nausea Verified 02/13/24 06:47 lorazepam [From Ativan] AdvReac Mild Nausea Verified 02/13/24 06:47 Home Medications Medication Instructions Recorded Confirmed Type albuterol sulfate 90 mcg/actuation 2 puffs inhalation Q4H PRN 01/02/19 02/13/24 Rx aerosol inhaler shortness of breath or wheezing #18 grams lidocaine 5 % topical ointment See Rx Instructions topical TID 04/23/19 02/13/24 History PRN Pain blood sugar diagnostic (OneTouch #100 ea 04/24/19 04/24/19 Rx Ultra Blue Test Strip) blood-glucose meter (OneTouch #1 ea 04/24/19 04/24/19 Rx Ultra2 Meter kit) lancets 33 gauge (OneTouch Delica #100 ea 04/24/19 04/24/19 Rx Lancets) losartan 100 1 tab PO QPM 05/28/19 02/13/24 History mg-hydrochlorothiazide 25 mg tablet metoprolol succinate 50 mg 75 mg PO QAM 05/28/19 02/13/24 History tablet,extended release 24 hr (Toprol XL) trazodone 50 mg tablet 50 - 100 mg (1 - 2 x 50 mg) PO HS 05/29/19 02/13/24 Rx PRN sleep #60 tabs atorvastatin 40 mg tablet 40 mg PO HS 01/30/24 02/13/24 History folic acid 5 mg capsule 5 mg PO QAM 01/30/24 02/13/24 History gabapentin 600 mg tablet 600 mg PO QID PRN Pain 01/30/24 02/13/24 History levothyroxine 25 mcg tablet 25 mcg PO QAM 01/30/24 02/13/24 History (Levoxyl) mometasone 50 mcg/actuation nasal 2 sprays intranasal DAILY PRN 01/30/24 02/13/24 History spray allergies omeprazole 40 mg capsule,delayed 40 mg PO QAM 01/30/24 02/13/24 History release tizanidine 4 mg tablet 4 mg PO TID PRN muscle spasms 01/30/24 02/13/24 History venlafaxine 150 mg 150 mg PO QAM 01/30/24 02/13/24 History capsule,extended release 24 hr (Effexor XR) hydrochlorothiazide 12.5 mg capsule 12.5 mg PO DAILY 02/13/24 02/13/24 History Past Med/Surg History Problem List (Updated 02/13/24 @ 07:38 by Demarcus Sapp DO) Neurogenic claudication due to lumbar spinal stenosis Encounter for pre-operative examination Lumbar radiculopathy, acute Kay's esophagus (Chronic) Diabetes mellitus (Chronic) HTN (hypertension) (Chronic) IBS (irritable bowel syndrome) (Chronic) Lumbar disc disease (Chronic) Osteoarthritis of both knees (Chronic) Osteoarthritis of wrist (Chronic) Vitamin B12 deficiency (Chronic) Insomnia Gastroesophageal reflux Sleep apnea Vitamin D deficiency Hyperlipidemia COPD (chronic obstructive pulmonary disease) Benign essential hypertension Medical History (Updated 02/13/24 @ 07:38 by Demarcus Sapp DO) 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 Heme/onc Pulmonary embolism (~07/2023) Hx of irritable bowel syndrome Hiatal hernia Lumbar disc disease Hyperlipidemia Hypothyroidism Diabetes mellitus Diet controlled Benign essential hypertension Sleep apnea No device Asthma Hx of colonic polyps Barretts esophagus COPD (chronic obstructive pulmonary disease) Patient states she was told by pulmonary that she had asthma (not COPD) Per remote [facility] pulmonary records in 2018, possible patient may only have asthma based on spirometry findings, COPD diagnosis still listed in [facility] records since GERD (gastroesophageal reflux disease) Surgical History History of postoperative nausea and vomiting Hx of colonoscopy with polypectomy Hx of hernia repair abdominal Hx of hand surgery Multiple R/L dietitian chief finger releases 05/08 - left thumb History of bilateral carpal tunnel release Hx of lumbosacral spine surgery x3 L4-L5 Hx of hysterectomy Hx of cholecystectomy Hx of tonsillectomy (1961) x2 Social History (Updated 01/04/19 @ 18:46 by Jose Angel Pineda MD) Smoking Status: Former smoker Age Started Using Tobacco: 15; Age Quit Using Tobacco: 45; packs per day: 1.5; Cigarettes Per Day: 30; Smoking End Date: quit 1994 (1.5 ppd); Second Hand Exposure: No; Do You Dip or Chew Tobacco: No; Tobacco Cessation Education Requested by Patient: No Hx Alcohol Use: Yes Hx Substance Use: No Preferred Language: Italian Communication Ability: Effective Communication Ability Comment: Good Visual Impairment: No Limitations Hearing Ability: Normal Film Archivist Required: No Beliefs That Will Affect Care: None Current Living Situation: Family Other Information That Helps Us Care for You: No Feels Safe at Home: Yes Safety Concerns: Feels Safe At This Time Dental Care, Regularly: Yes Physical Activity Frequency: Does not Exercise Seatbelt Use: always Sunscreen Use: Yes Assistive Devices: Denture - Upper and Glasses Physical Exam Physical Exam: Patient is alert and oriented heart regular rhythm Lungs clear Results & Data Results & Data Vital Signs (Past 12 Hours) Vital Signs Temp Pulse Resp BP Pulse Ox O2 Del Method 02/13/24 06:52 37.1 C 76 18 181/90 H 96 Room Air
[2024-02-13] MEDS: ceFAZolin 2000MG 2,000 MG/15 ML SYR IV SCH ×2 (07:49→16:37)
[2024-02-13] MEDS ORDERED: diphenhydrAMINE 50 MG/ML VIAL ONE (08:12)
[2024-02-13] MEDS: BUPIVACAINE/EPINEPHRINE 0.25% 1:200,000 30 ML VIAL ONE (08:20)
[2024-02-13] MEDS: ceFAZolin 330 MG/ML 1 GM VIAL ONE (08:23)
[2024-02-13] MEDS: FLOSEAL HEMOSTATIC MATRIX 10ML TOP ONE (09:35)
--- NOTE | 2024-02-13 09:45 | Operative Report ---
Post Operative Report Pre & Post Diagnosis Operation Date: 02/13/24 07:45 Pre-Op Diagnosis: Spinal Stenosis Lumbar Region with Neurogenic Claudication Post-Op Diagnosis: Spinal Stenosis Lumbar Region with Neurogenic Claudication I identified the patient and participated in the time-out.: Yes Procedure Operation Date: 02/13/24 07:45 Actual Procedures #1 removal of posterior instrumentation L4-S1. #2 exploration of fusion L4-S1. #3 revision decompression with bilateral medial facetectomies and foraminotomies L2-L3 L3-L4 per #4 posterior spinal fusion L2-L4 per #5 placement posterior instrumentation L2-L5. #6 interbody fusion L2-L3. #7 placement of Spira 10 x 26 mm cage at L2-L3. #8 placement locally harvested morselized autograft and posterior gutters. #9 placement of infuse collagen sponge, with Koros in the posterior lateral gutters and Morpheus bone graft in the interbody space. Surgeon Demarcus Sapp, DO Graphite Mill Operator Susan Corey Estimated Blood Loss 300 Findings See Below The patient is 5 foot 5 weighing over 90 kg with a BMI in excess of 33. Patient's body habitus did contribute to significant technical difficulty with positioning exposure and the procedure itself at least 50% increased operative time. Specimens None Indications This is a 73-year-old female presents problems diagnosis of failed course of nonoperative care she is here for surgical invention. Description of Procedure Patient was met with identified informed consent obtained. Patient was then taken to the operative suite underwent ablation placed in a prone position on the Jaret table on top of the Rambo frame. All bony prominences well-padded eyes inspected to ensure no external pressure placed upon them. This point the lumbar spine was prepped and draped in normal sterile fashion. Sharp dissection with the assistance of Bovie cautery was performed down to and exposing the remaining lamina of L2 and L3 as well as instrumentation L4-L5 and S1 levels bilaterally. And then proceed remove the brandon and screws at L4-L5 and S1 b ilaterally. I did retain the S1 pedicle screws to avoid excessive blood loss. I then performed revision complete laminectomy with bilateral medial facetectomies of L3 and L2 addressing severe spinal stenosis. Pedicle screws were then placed in the L to L3-L4-L5 bilaterally with assistance of fluoroscopy and the appropriately sized brandon placed. By way of a transforaminal approach on the right a complete discectomy of L2-L3 was performed endplates guided to subcortical bleeding bone and a 10 x 26 mm spiral cage filled with Morpheus bone graft tapped in position. The rods were then locked in final position bilaterally for the transverse processes of L2-L3-L4 burred to subcortical bleeding bone. Infuse collagen sponge, with Koros and local autograft placed in the posterior gutters. 15 round DENVER inserted. The incision was then closed with 1 Vicryl in the fascia 2-0 Vicryl subcutaneously and 4 Monocryl for final skin closure. Steri-Strips sterile dressing placed. Patient awakened taken to PACU in stable condition. Please note spinal cord monitoring was utilized at the procedure no changes noted. Susan Corey was present at the entire procedure involved in patient positioning complex portions of the surgery and final skin closure. Im ordering 20 grams of Triple [place] Collagen Powder (Biomimedica [id number]) to treat an incision wound that was caused by a spine procedure. The incision is approximately 2 cm(W) x 4 cm(L) into the joint (D) in size and is a full thickness wound. Triple [place] collagen comes in 1 gram packets so 20 packets were ordered. Given the size of the wound, with light to moderate exudate I chose to order a 20 day supply. The patient will be provided instructions for proper application of the collagen wound kit. The patient will be asked to apply the collagen powder daily and then cover it with sterile dressings dispensed. Collagen was selected as I expect the collagen to attract monocytes and fibroblasts, act as a sacrificial substrate for MMPs, and ultimately proved a matrix for tissue and vessel growth. The collagen will act as a primary dressing in this scenario. It is medically necessary for proper healing of these wounds to improve bioavailability and contact with each wound surface, this is also to help prevent infection of wounds and promote healing ultimately leading to a better healing outcome and limit the risk of infection. I attest to the content of the Intraoperative Record and any orders documented therein. Any exceptions are noted below.
--- NOTE | 2024-02-13 11:05 | Fluoroscopy Report ---
FL lumbar spine 2-3V CLINICAL HISTORY: L2-L3 DECOMPRESSION, L2-L4 FUSION COMPARISON STUDY: None FLUOROSCOPY TIME: 22.8 seconds FLUOROSCOPY IMAGES: 4 EXPOSURE DOSE: 12.09 mGy FINDINGS: Posterior interbody brandon and screw fusion hardware with laminectomy noted at what appears to be the L2-S1 levels with L2-L3 and L5-S1 discectomy. Hardware appears intact. IMPRESSION: Fluoroscopic assistance as above. ACT 112: Negative or not required by law. Electronically signed by: Pantera Ansari M.D. 02/13/2024 11:04 AM
[2024-02-13] MEDS ORDERED: diphenhydrAMINE Capsule 25 MG CAP PO PRN (11:30)
[2024-02-13] MEDS ORDERED: ALBUTEROL HFA 8 GM INHALER INH PRN (11:30)
[2024-02-13] MEDS ORDERED: METOCLOPRAMIDE HCL INJ 5 MG/ML 2 ML VIAL IV PRN (11:30)
[2024-02-13] MEDS ORDERED: FAMOTIDINE 20 MG TAB PO PRN (11:30)
[2024-02-13] MEDS ORDERED: SOD PHOSPHATE/SOD BIPHOSPHATE ENEMA 132 ML BTL PR PRN (11:30)
[2024-02-13] MEDS ORDERED: tiZANidine HCL 4 MG TABLET PO PRN (11:30)
[2024-02-13] MEDS ORDERED: NALOXONE HCL 0.4 MG/1 ML VIAL/CARP IV PRN (11:30)
[2024-02-13] MEDS ORDERED: ACETAMINOPHEN 500 MG TAB PO PRN (11:30)
[2024-02-13] MEDS ORDERED: ONDANSETRON INJ 2 MG/ML 2 ML VIAL IV PRN (11:30)
[2024-02-13] MEDS ORDERED: DO NOT ADMINISTER PNEUMOCOCCAL VACCINE PRN (11:30)
[2024-02-13] MEDS ORDERED: ALUMINUM/MAGNESIUM SUSP 30 ML UDC PO PRN (11:30)
[2024-02-13] MEDS ORDERED: MAGNESIUM HYDROXIDE SUSP 30 ML UDC PO PRN (11:30)
[2024-02-13] MEDS ORDERED: ACETAMINOPHEN 1,000 MG/100 ML VIAL IV PRN (11:30)
[2024-02-13] MEDS ORDERED: PROMETHAZINE HCL 12.5 MG in SODIUM CHLORIDE 0.9% 50 ML IV PRN (11:30)
[2024-02-13] MEDS ORDERED: PHARMACY GLYCEMIC MGMT CONSULT PRN (11:30)
[2024-02-13] MEDS ORDERED: ONDANSETRON 4 MG OD TAB PO PRN (11:30)
[2024-02-13] MEDS ORDERED: traMADol HCL 50 MG TABLET PO PRN (11:30)
[2024-02-13] MEDS ORDERED: GABAPENTIN 600 MG TAB PO PRN (11:30)
[2024-02-13] MEDS ORDERED: bisacodyL 10 MG SUPP PR PRN (11:30)
[2024-02-13] MEDS ORDERED: hydrOXYzine HCl 25 MG TAB PO PRN (11:30)
[2024-02-13] MEDS ORDERED: DO NOT ADMINISTER FLU VACCINE PRN (11:30)
[2024-02-13] MEDS: HYDROmorphone INJ 0.5 MG/0.5 ML SYR IV PRN (11:47)
[2024-02-13] MEDS ORDERED: FLUTICASONE PROPIONATE NA SPR 16 GM BTL PRN (11:49)
[2024-02-13] MEDS ORDERED: GLUCAGON FOR INJ 1 MG VIAL IM PRN (12:30)
[2024-02-13] MEDS ORDERED: GLUCOSE 10 TAB/TUBE PO PRN (12:30)
[2024-02-13] MEDS ORDERED: GLUCOSE 40% GEL 15 GM TUBE PO PRN (12:30)
[2024-02-13] MEDS ORDERED: DEXTROSE 50% 50 ML SYRINGE IV PRN (12:30)
[2024-02-13] MEDS ORDERED: CARBOHYDRATES FOR HYPOGLYCEMIA PO PRN (12:30)
--- NOTE | 2024-02-13 12:31 | Pharmacy Report ---
Pharmacy Glycemic Short Note 2 - Date of Service February 13, 2024 - Glycemic Short BSG Results (Last 24 hours): 02/13/24 02/13/24 02/13/24 06:44 10:04 11:32 POC Glucose 112 H 151 H 139 H OUTPATIENT ANTIDIABETIC REGIMEN: * N/A * HbA1c = 6.1% on 02/06/24 ASSESSMENT: * 73 y/o F admitted for spinal surgery today. Patient does not have a history of diabetes and was not on any anti-diabetic meds at home. * BSGs have been well controlled since admission. * Patient did receive IV Dexamethasone 8 mg in OR today and IV Dex 6 mg is continuing daily x 3 days. * Will add basal insulin on a scale at dinner time based on BSG in case it starts to trend up due to steroid effects. * Novolog started with loose parameters based on stress between 1 and 2. PLAN FOR INPATIENT GLYCEMIC CONTROL: * Basal insulin * Lantus 0/8 units SQ at dinner - 0 units if BSG 180 mg/dl or less - 8 units if BSG above 180 mg/dl * Bolus insulin * NovoLog per scale ACHS or Q6hrs while NPO * Goal Range: Low 110 mg/dL - High 140 mg/dL * Correction Factor: 30 mg/dL/unit * Nutritional / Prandial insulin per carb ratio of 1 unit per 10 grams CHO consumed
--- NOTE | 2024-02-13 12:44 | Anesthesiology Progress Note ---
Date of Service February 13, 2024 Anesthesia Post Procedure Vital Signs Vital Signs: Temp Pulse Pulse Resp BP BP Pulse Ox 02/13/24 12:10 36.6 C 71 18 131/75 94 02/13/24 11:49 16 169/91 H 96 02/13/24 11:10 02/13/24 11:10 36.6 C 72 16 155/75 H 97 02/13/24 11:00 72 12 135/68 99 02/13/24 10:50 36.5 C 75 13 161/83 H 98 02/13/24 10:40 75 12 153/91 H 99 02/13/24 10:30 74 12 159/80 H 97 02/13/24 10:20 71 11 L 120/73 98 02/13/24 10:10 68 11 L 132/69 97 02/13/24 10:00 36.1 C L 67 11 L 139/68 94 02/13/24 06:52 37.1 C 76 18 181/90 H 96 O2 Del Method O2 Flow Rate 02/13/24 12:10 Nasal Cannula 2 02/13/24 11:49 Nasal Cannula 2 02/13/24 11:10 Nasal Cannula 2 02/13/24 11:10 Nasal Cannula 2 02/13/24 11:00 Nasal Cannula 2 02/13/24 10:50 Nasal Cannula 2 02/13/24 10:40 Nasal Cannula 2 02/13/24 10:30 Nasal Cannula 2 02/13/24 10:20 Oxymask 7 02/13/24 10:10 Oxymask 11 02/13/24 10:00 Oxymask 11 02/13/24 06:52 Room Air Pain Intensity Right Lower Back: Pain Intensity: 5 Back: Pain Intensity: 8 Transfer of Care Handoff Completed per policy Notes Mental Status: alert / awake / arousable Patient Amnestic to Procedure: Yes Nausea / Vomiting: adequately controlled Pain: adequately controlled Airway Patency, RR, SpO2: stable & adequate BP & HR: stable & adequate Hydration State: stable & adequate Anesthetic Complications: no major complications apparent
--- NOTE | 2024-02-13 12:55 | Hospitalist Consultation ---
Date of Consultation February 13, 2024 Assessment & Plan (1) S/P spinal surgery: This is a 73yo F with a PMH of DM II, history of provoked PE in Jul 2023 no longer on anticoagulation, HTN, BHAVIN, COPD and other medical problems listed below who is POD#0 s/p removal of posterior instrumentation L4-S1, exploration of fusion L4-S1, revision decompression with bilateral medial facetectomies and foraminotomies L2-L3 L3-L4 and posterior spinal fusion L2-L4 by Dr. Sapp. POD#0 s/p removal of posterior instrumentation L4-S1, exploration of fusion L4- S1, revision decompression with bilateral medial facetectomies and foraminotomies L2-L3 L3-L4 and posterior spinal fusion L2-L4 by Dr. Sapp Per ortho for pain control, wound care, anticoagulation and activities Monitor H&H (pre-op hgb 11.4, EBL 300ml). Repeat CBC in AM Continue incentive spirometry, PT/OT when appropriate (2) DM (diabetes mellitus), type 2: A1c 6.1 on 02/06/24 Not on home meds SSI while in-patient certified breastfeeding educator consult for recs BSG AC HS (3) HTN (hypertension): BP normotensive Hold hctz in AM, continue losartan component as well as Toprol (4) Kay's esophagus: Continue PPI (5) COPD (chronic obstructive pulmonary disease): At baseline. Continue albuterol inhaler PRN (6) Hypothyroidism: Continue levothyroxine (7) Pulmonary embolism: (8) Elevated homocysteine: H/o PE in July thought to have been provoked by covid. Followed with heme onc and underwent hypercoag work up which was only positive for homocysteine. No longer on anticoagulation as per direction from heme onc (9) Hyperlipidemia: Continue statin (10) Sleep apnea: Does not use CPAP DVT Ppx: SCDs Code status: FULL PCP: ELVIRA Cross ([facility]) Dispo: Per primary service Patient seen in collaboration with Dr. Bryant. Please see addendum. I spent a total of 60 minutes coordinating, documenting, and providing care for this patient excluding time spent in the performance of separately billed services. Thank you for this consultation. We will follow the patient with you during their hospital stay. You can reach a member of the [facility] Hospitalist Team 24/7 via [employer]. Supervising Physician Co-Signing Physician Notes Patient seen at bedside. She is lying on the bed comfortably; resting. Vital signs are stable. Monitor for signs or symptoms of DVT/PE given her history. Continue other home meds I have reviewed the advanced practitioner's documentation, and I agree with, and take responsibility for the plan of care I spent a total of 15 minutes coordinating, documenting, and providing care for this patient excluding time spent in the performance of separately billed services. All of the aforementioned completed while collaborating with the assigned advanced practitioner for a full treatment plan History of Present Illness Reason for Consultation: postop med mgmt Attending Physician: Demarcus Sapp, DO History of Present Illness This is a 73yo F with a PMH of DM II, history of provoked PE in Jul 2023 no longer on anticoagulation, HTN, BHAVIN, COPD and other medical problems listed below who is POD#0 s/p removal of posterior instrumentation L4-S1, exploration of fusion L4-S1, revision decompression with bilateral medial facetectomies and foraminotomies L2-L3 L3-L4 and posterior spinal fusion L2-L4 by Dr. Sapp. Patient having some surgical site discomfort with extension down left leg, which is similar to previous pain. Otherwise feeling well. No CP, nausea or vomiting post-op. Follows with [facility] in [place] for primary care. Has history of DM II but is not on any medications and admittedly has not made any dietary changes. History of a PE in July thought to have been provoked by covid. Followed with heme onc and underwent hypercoag work up which was only positive for homocysteine. No longer on anticoagulation as per direction from heme onc. No F/C, lightheadedness, SOB, N/V, abd pain, dysuria, diarrhea or constipation. Allergies Allergy/AdvReac Type Severity Reaction Status Date / Time alprazolam AdvReac Mild Hallucinati Verified 02/13/24 06:47 ons baclofen AdvReac Mild Nausea Verified 02/13/24 06:47 ibuprofen AdvReac Mild Nausea Verified 02/13/24 06:47 lorazepam [From Ativan] AdvReac Mild Nausea Verified 02/13/24 06:47 Home Medications Medication Instructions Recorded Confirmed Type albuterol sulfate 90 mcg/actuation 2 puffs inhalation Q4H PRN 01/02/19 02/13/24 Rx aerosol inhaler shortness of breath or wheezing #18 grams lidocaine 5 % topical ointment See Rx Instructions topical TID 04/23/19 02/13/24 History PRN Pain blood sugar diagnostic (OneTouch #100 ea 04/24/19 04/24/19 Rx Ultra Blue Test Strip) blood-glucose meter (OneTouch #1 ea 04/24/19 04/24/19 Rx Ultra2 Meter kit) lancets 33 gauge (OneTouch Delica #100 ea 04/24/19 04/24/19 Rx Lancets) losartan 100 1 tab PO QPM 05/28/19 02/13/24 History mg-hydrochlorothiazide 25 mg tablet metoprolol succinate 50 mg 75 mg PO QAM 05/28/19 02/13/24 History tablet,extended release 24 hr (Toprol XL) trazodone 50 mg tablet 50 - 100 mg (1 - 2 x 50 mg) PO HS 05/29/19 02/13/24 Rx PRN sleep #60 tabs atorvastatin 40 mg tablet 40 mg PO HS 01/30/24 02/13/24 History folic acid 5 mg capsule 5 mg PO QAM 01/30/24 02/13/24 History gabapentin 600 mg tablet 600 mg PO BID PRN Pain 01/30/24 02/13/24 History levothyroxine 25 mcg tablet 25 mcg PO QAM 01/30/24 02/13/24 History (Levoxyl) mometasone 50 mcg/actuation nasal 2 sprays intranasal DAILY PRN 01/30/24 02/13/24 History spray allergies omeprazole 40 mg capsule,delayed 40 mg PO QAM 01/30/24 02/13/24 History release tizanidine 4 mg tablet 4 mg PO TID PRN muscle spasms 01/30/24 02/13/24 History venlafaxine 150 mg 150 mg PO QAM 01/30/24 02/13/24 History capsule,extended release 24 hr (Effexor XR) Patient History Medical History (Updated 02/13/24 @ 14:02 by Lori Soto PA-C) 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 per [facility]/onc Pulmonary embolism (~07/2023) Hx of irritable bowel syndrome Hiatal hernia Lumbar disc disease Hyperlipidemia Hypothyroidism Diabetes mellitus Diet controlled Benign essential hypertension Sleep apnea No device Asthma Hx of colonic polyps Barretts esophagus COPD (chronic obstructive pulmonary disease) Patient states she was told by pulmonary that she had asthma (not COPD) Per remote [facility] pulmonary records in 2018, possible patient may only have asthma based on spirometry findings, COPD diagnosis still listed in [facility] records since GERD (gastroesophageal reflux disease) Surgical History (Updated 02/13/24 @ 14:02 by Lori Soto PA-C) History of postoperative nausea and vomiting Hx of colonoscopy with polypectomy Hx of hernia repair abdominal Hx of hand surgery Multiple R/L support services manager finger releases 05/08 - left thumb History of bilateral carpal tunnel release Hx of lumbosacral spine surgery x3 L4-L5 Hx of hysterectomy Hx of cholecystectomy Hx of tonsillectomy (1961) x2 Family History Other COPD (chronic obstructive pulmonary disease) Diabetes Social History Smoking Status: Former smoker Age Started Using Tobacco: 15; Age Quit Using Tobacco: 45; packs per day: 1.5; Cigarettes Per Day: 30; Smoking End Date: quit 1994 (1.5 ppd); Second Hand Exposure: No; Do You Dip or Chew Tobacco: No; Tobacco Cessation Education Requested by Patient: No Hx Alcohol Use: Yes Alcohol Intake Frequency: 2-4 x/Month Hx Substance Use: No Preferred Language: Yakut Communication Ability: Effective Communication Ability Comment: Good Visual Impairment: No Limitations Hearing Ability: Normal System Manager Required: No Beliefs That Will Affect Care: None Current Living Situation: Family Other Information That Helps Us Care for You: No Feels Safe at Home: Yes Safety Concerns: Feels Safe At This Time Dental Care, Regularly: Yes Physical Activity Frequency: Does not Exercise Seatbelt Use: always Sunscreen Use: Yes Assistive Devices: Denture - Upper and Glasses Review of Systems Review of Systems: At least ten systems reviewed and negative except as noted in the HPI. Physical Exam Physical Exam: General Appearance: WD/WN, vitals as above, NAD, lying bed, pleasant, conversing easily Head: normocephalic, atraumatic Eyes: normal inspection, PERRL, conjunctivae normal, anicteric sclerae ENT: external ear and nose normal, oropharynx normal Neck: normal visual inspection Respiratory: normal respiratory effort, lungs clear to auscultation. No accessory muscle use Cardiovascular: regular rate, rhythm, normal peripheral pulses, no BLE edema Abdomen/GI: normal bowel sounds, soft, nontender, no hepatosplenomegaly Extremities/Musculoskeletal: + spinal dressing c/d/i. DENVER drain visualized. No cyanosis or clubbing, extremities motor strength 5/5 Neurologic: PERRL, CN's II-XI intact bilaterally and moves all extremities Psychiatric: A+Ox3, euthymic affect Skin: no rashes, normal color, warm/dry Results & Data Results & Data Vital Signs (Past 12 Hours) Vital Signs Temp Pulse Pulse Resp BP BP Pulse Ox 02/13/24 12:10 36.6 C 71 18 131/75 94 02/13/24 11:49 16 169/91 H 96 02/13/24 11:10 02/13/24 11:10 36.6 C 72 16 155/75 H 97 02/13/24 11:00 72 12 135/68 99 02/13/24 10:50 36.5 C 75 13 161/83 H 98 02/13/24 10:40 75 12 153/91 H 99 02/13/24 10:30 74 12 159/80 H 97 02/13/24 10:20 71 11 L 120/73 98 02/13/24 10:10 68 11 L 132/69 97 02/13/24 10:00 36.1 C L 67 11 L 139/68 94 02/13/24 06:52 37.1 C 76 18 181/90 H 96 O2 Del Method O2 Flow Rate 02/13/24 12:10 Nasal Cannula 2 02/13/24 11:49 Nasal Cannula 2 02/13/24 11:10 Nasal Cannula 2 02/13/24 11:10 Nasal Cannula 2 02/13/24 11:00 Nasal Cannula 2 02/13/24 10:50 Nasal Cannula 2 02/13/24 10:40 Nasal Cannula 2 02/13/24 10:30 Nasal Cannula 2 02/13/24 10:20 Oxymask 7 02/13/24 10:10 Oxymask 11 02/13/24 10:00 Oxymask 11 02/13/24 06:52 Room Air Diagnostic Findings Lumbar Spine X-Ray 02/13/24 07:00 FL lumbar spine 2-3V CLINICAL HISTORY: L2-L3 DECOMPRESSION, L2-L4 FUSION COMPARISON STUDY: None FLUOROSCOPY TIME: 22.8 seconds FLUOROSCOPY IMAGES: 4 EXPOSURE DOSE: 12.09 mGy FINDINGS: Posterior interbody brandon and screw fusion hardware with laminectomy noted at what appears to be the L2-S1 levels with L2-L3 and L5-S1 discectomy. Hardware appears intact. IMPRESSION: Fluoroscopic assistance as above. ACT 112: Negative or not required by law. Electronically signed by: Pantear Ansari M.D. 02/13/2024 11:04 AM
[2024-02-13] MEDS: INSULIN ASPART PER UNIT CHARGE SC SCH (13:07)
[2024-02-13] MEDS: oxyCODONE HCL IR 5 MG TAB (IMMEDIATE RELEASE) PO PRN (14:07)
[2024-02-13] MEDS: SODIUM CHLORIDE 0.9% 1,000 ML IV SCH (16:37)
[2024-02-13] MEDS: LANTUS PER UNIT CHARGE SC SCH (17:08)
[2024-02-13] MEDS: ATORVASTATIN 40 MG TAB PO SCH (21:03)
[2024-02-13] MEDS: LOSARTAN/HCTZ 50/12.5MG TAB PO SCH (21:04)
[2024-02-13] MEDS: DOCUSATE SODIUM/SENNA 50/8.6MG TAB PO SCH (21:04)
[2024-02-14] MEDS: POLYETHYLENE (MIRALAX) 17 GM PACK PO SCH (05:45)
[2024-02-14] MEDS: LEVOTHYROXINE SODIUM 25 MCG TABLET PO SCH (05:57)
[2024-02-14 06:27] LABS: BUN Creatinine Ratio 15.1 (10-20); Calcium 8.1 mg/dl (8.6-10.3); Creatinine Clr Calc Pharmacy 61.7 ml/min; Est GFR (African American) 71.7 ml/min; Est GFR (Non-African American) 61.8 ml/min; Potassium 4.1 mmol/L (3.5-5.1)
[2024-02-14 06:40] LABS: Basophils # (auto) 0.02 K/uL (0.00-0.20); Basophils % (auto) 0.2 %; Hematocrit (blood only) 28.5 % (37.0-47.0); Hemoglobin 9.1 g/dl (12.0-16.0); Immature Granulocytes # (auto) 0.04 K/uL (0.01-0.20); Immature Granulocytes % (auto) 0.5 %; Lymphocytes # (auto) 1.21 K/uL (1.20-3.40); Lymphocytes % (auto) 14.8 %; Mean Corpuscular Hemoglobin 28.8 pg (25.0-34.0); Mean Corpuscular Hgb Conc 31.9 g/dL (32.0-36.0); Mean Corpuscular Volume 90.2 fL (80.0-100.0); Mean Platelet Volume 11.8 fL (9.4-12.4); Monocytes # (auto) 0.81 K/uL (0.11-0.59); Monocytes % (auto) 9.9 %; Neutrophils % (auto) 74.6 %; Platelet Count 142 K/uL (130-400); RDW Coefficient of Variation 13.2 % (11.5-14.5); Red Blood Count 3.16 M/uL (4.20-5.40); White Blood Count 8.18 K/ul (4.8-10.8)
[2024-02-14] MEDS: VENLAFAXINE HCL XR 150 MG CAPXR PO SCH (08:36)
[2024-02-14] MEDS: METOPROLOL SUCC 25MG EXT REL TAB PO SCH (08:36)
[2024-02-14] MEDS: FOLIC ACID 1 MG TAB PO SCH (08:37)
[2024-02-14] MEDS: LOSARTAN POTASSIUM 50 MG TAB PO SCH (08:37)
[2024-02-14] MEDS: dexAMETHasone 4 MG in SYRINGE 0 ML IV SCH (08:37)
[2024-02-14] MEDS: PANTOprazole 40 MG TAB PO SCH (08:37)
[2024-02-14] MEDS ORDERED: hydroCHLOROthiazide 25 MG TAB PO SCH (09:00)
--- NOTE | 2024-02-14 10:21 | Orthopedic Progress Note ---
Date of Service February 14, 2024 Assessment & Plan (1) Neurogenic claudication due to lumbar spinal stenosis: Plan: We will continue physical therapy monitor DENVER operatively discharge home next few days. Admission and Anticipated Discharge Date Admission Date: February 13, 2024 Subjective Back pain is controlled leg symptoms improved Physical Exam Physical Exam: Patient has some numbness to left anterior thigh. There is good strength testing otherwise. This Results & Data Vital Signs (Past 12 Hours) Vital Signs Temp Pulse Pulse Resp BP Pulse Ox O2 Del Method 02/14/24 08:17 36.4 C L 70 16 130/80 95 Room Air 02/14/24 05:57 36.7 C 69 16 130/75 95 Room Air 02/14/24 00:55 36.8 C 79 16 123/65 95 Room Air Queries Orthopedic Spine Obesity: Yes
--- NOTE | 2024-02-14 11:33 | Hospitalist Progress Note ---
Date of Service February 14, 2024 Assessment & Plan (1) S/P spinal surgery: Plan: This is a 73yo F with a PMH of DM II, history of provoked PE in Jul 2023 no longer on anticoagulation, HTN, BHAVIN, COPD and other medical problems listed below who is POD#0 s/p removal of posterior instrumentation L4-S1, exploration of fusion L4-S1, revision decompression with bilateral medial facetectomies and foraminotomies L2-L3 L3-L4 and posterior spinal fusion L2-L4 by Dr. Sapp. POD#1 s/p removal of posterior instrumentation L4-S1, exploration of fusion L4- S1, revision decompression with bilateral medial facetectomies and foraminotomies L2-L3 L3-L4 and posterior spinal fusion L2-L4 by Dr. Sapp Per ortho for pain control, wound care, anticoagulation and activities Monitor H&H (pre-op hgb 11.4, EBL 300ml). Repeat CBC in AM Continue incentive spirometry, PT/OT when appropriate (2) Acute blood loss as cause of postoperative anemia: Plan: pre op hgb 11.4 post op 9.1 in setting of expected surgical blood loss and ongoing loss from SUSAN drain as well as dilution (3) DM (diabetes mellitus), type 2: Plan: A1c 6.1 on 02/06/24 Not on home meds SSI while in-patient pharmacy on board, appreciate recs BSG AC HS (4) HTN (hypertension): Plan: BP normotensive continue to Hold hctz, continue losartan component as well as Toprol (5) Kay's esophagus: Plan: Continue PPI (6) COPD (chronic obstructive pulmonary disease): Plan: At baseline. Continue albuterol inhaler PRN (7) Hypothyroidism: Plan: Continue levothyroxine (8) Pulmonary embolism: (9) Elevated homocysteine: Plan: H/o PE in July thought to have been provoked by covid. Followed with heme onc and underwent hypercoag work up which was only positive for homocysteine. No longer on anticoagulation as per direction from heme onc (10) Hyperlipidemia: Plan: Continue statin (11) Sleep apnea: Plan: Does not use CPAP DVT Ppx: SCDs Code status: FULL PCP: ELVIRA Cross ([facility]) Dispo: Per primary service I spent a total of 45 minutes coordinating, documenting, and providing care for this patient excluding time spent in the performance of separately billed services. Thank you for this consultation. We will follow the patient with you during their hospital stay. You can reach a member of the [facility] Hospitalist Team 06/02 via Blinkit. Admission and Anticipated Discharge Date Admission Date: February 13, 2024 Supervising Physician Co-Signing Physician Notes I have seen and discussed the case with the collaborating advanced practitioner. I agree with the above PN I have reviewed and confirmed the patients medical history, the findings on physical examination, and the patients diagnosis and treatment plan with Ronal WESTFALL and agree with the information documented. I have reviewed the advanced practitioner's documentation, and I agree with, and take responsibility for the plan of care Subjective Pt was seen and examined in room 316. F/U Lumbar d/f. She complains of back pain this morning. She tried to sit up and eat breakfast and her muscles were pulling so she had to lay down. She has catheter in place. She denies f/c/s, chest pain, sob, n/v/d. +Flatus. Review of Systems Review of Systems: All systems reviewed & are unremarkable except as noted in HPI & below Physical Exam Physical Exam: Gen: WD/WN, NAD, A&O x3 HEENT: Normocephalic, atraumatic, conjunctivae moist, sclerae anicteric, mucous membranes moist. Lung: Clear to Auscultation bilaterally, no wheezes/rales/rhonchi Heart: Regular rate, regular rhythm, no murmurs, rubs, or gallops Abdomen: Soft, NT, ND +BS x 4 Extremities: No edema, lumbar dressing CDI susan drain with serosang drainage Skin: Warm, no rash, negative turgor. Results & Data Results & Data Vital Signs (Past 12 Hours) Vital Signs Temp Pulse Pulse Resp BP Pulse Ox O2 Del Method 02/14/24 08:17 36.4 C L 70 16 130/80 95 Room Air 02/14/24 05:57 36.7 C 69 16 130/75 95 Room Air 02/14/24 00:55 36.8 C 79 16 123/65 95 Room Air Laboratory Results I have independently reviewed and interpreted patient's cbc, bmp.
[2024-02-15 07:01] LABS: Hematocrit (blood only) 28.5 % (37.0-47.0); Hemoglobin 9.1 g/dl (12.0-16.0); Mean Corpuscular Hemoglobin 28.7 pg (25.0-34.0); Mean Corpuscular Hgb Conc 31.9 g/dL (32.0-36.0); Mean Corpuscular Volume 89.9 fL (80.0-100.0); Mean Platelet Volume 12.1 fL (9.4-12.4); Platelet Count 141 K/uL (130-400); RDW Coefficient of Variation 13.1 % (11.5-14.5); RDW Standard Deviation 43.3 fL (36.4-46.3); Red Blood Count 3.17 M/uL (4.20-5.40); White Blood Count 7.22 K/ul (4.8-10.8)
[2024-02-15 07:12] LABS: BUN Creatinine Ratio 20.5 (10-20); Calcium 8.5 mg/dl (8.6-10.3); Creatinine Clr Calc Pharmacy 73.6 ml/min; Est GFR (African American) 88.6 ml/min; Est GFR (Non-African American) 76.5 ml/min; Potassium 4.1 mmol/L (3.5-5.1)
--- NOTE | 2024-02-15 08:44 | Pharmacy Report ---
Pharmacy Glycemic Short Note 2 - Date of Service February 15, 2024 - Glycemic Short BSG Results (Last 24 hours): 02/14/24 02/14/24 02/15/24 11:27 20:13 06:28 Glucose 133 H POC Glucose 132 H 112 H 02/15/24 07:33 Glucose POC Glucose 105 H OUTPATIENT ANTIDIABETIC REGIMEN: * N/A * HbA1c = 6.1% on 02/06/24 ASSESSMENT: 02/15/24: * Blood sugars remain very well-controlled postoperatively with bolus insulin only * Remains on dexamethasone 4 mg IV daily * Do not anticipate any changes to glycemic regimen today 02/13/24: * 73 y/o F admitted for spinal surgery today. Patient does not have a history of diabetes and was not on any anti-diabetic meds at home. * BSGs have been well controlled since admission. * Patient did receive IV Dexamethasone 8 mg in OR today and IV Dex 6 mg is continuing daily x 3 days. * Will add basal insulin on a scale at dinner time based on BSG in case it starts to trend up due to steroid effects. * Novolog started with loose parameters based on stress between 1 and 2. PLAN FOR INPATIENT GLYCEMIC CONTROL: * Basal insulin * hold * Bolus insulin * NovoLog per scale ACHS or Q6hrs while NPO * Goal Range: Low 110 mg/dL - High 140 mg/dL * Correction Factor: 30 mg/dL/unit * Nutritional / Prandial insulin per carb ratio of 1 unit per 10 grams CHO consumed
--- NOTE | 2024-02-15 08:56 | Orthopedic Progress Note ---
Date of Service February 15, 2024 Assessment & Plan (1) Neurogenic claudication due to lumbar spinal stenosis: Plan: At this time we will continue physical therapy monitor DENVER output anticipate discharge home tomorrow. Admission and Anticipated Discharge Date Admission Date: February 13, 2024 Subjective Patient's back pain is controlled. She is tolerating physical therapy. She is experiencing some numbness to the left anterior thigh. There is no pain. Physical Exam Physical Exam: Patient is comfortable alert has good strength testing. Results & Data Vital Signs (Past 12 Hours) Vital Signs Temp Pulse Resp BP Pulse Ox O2 Del Method 02/15/24 07:20 36.8 C 60 15 156/83 H 95 Room Air Queries Orthopedic Spine Obesity: Yes
--- NOTE | 2024-02-15 11:57 | Hospitalist Progress Note ---
Date of Service February 15, 2024 Assessment & Plan (1) S/P spinal surgery: Plan: This is a 73yo F with a PMH of DM II, history of provoked PE in Jul 2023 no longer on anticoagulation, HTN, BHAVIN, COPD and other medical problems listed below who is POD#0 s/p removal of posterior instrumentation L4-S1, exploration of fusion L4-S1, revision decompression with bilateral medial facetectomies and foraminotomies L2-L3 L3-L4 and posterior spinal fusion L2-L4 by Dr. Sapp. POD#2 s/p removal of posterior instrumentation L4-S1, exploration of fusion L4- S1, revision decompression with bilateral medial facetectomies and foraminotomies L2-L3 L3-L4 and posterior spinal fusion L2-L4 by Dr. Sapp Per ortho for pain control, wound care, anticoagulation and activities Monitor H&H (pre-op hgb 11.4, EBL 300ml). Repeat CBC is stable at 9.1 Continue incentive spirometry PT/OT eval today (2) Acute blood loss as cause of postoperative anemia: Plan: pre op hgb 11.4 post op 9.1 in setting of expected surgical blood loss and ongoing loss from DENVER drain as well as dilution - stable today (3) DM (diabetes mellitus), type 2: Plan: A1c 6.1 on 02/06/24 Not on home meds SSI while in-patient pharmacy on board, appreciate recs BSG AC HS (4) HTN (hypertension): Plan: Had been holding hctz, continue losartan and Toprol - BP increased lightly today, presume this is due to pain. Will resume HCTZ if remains elevated through the day (5) Kay's esophagus: Plan: Continue PPI (6) COPD (chronic obstructive pulmonary disease): Plan: At baseline. Continue albuterol inhaler PRN (7) Hypothyroidism: Plan: Continue levothyroxine (8) Pulmonary embolism: (9) Elevated homocysteine: Plan: H/o PE in July thought to have been provoked by covid. Followed with heme onc and underwent hypercoag work up which was only positive for homocysteine. No longer on anticoagulation as per direction from heme onc (10) Hyperlipidemia: Plan: Continue statin (11) Sleep apnea: Plan: Does not use CPAP DVT Ppx: SCDs Code status: FULL PCP: ELVIRA Cross ([facility]) Dispo: Per primary service I spent a total of 46 minutes coordinating, documenting, and providing care for this patient excluding time spent in the performance of separately billed ser vices. Thank you for involving our hospitalist team in Mrs. Nelson's care. We will follow the patient with you during their hospital stay. Admission and Anticipated Discharge Date Admission Date: February 13, 2024 Supervising Physician Co-Signing Physician Notes I have seen and discussed the case with the collaborating advanced practitioner. I agree with the above PN I have reviewed and confirmed the patients medical history, the findings on physical examination, and the patients diagnosis and treatment plan with Jackeline WESTFALL and agree with the information documented. I have reviewed the advanced practitioner's documentation, and I agree with, and take responsibility for the plan of care Subjective Patient reports that she has significant amount of low back pain today but is aware and is tolerating it without difficulty. This is her fifth back surgery and has full expectations that today is the worst day. She is tolerating oral intake without any difficulty. Bowels are moving, no urinary issues. She is hopeful for discharge home tomorrow. Review of Systems Review of Systems: Constitutional: No fever, sweats or chills Eyes: No diplopia, no worsening or blurred vision ENT: normal hearing, no trouble swallowing Respiratory: No cough, sputum, dyspnea at rest or on exertion Cardiovascular: No chest pain, tightness or palpitations Back pain: lower back, no radiating numbness or tingling Abdomen: No pain, nausea, vomiting, diarrhea or constipation Musculoskeletal: No joint pain, calf pain, swelling Neurologic: No weakness, numbness/tingling, or balance problems Psychiatric: No anxiety or depression Skin: No rash or itch Physical Exam Physical Exam: General: awake, alert, no apparent distress overweight white female Head: Normocephalic, atraumatic ENT: PERRL, EOMI, no pharyngeal exudate, mucous membranes moist Chest: Clear to auscultation, on room air, no adventitious breath sounds Cardiac: Regular rate and rhythm, no murmur, no JVD, normal peripheral pulses, good capillary refill Abdominal: NABS x 4 quadrants, soft, nondistended, nontender to palpation, no rebound or guarding Back: Dressing C/D/I, DENVER drain with serosanguineous output Extremities: Normal inspection, no peripheral edema or erythema, calfs nontender to palpation Psych: Normal mood and affect Neuro: AAO x 3, strength intact bilaterally and rated 5/5, no motor deficits, speech is clear, no peripheral sensory deficits Results & Data Results & Data Vital Signs (Past 12 Hours) Vital Signs Temp Pulse Resp BP Pulse Ox O2 Del Method 02/15/24 07:20 36.8 C 60 15 156/83 H 95 Room Air Laboratory Results 02/15/24 02/15/24 02/15/24 11:25 07:33 06:28 WBC 7.22 RBC 3.17 L Hgb 9.1 L Hct 28.5 L MCV 89.9 MCH 28.7 MCHC 31.9 L RDW Std Deviation 43.3 RDW Coeff of Starr 13.1 Plt Count 141 MPV 12.1 Sodium 141 Potassium 4.1 Chloride 102 Carbon Dioxide 35 H Anion Gap 4 BUN 16 Creatinine 0.78 Est Cr Clr Drug Dosing 73.6 Est GFR ( Amer) 88.6 Est GFR (Non-Af Amer) 76.5 BUN/Creatinine Ratio 20.5 H Glucose 133 H POC Glucose 113 H 105 H Calcium 8.5 L 02/14/24 20:13 WBC RBC Hgb Hct MCV MCH MCHC RDW Std Deviation RDW Coeff of Starr Plt Count MPV Sodium Potassium Chloride Carbon Dioxide Anion Gap BUN Creatinine Est Cr Clr Drug Dosing Est GFR ( Amer) Est GFR (Non-Af Amer) BUN/Creatinine Ratio Glucose POC Glucose 112 H Calcium
[2024-02-15 14:50] VITALS: RESP 18
[2024-02-16 07:27] VITALS: TEMP 98.1; O2SAT 96
[2024-02-16 08:09] VITALS: BP 162/75
--- NOTE | 2024-02-16 10:34 | Discharge Summary ---
Date of Service February 16, 2024 Admission HPI Per Admitting Provider This is a 73-year-old female presents with chronic persistent back and bilateral leg pain after failing course of nonoperative care is here for surgical invention. Principal Diagnosis Lumbar spinal stenosis with neurogenic claudication Discharge Data Allergies Allergy/AdvReac Type Severity Reaction Status Date / Time alprazolam AdvReac Mild Hallucinati Verified 02/13/24 06:47 ons baclofen AdvReac Mild Nausea Verified 02/13/24 06:47 ibuprofen AdvReac Mild Nausea Verified 02/13/24 06:47 lorazepam [From Ativan] AdvReac Mild Nausea Verified 02/13/24 06:47 Consultations 02/13/24 11:30 Consult Hospitalist Routine Procedures Performed Operation Date: 02/13/24 07:45 Actual Procedures p L2-L3 Decompression, L3-L4 Revision Decompression, L2-L4 Fusion, Spinal Cord Monitoring(Not Applicable) - Demarcus Sapp DO s L4 Hardware Removal, (Not Applicable) - Demarcus Sapp DO Ordered Studies 02/13/24 07:00 FL lumbar spine 2-3V Routine Hospital Course (1) Neurogenic claudication due to lumbar spinal stenosis: patient underwent lumbar decompression fusion tolerated so staying orthopedic for postoperative. Post ablation progressed appropriately. Set up and ambulating. Marked improvement of her leg pain. Extra-strength testing. DENVER drain decreasing appropriately. Sepsis discharge home. Discharge orders instructions from the chart for further review. Total Time Total Time Spent Total Time Spent (In Minutes): 20 minutes Discharge Plan Discharge Items Patient Disposition: Home - Self-Care Reason For Visit: Spinal Stenosis Lumbar Region with Neurogenic Ginger Discharge Diagnosis: lumbar spinal stenosis with neurogenic claudication Activity: As commented below Non-emergency contact: Primary Care Provider Call non-emergency contact if: you have any medication questions Follow-up/Referrals: Reina Cross CRNP [Primary Care Provider] - Diet: Regular Addtl Attending Provider Instructions: ACTIVITY RECOMMENDATIONS: SELF CARE INSTRUCTIONS AFTER THORACIC/LUMBAR FUSIONS 1. You may walk to your tolerance. It is good exercise for your legs and back. Expect some back and intermittent leg aches and pains. 2. You may perform "counter-top" level activities (make a sandwich, derek with a project, etc.). 3. No bending or lifting of more than 10 pounds or back twisting of any nature (roll like a log when turning in bed). 4. You may ride in a car for 20-30 minutes at a time. No driving until after your first visit with your doctor. 5. Frequent changes of position and restricting sitting to 30 minutes at a time will help limit the amount of back spasms and stiffness you may experience. 6. You may discontinue the use of ambulatory aids (cane, crutches, etc.) once your strength and confidence allow. 7. You may correctional captain the shower and let water strike your incision when you arrive home at least once daily. Do not take a tub bath, sit in a hot tub or go into a swimming pool until after your first recheck in the office. SPECIAL CARE INSTRUCTIONS: VERY IMPORTANT TO READ AND REVIEW A. Your surgical incision has been closed with a cosmetic suture under the skin that will dissolve in about 6 weeks. In 14 days, you can use a pair of clean scissors and cut the suture that is left outside of the skin at the ends of your incision. 1. The small skin tapes can be removed 7 days after surgery if they have not fallen off by that point. 2. You may keep the wound open to air as much as possible to promote healing after post-op day number 5 unless told otherwise by your doctor. 3. If you think the wound looks like it is becoming infected (redness or worsening drainage) and/or you are experiencing fever, chill or worsening back pain and muscle spasms, contact the office so that we may evaluate you as soon as possible. B. Complications are uncommon, but please contact us if you have any signs or symptoms of: 1. wound infection (fever higher than 102.5 degrees F, redness, separation of wound, drainage, or increasing pain from the incision) 2. blood clots in legs (pain, swelling, redness and warmth in legs) 3. urinary tract infection (fever higher than 102.5 degrees F, burning upon urination or increased frequency of urination) 4. nerve problems (inability to walk on your toes or heels, numbness, loss of bowel or bladder control) 5. any other symptoms that concern you C. Please call the office at if you have any concerns or questions about your operation or recovery. D. No smoking! Smoking drastically decreases the chance of a solid fusion. E. Do not take any anti-inflammatory medications (Indocin, Advil, Motrin, Aspirin, Naprosyn, etc.) as these may inhibit the chance of a solid fusion. Tylenol is okay to take for pain. MANAGING PAIN AFTER SPINAL SURGERY 1. Narcotic medication is intended for short-term use and will be provided for surgical pain. Surgical pain usually lasts for a period of 4-6 weeks. Narcotic medication includes Percocet, Vicodin, Darvocet, Tylenol #3 or Lortab. 2. Longer-term pain is more appropriately treated with non-narcotic medication such as Tylenol ES. 3. Muscle spasm is not appropriately treated with narcotics. Muscle relaxers such as Soma, Flexeril or Skelaxin can be used along with Tylenol ES. 4. Remember that we all live with some "aches and pains". This is not unusual or uncommon after an injury or as we get older. a. Back pain is expected and may include muscle spasms for 4 to 6 weeks after surgery. The pain should gradually improve. If the pain worsens for no apparent reason, please contact the office. b. Intermittent leg pain may also be experienced and should not be concerned about unless it worsens for no apparent reason. If so, please contact the office. 5. We will provide appropriate medication within the normal guidelines of their prescribed use. We will also be very cautious and aware of potential abuse and extended duration of patients' medication needs. a. Pain medications are for your comfort and to assist with sleep and rest so that the tissue can heal. They are not provided in order to return to normal activity and should not be used through the day. To do so or worsening pain at night can result from ongoing tissue damage and development of tolerance to the prescribed medicine. 6. Please allow 2-3 days to process refills. Prescriptions will not be mailed but must be picked up at the office. FOLLOW UP VISIT: Keep your scheduled follow-up appointment. Any questions, please call the office at . Pending Studies at Discharge: No Stand-Alone Forms: [facility] [employer], Smoking Cessation Medications and DC Order Prescriptions: New tramadol 50 mg tablet 50 mg PO Q6H PRN (Reason: pain, moderate) Qty: 30 0RF oxycodone 5 mg tablet 5 mg PO Q6H PRN (Reason: pain) Qty: 30 0RF Continued metoprolol succinate [Toprol XL] 50 mg tablet extended release 24 hr 75 mg PO QAM losartan-hydrochlorothiazide 100-25 mg tablet 1 tab PO QPM trazodone 50 mg tablet 50 - 100 mg PO HS PRN (Reason: sleep) Qty: 60 5RF albuterol sulfate 90 mcg/actuation HFA aerosol inhaler 2 puffs inhalation Q4H PRN (Reason: shortness of breath or wheezing) Qty: 18 3RF lidocaine 5 % ointment See Patient Comments topical TID PRN (Reason: Pain) Patient Comments: use 3 to 4 times daily Rx Instructions: as above (DME) OneTouch Ultra Blue Test Strip strip See Dose Instructions .ROUTE .MEDSUPPLY Qty: 100 2RF Dose Instruction: As directed Rx Instructions: As directed Dx E11.9 Test once daily. (DME) blood-glucose meter [ApplyKit Ultra2 Meter] kit See Dose Instructions .ROUTE .MEDSUPPLY Qty: 1 0RF Dose Instruction: As directed Rx Instructions: As directed (DME) lancets [OoyalaTouch Delica Lancets] 33 gauge misc See Dose Instructions .ROUTE .MEDSUPPLY Qty: 100 0RF Dose Instruction: As directed Rx Instructions: As directed folic acid 5 mg Capsule 5 mg PO QAM levothyroxine [Levoxyl] 25 mcg Tablet 25 mcg PO QAM atorvastatin 40 mg tablet 40 mg PO HS Rx Instructions: TAKE ONE TABLET BY MOUTH AT BEDTIME gabapentin 600 mg tablet 600 mg PO BID PRN (Reason: Pain) tizanidine 4 mg tablet 4 mg PO TID PRN (Reason: muscle spasms) Rx Instructions: TAKE ONE TABLET BY MOUTH THREE TIMES A DAY NEEDED FOR MUSCLE SPASTICITY. venlafaxine [Effexor XR] 150 mg capsule,extended release 24hr 150 mg PO QAM omeprazole 40 mg capsule,delayed release(DR/EC) 40 mg PO QAM Rx Instructions: TAKE ONE CAPSULE BY MOUTH TWICE A DAY mometasone 50 mcg/actuation spray,non-aerosol 2 sprays intranasal DAILY PRN (Reason: allergies) Discharge Orders: Discharge Order (Routine); Ordered 02/16/24 Ordered By: Demarcus Sapp Admission Data Admit Date/Time: 02/13/24 09:49 Attending Provider: Demarcus Sapp Admit Provider: Demarcus Sapp Primary Care Provider: Reina Cross Other Providers: Steven Bryant
[2024-02-16 11:09] VITALS: PULSE 62
--- NOTE | 2024-02-16 12:55 | Hospitalist Progress Note ---
Date of Service February 16, 2024 Assessment & Plan (1) S/P spinal surgery: Plan: This is a 73yo F with a PMH of DM II, history of provoked PE in Jul 2023 no longer on anticoagulation, HTN, BHAVIN, COPD and other medical problems listed below who is POD#0 s/p removal of posterior instrumentation L4-S1, exploration of fusion L4-S1, revision decompression with bilateral medial facetectomies and foraminotomies L2-L3 L3-L4 and posterior spinal fusion L2-L4 by Dr. Sapp. POD#3 s/p removal of posterior instrumentation L4-S1, exploration of fusion L4- S1, revision decompression with bilateral medial facetectomies and foraminotomies L2-L3 L3-L4 and posterior spinal fusion L2-L4 by Dr. Sapp Per ortho for pain control, wound care, anticoagulation and activities Monitor H&H (pre-op hgb 11.4, EBL 300ml). Repeat CBC is stable at 9.1 Continue incentive spirometry PT/OT eval Pt anticipates dc (2) Acute blood loss as cause of postoperative anemia: Plan: pre op hgb 11.4 post op 9.1 in setting of expected surgical blood loss and ongoing loss from DENVER drain as well as dilution - stable (3) DM (diabetes mellitus), type 2: Plan: A1c 6.1 on 02/06/24 Not on home meds SSI while in-patient pharmacy on board, appreciate recs BSG AC HS (4) HTN (hypertension): Plan: Had been holding hctz, continue losartan and Toprol - BP increased lightly today, presume this is due to pain. Will resume HCTZ if remains elevated through the day - ok to resume on dc (5) Kay's esophagus: Plan: Continue PPI (6) COPD (chronic obstructive pulmonary disease): Plan: At baseline. Continue albuterol inhaler PRN (7) Hypothyroidism: Plan: Continue levothyroxine (8) Pulmonary embolism: (9) Elevated homocysteine: Plan: H/o PE in July thought to have been provoked by covid. Followed with heme onc and underwent hypercoag work up which was only positive for homocysteine. No longer on anticoagulation as per direction from heme onc (10) Hyperlipidemia: Plan: Continue statin (11) Sleep apnea: Plan: Does not use CPAP DVT Ppx: SCDs Code status: FULL PCP: ELVIRA Cross ([facility]) Dispo: Per primary service , likely discharge home today. I spent a total of 45 minutes coordinating, documenting, and providing care for this patient excluding time spent in the performance of separately billed services. Thank you for involving our hospitalist team in Mrs. Nelson's care. We will follow the patient with you during their hospital stay. Admission and Anticipated Discharge Date Admission Date: February 13, 2024 Supervising Physician Co-Signing Physician Notes I have seen and discussed the case with the collaborating advanced practitioner. I agree with the above PN I have reviewed and confirmed the patients medical history, the findings on physical examination, and the patients diagnosis and treatment plan with Jackeline WESTFALL and agree with the information documented. I have reviewed the advanced practitioner's documentation, and I agree with, and take responsibility for the plan of care Subjective Pt is doing well today. Reports some soreness, but no other acute complaints. States her brother is going to have back surgery with Dr. Sapp today, and his daughter is bringing him over, so is planning on taking her home upon discharge. 10 point ROS reviewed and negative. Physical Exam Physical Exam: General: awake, alert, no apparent distress overweight white female Head: Normocephalic, atraumatic ENT: PERRL, EOMI, no pharyngeal exudate, mucous membranes moist Chest: Clear to auscultation, on room air, no adventitious breath sounds Cardiac: Regular rate and rhythm, no murmur, no JVD, normal peripheral pulses, good capillary refill Abdominal: NABS x 4 quadrants, soft, nondistended, nontender to palpation, no rebound or guarding Back: Dressing C/D/I, DEN[place] drain with serosanguineous output Extremities: Normal inspection, no peripheral edema or erythema, calfs nontender to palpation Psych: Normal mood and affect Neuro: AAO x 3, strength intact bilaterally and rated 5/5, no motor deficits, speech is clear, no peripheral sensory deficits Results & Data Results & Data Vital Signs (Past 12 Hours) Vital Signs Temp Pulse Pulse Resp BP Pulse Ox O2 Del Method 02/16/24 11:07 36.7 C 62 65 18 162/75 H 96 02/16/24 08:30 Room Air 02/16/24 08:09 162/75 H 02/16/24 07:26 36.7 C 65 18 96 Room Air
== END 2024-02-16 11:34 | disposition home or self-care (01) | DRG 454 ==
LOC: ASU 05:57 → 3E 09:49
DX: E03.9 Hypothyroidism, unspecified; E11.9 Type 2 diabetes mellitus without complications; J44.9 Chronic obstructive pulmonary disease, unspecified; G47.30 Sleep apnea, unspecified; G95.89 Other specified diseases of spinal cord; M48.062 Spinal stenosis, lumbar region with neurogenic claudication; I10 Essential (primary) hypertension; E78.5 Hyperlipidemia, unspecified; K22.70 Barrett's esophagus without dysplasia; Z87.891 Personal history of nicotine dependence; D62 Acute posthemorrhagic anemia; Z79.890 Hormone replacement therapy; Z88.5 Allergy status to narcotic agent

== ENCOUNTER 2024-02-20 08:12 | Inpatient (IN) ==
--- NOTE | 2024-02-20 08:39 | Emergency Department Note ---
Impression & Plan AL (acute kidney injury) ADMIT ED Provider Note HPI: History obtained from patient, bedside RN via EMS report. The patient is a 73-year-old female who presents emergency department after an unwitnessed fall. Patient reportedly had a fall at home. Patient has some mild confusion on arrival here to the ED. She states she does not remember what happened. Per EMS report patient's son found her after her fall and contacted EMS. Patient does note that she had back surgery several weeks ago. On arrival here to the ED the patient ambulates all of her extremities spontaneously, no outward evidence of trauma is noted. Patient otherwise appears to be in no acute distress. Patient is oriented to self and place but not time. ROS: - Per HPI Differential Diagnosis: Mechanical fall, intracranial injury to include subdural hematoma, syncopal event, arrhythmia, vasovagal event, acute coronary syndrome, amongst other potential pathologies. *Outpatient medications and allergy history reviewed. PE: General: Alert, follows commands without issue HEENT: Normocephalic, trachea midline Eyes: Extraocular eye movement is intact, no scleral erythema Pulmonary: Clear to auscultation bilaterally, no wheezing Cardio: Regular rate and rhythm GI: Abdomen is soft to palpation : No suprapubic tenderness MSK: No evidence of trauma or malformation of the extremities, no edema Skin: Recent lumbar surgical wound appears to be without surrounding erythema, there is no purulent drainage, otherwise no evidence of rash Neuro: Alert, no focal deficits, equal bilateral control clerk auditing strength, symmetrical facial movements are appreciated, patient ambulates all 4 extremities spontaneously without issue Psychiatric: Cooperative INDEPENDENT INTERPRETATIONS: entry level web developer: (As interpreted by myself): - An order was placed for continuous cardiac monitoring - Patient was noted to be in sinus rhythm with a rate of 80 EKG: (As interpreted by myself): Rate: 76 Rhythm: Normal sinus rhythm Intervals: Within normal limits ST changes: No ST elevation Time: 0852 Interventions provided in ED: -IV fluid bolus Medical Decision Making: IV was established and lab work obtained, patient was placed on cardiac rehabilitation program director. Lab work shows no leukocytosis, hemoglobin is stable at 11.0, platelet count is normal, CMP does not show any critical findings, creatinine is noted to be elevated above baseline at 1.72, troponin is negative, EKG per my interpretation shows normal sinus rhythm without any acute ischemic changes. Urinalysis does not show any evidence of infection. CT imaging of the head was obtained given the patient's recent fall, this does not show any evidence of any intracranial hemorrhage. CT imaging of the lumbar spine was also obtained as the patient reportedly had some back pain in the field, this does not show any evidence of fracture and does demonstrate postoperative changes from the patient's recent lumbar decompression. On my reassessment the patient appears somewhat listless. She did receive IV fentanyl by EMS prior to arrival for back pain. This could be playing a role in some of her mild confusion and encephalopathy. She is still able to follow commands but appears to be mildly encephalopathic. She does not have any focal deficits that would suggest stroke but I do think she needs to be admitted to the hospital for further management. Case was discussed with the [facility] hospitalist service and the patient was admitted to the hospitalist service in stable condition. Consultants/Discussions held with other healthcare providers: -Hospitalist, Dr. Choi Disposition discussion held by myself with: -Patient's daughter at the bedside Diagnosis: 1. Acute kidney injury 2. Unwitnessed fall 3. Encephalopathy, acute, nonspecific 4. Status post lumbar decompression surgery Disposition: Admission Tony Chaves DO Emergency Medicine Past Med/Surg History Problem List (Updated 02/20/24 @ 11:50 by Tony Chaves DO) AL (acute kidney injury) (Acute) Fall Acute blood loss as cause of postoperative anemia S/P spinal surgery DM (diabetes mellitus), type 2 Neurogenic claudication due to lumbar spinal stenosis Lumbar radiculopathy, acute Kay's esophagus (Chronic) HTN (hypertension) (Chronic) IBS (irritable bowel syndrome) (Chronic) Lumbar disc disease (Chronic) Osteoarthritis of both knees (Chronic) Osteoarthritis of wrist (Chronic) Vitamin B12 deficiency (Chronic) Insomnia Gastroesophageal reflux Sleep apnea Vitamin D deficiency Hyperlipidemia COPD (chronic obstructive pulmonary disease) Benign essential hypertension Medical History (Updated 02/20/24 @ 11:50 by Tony Chaves DO) 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 per [facility] Heme/onc Pulmonary embolism (~07/2023) Hx of irritable bowel syndrome Hiatal hernia Lumbar disc disease Hyperlipidemia Hypothyroidism Diabetes mellitus Diet controlled Benign essential hypertension Sleep apnea No device Asthma Hx of colonic polyps Barretts esophagus COPD (chronic obstructive pulmonary disease) Patient states she was told by pulmonary that she had asthma (not COPD) Per remote [facility] pulmonary records in 2018, possible patient may only have asthma based on spirometry findings, COPD diagnosis still listed in [facility] records since GERD (gastroesophageal reflux disease) Surgical History (Updated 02/13/24 @ 14:02 by Lori Soto PA-C) History of postoperative nausea and vomiting Hx of colonoscopy with polypectomy Hx of hernia repair abdominal Hx of hand surgery 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 05/08 - left thumb History of bilateral carpal tunnel release Hx of lumbosacral spine surgery x3 L4-L5 Hx of hysterectomy Hx of cholecystectomy Hx of tonsillectomy (1961) x2 Family History Other COPD (chronic obstructive pulmonary disease) Diabetes Social History Smoking Status: Never smoker Age Started Using Tobacco: 15; Age Quit Using Tobacco: 45; packs per day: 1.5; Cigarettes Per Day: 30; Second Hand Exposure: No; Do You Dip or Chew Tobacco: No; Hx Alcohol Use: Yes Alcohol Intake Frequency: 2-4 x/Month Hx Substance Use: No Preferred Language: Portuguese Communication Ability: Effective Communication Ability Comment: Good Visual Impairment: No Limitations Hearing Ability: Normal Carburizing Furnace Operator Required: No Beliefs That Will Affect Care: None Current Living Situation: Family Feels Safe at Home: Yes Dental Care, Regularly: Yes Physical Activity Frequency: Does not Exercise Seatbelt Use: always Sunscreen Use: Yes Assistive Devices: Cane and Walker Allergies Allergies Allergy/AdvReac Type Severity Reaction Status Date / Time alprazolam AdvReac Mild Hallucinati Verified 02/13/24 06:47 ons baclofen AdvReac Mild Nausea Verified 02/13/24 06:47 ibuprofen AdvReac Mild Nausea Verified 02/13/24 06:47 lorazepam [From Ativan] AdvReac Mild Nausea Verified 02/13/24 06:47 Home Meds Home Medications Medication Instructions Recorded Confirmed lidocaine 5 % topical ointment See Rx Instructions topical TID 04/23/19 02/20/24 PRN Pain losartan 100 1 tab PO QPM 05/28/19 02/20/24 mg-hydrochlorothiazide 25 mg tablet metoprolol succinate 50 mg 75 mg PO QAM 05/28/19 02/20/24 tablet,extended release 24 hr (Toprol XL) atorvastatin 40 mg tablet 40 mg PO HS 01/30/24 02/20/24 folic acid 5 mg capsule 5 mg PO QAM 01/30/24 02/20/24 gabapentin 600 mg tablet 600 mg PO BID PRN Pain 01/30/24 02/20/24 levothyroxine 25 mcg tablet 25 mcg PO QAM 01/30/24 02/20/24 (Levoxyl) mometasone 50 mcg/actuation nasal 2 sprays intranasal DAILY PRN 01/30/24 02/20/24 spray allergies omeprazole 40 mg capsule,delayed 40 mg PO QAM 01/30/24 02/20/24 release tizanidine 4 mg tablet 4 mg PO TID PRN muscle spasms 01/30/24 02/20/24 venlafaxine 150 mg 150 mg PO QAM 01/30/24 02/20/24 capsule,extended release 24 hr (Effexor XR) Previous Rx's Medication Instructions Recorded albuterol sulfate 90 mcg/actuation 2 puffs inhalation Q4H PRN 01/02/19 aerosol inhaler shortness of breath or wheezing #18 grams blood sugar diagnostic (Green[employer]Touch #100 ea 04/24/19 Ultra Blue Test Strip) blood-glucose meter ([employer]Touch #1 ea 04/24/19 Ultra2 Meter kit) lancets 33 gauge ([employer]Touch Delica #100 ea 04/24/19 Lancets) trazodone 50 mg tablet 50 - 100 mg (1 - 2 x 50 mg) PO HS 05/29/19 PRN sleep #60 tabs oxycodone 5 mg tablet 5 mg PO Q6H PRN pain #30 tabs 02/14/24 tramadol 50 mg tablet 50 mg PO Q6H PRN pain, moderate 02/14/24 #30 tabs Results & Data (ED) Vital Signs Vital Signs - 24 hr 02/20/24 08:03 02/20/24 08:03 02/20/24 08:20 Temperature 36.8 C Temperature Source Oral Pulse Rate 86 Pulse Rate [Apical] 86 Pulse Rate from SpO2 Sensor Pulse Rhythm Regular Pulse Rhythm [Apical] Regular Pulse Strength Normal Pulse Strength [Apical] Normal Respiratory Rate 16 16 Respiratory Effort / Characteristics Non-Labored Non-Labored Respiratory Depth Normal Normal Respiratory Pattern Regular Regular Blood Pressure 135/86 135/86 Blood Pressure [Right Arm] 135/86 Blood Pressure Mean 102 120 Blood Pressure Mean [Right Arm] 102 Blood Pressure Position Lying Pulse Oximetry 94 94 Oxygen Delivery Method Room Air Room Air Sepsis Recent Fever Within 48 Hours No Sepsis New/Unexplained Change in Mental Status No Sepsis Action Taken by Nursing No Action Required 02/20/24 08:33 02/20/24 08:36 02/20/24 09:12 Temperature Temperature Source Pulse Rate 79 86 76 Pulse Rate [Apical] Pulse Rate from SpO2 Sensor 79 77 Pulse Rhythm Pulse Rhythm [Apical] Pulse Strength Pulse Strength [Apical] Respiratory Rate 18 16 11 L Respiratory Effort / Characteristics Respiratory Depth Respiratory Pattern Blood Pressure Blood Pressure [Right Arm] Blood Pressure Mean Blood Pressure Mean [Right Arm] Blood Pressure Position Pulse Oximetry 95 94 93 Oxygen Delivery Method Room Air Sepsis Recent Fever Within 48 Hours Sepsis New/Unexplained Change in Mental Status Sepsis Action Taken by Nursing 02/20/24 09:33 02/20/24 09:36 02/20/24 09:53 Temperature Temperature Source Pulse Rate 71 71 Pulse Rate [Apical] Pulse Rate from SpO2 Sensor 71 71 Pulse Rhythm Pulse Rhythm [Apical] Pulse Strength Pulse Strength [Apical] Respiratory Rate 15 13 Respiratory Effort / Characteristics Respiratory Depth Respiratory Pattern Blood Pressure 103/56 L Blood Pressure [Right Arm] Blood Pressure Mean 75 Blood Pressure Mean [Right Arm] Blood Pressure Position Pulse Oximetry 93 93 Oxygen Delivery Method Sepsis Recent Fever Within 48 Hours Sepsis New/Unexplained Change in Mental Status Sepsis Action Taken by Nursing 02/20/24 09:53 02/20/24 09:54 02/20/24 10:00 Temperature Temperature Source Pulse Rate 68 Pulse Rate [Apical] Pulse Rate from SpO2 Sensor 68 Pulse Rhythm Pulse Rhythm [Apical] Pulse Strength Pulse Strength [Apical] Respiratory Rate 18 Respiratory Effort / Characteristics Respiratory Depth Respiratory Pattern Blood Pressure 103/56 L 92/58 L Blood Pressure [Right Arm] Blood Pressure Mean 75 69 Blood Pressure Mean [Right Arm] Blood Pressure Position Pulse Oximetry 93 Oxygen Delivery Method Sepsis Recent Fever Within 48 Hours Sepsis New/Unexplained Change in Mental Status Sepsis Action Taken by Nursing 02/20/24 10:06 02/20/24 10:15 02/20/24 10:25 Temperature Temperature Source Pulse Rate 68 68 Pulse Rate [Apical] Pulse Rate from SpO2 Sensor 68 67 Pulse Rhythm Pulse Rhythm [Apical] Pulse Strength Pulse Strength [Apical] Respiratory Rate 17 14 Respiratory Effort / Characteristics Respiratory Depth Respiratory Pattern Blood Pressure 140/78 Blood Pressure [Right Arm] Blood Pressure Mean 114 Blood Pressure Mean [Right Arm] Blood Pressure Position Pulse Oximetry 92 92 Oxygen Delivery Method Sepsis Recent Fever Within 48 Hours Sepsis New/Unexplained Change in Mental Status Sepsis Action Taken by Nursing 02/20/24 10:30 02/20/24 10:30 02/20/24 10:30 Temperature Temperature Source Pulse Rate Pulse Rate [Apical] Pulse Rate from SpO2 Sensor Pulse Rhythm Pulse Rhythm [Apical] Pulse Strength Pulse Strength [Apical] Respiratory Rate Respiratory Effort / Characteristics Respiratory Depth Respiratory Pattern Blood Pressure 134/70 134/70 134/70 Blood Pressure [Right Arm] Blood Pressure Mean 77 77 77 Blood Pressure Mean [Right Arm] Blood Pressure Position Pulse Oximetry Oxygen Delivery Method Sepsis Recent Fever Within 48 Hours Sepsis New/Unexplained Change in Mental Status Sepsis Action Taken by Nursing 02/20/24 10:39 02/20/24 10:54 02/20/24 11:00 Temperature Temperature Source Pulse Rate 72 72 Pulse Rate [Apical] Pulse Rate from SpO2 Sensor 72 71 Pulse Rhythm Pulse Rhythm [Apical] Pulse Strength Pulse Strength [Apical] Respiratory Rate 13 12 Respiratory Effort / Characteristics Respiratory Depth Respiratory Pattern Blood Pressure 126/59 L Blood Pressure [Right Arm] Blood Pressure Mean 98 Blood Pressure Mean [Right Arm] Blood Pressure Position Pulse Oximetry 96 95 Oxygen Delivery Method Room Air Sepsis Recent Fever Within 48 Hours Sepsis New/Unexplained Change in Mental Status Sepsis Action Taken by Nursing 02/20/24 11:25 Temperature Temperature Source Pulse Rate Pulse Rate [Apical] 78 Pulse Rate from SpO2 Sensor Pulse Rhythm Pulse Rhythm [Apical] Pulse Strength Pulse Strength [Apical] Respiratory Rate 18 Respiratory Effort / Characteristics Respiratory Depth Respiratory Pattern Blood Pressure Blood Pressure [Right Arm] 126/59 L Blood Pressure Mean Blood Pressure Mean [Right Arm] 81 Blood Pressure Position Pulse Oximetry 96 Oxygen Delivery Method Sepsis Recent Fever Within 48 Hours Sepsis New/Unexplained Change in Mental Status Sepsis Action Taken by Nursing Laboratory Data 02/20/24 08:25 02/20/24 08:25 Lab Results 02/20/24 02/20/24 Range/Units 08:25 Unknown WBC 10.61 (4.8-10.8) K/ul RBC 3.85 L (4.20-5.40) M/uL Hgb 11.0 L (12.0-16.0) g/dl Hct 33.9 L (37.0-47.0) % MCV 88.1 (80.0-100.0) fL MCH 28.6 (25.0-34.0) pg MCHC 32.4 (32.0-36.0) g/dL RDW Std Deviation 42.6 (36.4-46.3) fL RDW Coeff of Starr 13.2 (11.5-14.5) % Plt Count 235 (130-400) K/uL MPV 11.0 (9.4-12.4) fL Immature Gran % (Auto) 0.8 % Neut % (Auto) 72.0 % Lymph % (Auto) 13.0 % [place] % (Auto) 10.9 % Eos % (Auto) 2.8 % Baso % (Auto) 0.5 % Neut # (Auto) 7.64 H (1.40-6.50) K/uL Lymph # (Auto) 1.38 (1.20-3.40) K/uL [place] # (Auto) 1.16 H (0.11-0.59) K/uL Eos # (Auto) 0.30 (0.00-0.50) K/uL Baso # (Auto) 0.05 (0.00-0.20) K/uL Immature Gran # (Auto) 0.08 (0.01-0.20) K/uL PT 10.2 (9.0-12.0) Seconds INR 0.9 (0.9-1.1) Sodium 137 (136-145) mmol/L Potassium 4.0 (3.5-5.1) mmol/L Chloride 100 (98-107) mmol/L Carbon Dioxide 28 (21-32) mmol/L Anion Gap 9 (3-11) BUN 17 (6-23) mg/dl Creatinine 1.72 H (0.6-1.2) mg/dl Est Cr Clr Drug Dosing 30.4 ml/min Est GFR ( Amer) 34.1 ml/min Est GFR (Non-Af Amer) 29.4 ml/min BUN/Creatinine Ratio 9.9 L (10-20) Glucose 141 H (70-99(Fasting)) mg/dl Calcium 8.7 (8.6-10.3) mg/dl Total Bilirubin 0.5 (0.2-1.0) mg/dl AST 12 L (13-39) U/L ALT 7 (7-52) U/L Alkaline Phosphatase 83 (34-104) U/L Troponin I High Sens 4.3 (0-14) pg/ml Total Protein 6.9 (6.0-8.3) gm/dl Albumin 3.6 (3.4-5.0) gm/dl Globulin 3.3 (2.5-4.0) gm/dl Albumin/Globulin Ratio 1.1 (0.9-2) Lipase 19 (11-82) U/L Urine Color Yellow Urine Appearance Clear (Clear) Urine pH 6.0 (4.5-7.5) Ur Specific [place] 1.008 (1.000-1.030) Urine Protein Trace H (Negative) Urine Glucose (UA) Negative (Negative) Urine Ketones Negative (Negative) Urine Blood Negative (Negative) Urine Nitrite Negative (Negative) Urine Bilirubin Negative (Negative) Urine Urobilinogen Negative (Negative) Ur Leukocyte Esterase Negative (Negative) Administered Medications Discontinued Medications Sodium Chloride (Nss) 500 mls @ 999 mls/hr IV .Q31M STA Stop: 02/20/24 09:06 Last Infusion: 02/20/24 09:36 Dose: Infused Documented By: Admin: 02/20/24 09:10 Dose: 999 mls/hr Documented By: SRL Sodium Chloride (Nss) 1,000 mls @ 999 mls/hr IV .Q1H1M ONE Stop: 02/20/24 10:24 Last Infusion: 02/20/24 11:13 Dose: Infused Documented By: Admin: 02/20/24 09:37 Dose: 999 mls/hr Documented By: SRL Imaging Data Radiologist's Impression: Chest X-Ray 02/20/24 08:36 SINGLE VIEW CHEST CLINICAL HISTORY: Atypical chest pain. FINDINGS: An AP, portable, upright chest radiograph is obtained. No prior studies are available for comparison at the time of dictation. The cardiomediastinal silhouette is top normal for projection. There is mild bibasilar atelectasis. The lungs and pleural spaces are otherwise clear. No pneumothorax is seen. The skeletal structures are osteopenic. The bony thorax is grossly intact. IMPRESSION: No active disease in the chest. ACT 112: Negative or not required by law. Electronically signed by: Prosper Davalos M.D. 02/20/2024 8:[address] 02/20/24 08:36 CT OF THE HEAD WITHOUT CONTRAST CLINICAL HISTORY: fall COMPARISON STUDY: No previous studies for comparison. CT DOSE: 1600.2 mGy.cm TECHNIQUE: Helical axial images of the head were obtained without IV contrast. Automated exposure control was utilized for the study. A dose lowering technique was utilized adhering to the principles of ALARA. FINDINGS: No acute intracranial hemorrhage, midline shift or mass effect is present. White matter hypodensities favor small vessel disease. The ventricular system is unremarkable. The basal cisterns are patent. No extra-axial collections are present. There are no findings to suggest acute dural sinus thrombosis or acute territorial infarct. No significant calvarial abnormalities are present. Visualized portions of the sinuses and mastoid air cells are clear. IMPRESSION: 1. No acute intracranial findings. 2. No calvarial fractures. ACT 112: Negative or not required by law. Electronically signed by: Ayden Fraser M.D. 02/20/2024 9:[address] 02/20/24 08:36 CT SCAN OF THE LUMBAR SPINE WITHOUT IV CONTRAST CLINICAL HISTORY: Fall. Recent lumbar surgery. COMPARISON STUDY: No priors. TECHNIQUE: CT scan of the lumbar spine is performed from the lower thoracic spine to the sacrum. Images are reviewed in the axial, sagittal, and coronal planes. IV contrast was not administered for this examination. A dose lowering technique was utilized adhering to the principles of ALARA. The examination is degraded by large body habitus, and by streak artifact from the body wall, abutting the CT entry. There is also streak artifact from multilevel metallic spinal hardware. FINDINGS: The skeletal structures are osteopenic. There is no evidence of acute fracture or malalignment involving the lumbar spine. Vertebral body height and alignment are maintained. Anterior and lateral marginal osteophytes are seen throughout. There has been discectomy at L2-L3 and L5-S1 with laminectomy and posterior fusion at L2-S1. Interpedicular screws are present at all levels. The orthopedic hardware appears intact. The transverse processes appear intact. No lytic or blastic lesion is seen. There is [id number] disc space narrowing at L3-L4. The remaining disc spaces appear maintained. There is no CT evidence of large disc herniation or high-grade central canal stenosis. Note that this is not well assessed due to significant streak artifact. Postoperative change is seen posterior to the thecal sac at the operative levels. Tiny foci of gas around the spinal canal at L2 are likely related to recent surgery. There is fatty atrophy of the paraspinous musculature. Imaged portions of the sacrum and bony pelvis appear intact. IMPRESSION: 1. No acute bony abnormality is seen involving the lumbar spine. 2. Osteopenia with postsurgical and spondylotic change as above. ACT 112: Negative or not required by law. Dictated: 02/20/2024 9:05 AM Transcribed: 02/20/2024 9:15 AM Fredy [id number] [email or web address] Electronically signed by: Prosper Davalos M.D. 02/20/2024 10:01 AM Discharge Plan Visit Data Chief Complaint: Fall Stated Complaint: Fall ED Provider: Tony Chaves Discharge Problem: AL (acute kidney injury) Forms Stand Alone Forms: My [facility] Prescriptions Prescriptions: No Action metoprolol succinate [Toprol XL] 50 mg tablet extended release 24 hr 75 mg PO QAM losartan-hydrochlorothiazide 100-25 mg tablet 1 tab PO QPM trazodone 50 mg tablet 50 - 100 mg PO HS PRN (Reason: sleep) Qty: 60 5RF albuterol sulfate 90 mcg/actuation HFA aerosol inhaler 2 puffs inhalation Q4H PRN (Reason: shortness of breath or wheezing) Qty: 18 3RF lidocaine 5 % ointment See Patient Comments topical TID PRN (Reason: Pain) Patient Comments: use 3 to 4 times daily Rx Instructions: as above (DME) OneTouch Ultra Blue Test Strip strip See Dose Instructions .ROUTE .MEDSUPPLY Qty: 100 2RF Dose Instruction: As directed Rx Instructions: As directed Dx E11.9 Test once daily. (DME) blood-glucose meter [GreenPeak [employer]Touch Ultra2 Meter] kit See Dose Instructions .ROUTE .MEDSUPPLY Qty: 1 0RF Dose Instruction: As directed Rx Instructions: As directed (DME) lancets [OneTouch Delica Lancets] 33 gauge misc See Dose Instructions .ROUTE .MEDSUPPLY Qty: 100 0RF Dose Instruction: As directed Rx Instructions: As directed folic acid 5 mg Capsule 5 mg PO QAM levothyroxine [Levoxyl] 25 mcg Tablet 25 mcg PO QAM atorvastatin 40 mg tablet 40 mg PO HS Rx Instructions: TAKE ONE TABLET BY MOUTH AT BEDTIME gabapentin 600 mg tablet 600 mg PO BID PRN (Reason: Pain) tizanidine 4 mg tablet 4 mg PO TID PRN (Reason: muscle spasms) Rx Instructions: TAKE ONE TABLET BY MOUTH THREE TIMES A DAY NEEDED FOR MUSCLE SPASTICITY. venlafaxine [Effexor XR] 150 mg capsule,extended release 24hr 150 mg PO QAM omeprazole 40 mg capsule,delayed release(DR/EC) 40 mg PO QAM Rx Instructions: TAKE ONE CAPSULE BY MOUTH TWICE A DAY mometasone 50 mcg/actuation spray,non-aerosol 2 sprays intranasal DAILY PRN (Reason: allergies) tramadol 50 mg tablet 50 mg PO Q6H PRN (Reason: pain, moderate) Qty: 30 0RF oxycodone 5 mg tablet 5 mg PO Q6H PRN (Reason: pain) Qty: 30 0RF Referrals Referrals: Reina Cross CRNP [Primary Care Provider] -
[2024-02-20 09:00] LABS: Basophils # (auto) 0.05 K/uL (0.00-0.20); Basophils % (auto) 0.5 %; Eosinophils % (auto) 2.8 %; Hematocrit (blood only) 33.9 % (37.0-47.0); Immature Granulocytes # (auto) 0.08 K/uL (0.01-0.20); Immature Granulocytes % (auto) 0.8 %; Lymphocytes # (auto) 1.38 K/uL (1.20-3.40); Mean Corpuscular Hemoglobin 28.6 pg (25.0-34.0); Mean Corpuscular Hgb Conc 32.4 g/dL (32.0-36.0); Mean Corpuscular Volume 88.1 fL (80.0-100.0); Monocytes # (auto) 1.16 K/uL (0.11-0.59); Monocytes % (auto) 10.9 %; Neutrophils # (auto) 7.64 K/uL (1.40-6.50); Platelet Count 235 K/uL (130-400); RDW Coefficient of Variation 13.2 % (11.5-14.5); RDW Standard Deviation 42.6 fL (36.4-46.3); Red Blood Count 3.85 M/uL (4.20-5.40); White Blood Count 10.61 K/ul (4.8-10.8)
--- NOTE | 2024-02-20 09:00 | XRay Report ---
SINGLE VIEW CHEST CLINICAL HISTORY: Atypical chest pain. FINDINGS: An AP, portable, upright chest radiograph is obtained. No prior studies are available for c omparison at the time of dictation. The cardiomediastinal silhouette is top normal for projection. Th ere is mild bibasilar atelectasis. The lungs and pleural spaces are otherwise clear. No pneumothorax is seen. The skeletal structures are osteopenic. The bony thorax is grossly intact. IMPRESSION: No active disease in the chest. ACT 112: Negative or not required by law. Electronically signed by: Prosper Davalos M.D. 02/20/2024 8:58 AM
[2024-02-20] MEDS: SODIUM CHLORIDE 0.9% 500 ML IV STA (09:10)
--- NOTE | 2024-02-20 09:12 | CT Scan Report ---
CT OF THE HEAD WITHOUT CONTRAST CLINICAL HISTORY: fall COMPARISON STUDY: No previous studies for comparison. CT DOSE: 1600.2 mGy.cm TECHNIQUE: Helical axial images of the head were obtained without IV contrast. Automated exposure con trol was utilized for the study. A dose lowering technique was utilized adhering to the principles o f ALARA. FINDINGS: No acute intracranial hemorrhage, midline shift or mass effect is present. White matter hyp odensities favor small vessel disease. The ventricular system is unremarkable. The basal cisterns are patent. No extra-axial collections are present. There are no findings to suggest acute dural sinus t hrombosis or acute territorial infarct. No significant calvarial abnormalities are present. Visualize d portions of the sinuses and mastoid air cells are clear. IMPRESSION: 1. No acute intracranial findings. 2. No calvarial fractures. ACT 112: Negative or not required by law. Electronically signed by: Ayden Fraser M.D. 02/20/2024 9:10 AM
[2024-02-20 09:16] LABS: Albumin Globulin Ratio 1.1 (0.9-2); Albumin Level 3.6 gm/dl (3.4-5.0); BUN Creatinine Ratio 9.9 (10-20); Bilirubin,Total 0.5 mg/dl (0.2-1.0); Calcium 8.7 mg/dl (8.6-10.3); Creatinine Clr Calc Pharmacy 30.4 ml/min; Est GFR (African American) 34.1 ml/min; Est GFR (Non-African American) 29.4 ml/min; Globulin 3.3 gm/dl (2.5-4.0); Total Protein 6.9 gm/dl (6.0-8.3)
[2024-02-20 09:20] LABS: INR 0.9 (0.9-1.1); Prothrombin Time 10.2 Seconds (9.0-12.0)
[2024-02-20 09:21] LABS: Troponin I High Sensitivity 4.3 pg/ml (0-14)
--- OUTSIDE RECORDS SUMMARY | 2024-02-20 09:28 | External Medical Summary | Summary of Care ---
Author Name Unknown Organization [facility] [address] [facility] [address] Phone [phone] Care Team Providers Care Estate And Trust Tax Principal Name Role Phone Unavailable Primary Care Provider Unavailabl e Reason for Visit * Reason Onset Date Comments Health Maintenance 02/14/2024 Encounter Details Date Type Department Care Team (Late st Contact Info) Description 02/14/[address] [facility] [place] [address] [facility] [place] [phone] Reina Cross CRNP 21 [facility] [place] CollierwJAM[place] gilbert [phone] Health Maintenance Allergies Active Allergy Reactions Criticality Noted Date Comments Alprazolam 10/22/2001 Irritable/mean Lorazepam Other (Please comment) 06/10/2013 Confused and "out of it for days" Baclofen Psych complications 11/16/2012 Ibuprofen 10/22/2001 GI intolerence Metformin 10/18/2021 Stomach documented as of this encounter (statuses as of 02/14/2024) Medications Medication Sig Dispensed Refills Start Date [...] TWICE A DAY 180 Capsule 3 01/17/2024 Active Venlafaxine HCl ER 150 MG Oral [...] the morning. 90 Capsule 3 02/07/2024 Active oxyCODONE HCl 5 MG Oral Tablet (Oxy IR) take 1 tablet orally every 6 hours As Needed for pain 30 Tablet 02/14/2024 Active traMADol HCl 50 MG Oral Tablet (Ultram) Take 1 tablet orally every 6 hours As Needed for pain, moderate 30 Tablet 02/14/2024 Active documented as of this encounter (statuses as of 02/14/2024) Active Problems Problem Noted Date Diagnosed Date [...] as of this encounter (statuses as of 02/14/2024) Resolved Problems Problem Noted Date Diagnosed Date [...] program 07/24/2018 08/23/2019 Overview: DO NOT DELETE Glance DETECT Study: Project # [id number], Glove Tagger: Saad Bray, PhD. SUMMARY: Goal: Establish test [...] contact study staff at ; after hours Glove Tagger via the [facility] animation camera operator . Please contact study team before resolving/deleting from patients problem list. Study phone number: [phone]. Diagnosis changed due to Research Module. Go to Snapshot for study details. Encounter for examination fo r normal comparison and control in clinical research program 07/24/2018 03/17/2022 Overview: DO NOT DELETE - Glance DETECT Study: Project # [id number], Glove Tagger: Mandeep Mcpherson, MS, MPH. SUMMARY: Goal: Establish [...] contact study staff at ; after hours Glove Tagger via the [facility] animation camera operator . - Please contact study team before resolving/deleting from patients problem list. Study phone number: [phone]. Diagnosis changed due to Research Module. 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 10/11/2005 017 [...] as of this encounter (statuses as of 02/14/2024) Immunizations Name Administration Dates Next Due COVID-19 mRNA, LNP-s, No Pre serve, 2-Dose Series (Securens) 08/04/2021,11/20/2020,10/28/2020 Pneumococcal Conjugate Vacc, 13 Valent (Prevnar) [...] encounter Miscellaneous Notes * Telephone Encounter - Katy Florse LPN - 02/14/2024 1:09 PM EDT Care Gaps Comprehensive Care Outreach Last Office/Telemedicine Visit: 02/07/2024 (in office), Visit date not found (telemedicine) Next Office Visit: 06/18/2024 Hemoglobin AIC Results: Lab Results Component Value Date/Time HEMOGLOBIN A1C - [facility] 6.8 (H) 08/10/2023 11:52 AM HEMOGLOBIN A1C - [facility] 6.3 (H) 12/22/2022 01:38 PM HEMOGLOBIN A1C - [facility] 7.0 (H) 10/18/2021 05:08 PM HEMOGLOBIN A1C - [facility] 6.1 (H) 06/25/2020 07:51 AM HEMOGLOBIN A1C - [facility] 6.4 (H) 03/10/2020 10:20 AM HEMOGLOBIN A1C - [facility] 6.0 (H) 12/10/2019 12:25 PM BP Readings from Last 1 Encounters: 02/07/24 176/82 Reviewed Health Maintenance below: Health Maintenance Topic Date Due Diabetic Eye Exam 12/30/2023 HbA1c 02/08/2024 DXA Scan 08/08/2024 Mammogram 08/14/2024 TSH 09/21/2024 Albumin/Creatinine Ratio 12/14/2024 Diabetic Foot Exam 12/14/2024 GFR 12/14/2024 Care Gap Outreach Action Taken: Unable to reach and Ofuzhart message sent documented in this encounter Plan of Treatment Upcoming Encounters Date Type Department Care Team (Late st Contact Info) Description 04/10/2024 10:00 AM EDT Office Visit Rheumatology, [address] [place] [address] Jonny Guzman PA-C [address] [place] [address], [place] [address] 06/18/2024 6:00 PM EST Office Visit Family [facility] [address] [place] [phone] Reina Cross CRNP 21 [place] [address] 08/16/2024 1:50 PM EST Nurse Only Ancillary 1st Floor, [place] 21 [facility] [place] [address] [place], [facility] [address] [place] [address] 08/21/2024 2:45 PM EST Office Visit Ophthalmology, [place] 21 [facility] [place] [address] Juan Childers MD 21 [place] [address] 08/26/2024 11:30 AM EST Hospital Encounter [facility], Endoscopy [address] [phone] Willam Cardona MD [address] [place] [address] 08/26/2024 11:30 AM EST - 08/26/2024 12:00 PM EST Surgery [facility], Endoscopy [address] [phone] Willam Cardona MD [address] [place], [place] [address] COLONOSCOPY FLEXIBLE PROXIMAL DIAGNOSTIC Scheduled Procedures Name Priority Associated Diagnoses Date/Ti wi COLONOSCOPY FLEXIBLE PROXIMAL DIAGNOSTIC Recall History of [...] Vaccine: 65+ Years Completed 07/31/2019, 12/20/2017, 04/04/2005 Hepatitis C Screening Completed 12/27/2019, 017 Zoster Vaccines Completed 03/15/2022, 01/04/2022 HPV (Gardasil) Vaccine Aged Out No lo nger eligible based on patient's age to complete this topic Hepatitis B Vaccine Aged Out No longe r eligible based on patient's age to complete this topic MENINGOCOCCAL (MENACTRA/MENVEO) Aged Out No longer eligible based on patient's age to complete this topic documented as of this encounter Medical Devices Implanted Type Area Leisure Travel Agent Device Identifier Shelf Expiration Date Model / Serial / Lot Cable Accessory 3550-31 - [id number] Implanted:Qty : 1 on 09/04/2009 at [place] [facility] N/A: Spine Thoracic [employer] : NEUROLOGIC PAIN 06/22/2013 [id number] / / [id number] Description:Titan anchor acc essory kit 3550-39 Lead Kit 73928-84 - [id number] Implanted:Qty : 1 on 09/04/2009 at [place] [facility] N/A: Spine Thoracic [employer] : NEUROLOGIC PAIN 04/30/2013 [id number] / / [id number] Description:medtronic specif y 5-6-5 lead kit for spinal cord stimulation. Lens 19.5 [id number] - [id number] Implanted:Qty : 1 on 12/25/2015 by Juan Childers MD at OR [facility] Left: Eye JOSEPH : SURGICAL 01/13/2017 [id number] / / Patch Sm Vent Hernia [id number] - [id number] Implanted:Qty : 1 on 04/14/2016 by Linda Peña DO at OR [facility] N/A: Abdomen CR BARD : DAVOL 11/11/2018 [id number] / / [id number] Lens 20.0 [id number] - [id number] - [id number] Implanted:Qty : 1 on 06/29/2018 by Juan Childers MD at OR [facility] Right: Eye JOSEPH : SURGICAL 12/14/2021 [id number] / [id number] / documented as of this encounter Advance [...]
[2024-02-20] MEDS: SODIUM CHLORIDE 0.9% 1,000 ML IV ONE (09:37)
--- NOTE | 2024-02-20 10:02 | CT Scan Report ---
CT SCAN OF THE LUMBAR SPINE WITHOUT IV CONTRAST CLINICAL HISTORY: Fall. Recent lumbar surgery. COMPARISON STUDY: No priors. TECHNIQUE: CT scan of the lumbar spine is performed from the lower thoracic spine to the sacrum. Imag es are reviewed in the axial, sagittal, and coronal planes. IV contrast was not administered for this examination. A dose lowering technique was utilized adhering to the principles of ALARA. The examina tion is degraded by large body habitus, and by streak artifact from the body wall, abutting the CT en try. There is also streak artifact from multilevel metallic spinal hardware. FINDINGS: The skeletal structures are osteopenic. There is no evidence of acute fracture or malalignm ent involving the lumbar spine. Vertebral body height and alignment are maintained. Anterior and late ral marginal osteophytes are seen throughout. There has been discectomy at L2-L3 and L5-S1 with nikhil ectomy and posterior fusion at L2-S1. Interpedicular screws are present at all levels. The orthopedic hardware appears intact. The transverse processes appear intact. No lytic or blastic lesion is seen. There is lpjerwju-ih-zeizjk disc space narrowing at L3-L4. The remaining disc spaces appear maintain ed. There is no CT evidence of large disc herniation or high-grade central canal stenosis. Note that this is not well assessed due to significant streak artifact. Postoperative change is seen posterior to the thecal sac at the operative levels. Tiny foci of gas around the spinal canal at L2 are likely related to recent surgery. There is fatty atrophy of the paraspinous musculature. Imaged portions of the sacrum and bony pelvis appear intact. IMPRESSION: 1. No acute bony abnormality is seen involving the lumbar spine. 2. Osteopenia with postsurgical and spondylotic change as above. ACT 112: Negative or not required by law. Dictated: 02/20/2024 9:05 AM Transcribed: 02/20/2024 9:15 AM Fredy [id number] [email or web address] Electronically signed by: Prosper Davalos M.D. 02/20/2024 10:01 AM
--- NOTE | 2024-02-20 11:08 | History & Physical Report ---
Date of Service February 20, 2024 Assessment & Plan (1) Neurogenic claudication due to lumbar spinal stenosis: (2) S/P spinal surgery: (3) Fall: (4) HTN (hypertension): (5) Hyperlipidemia: (6) COPD (chronic obstructive pulmonary disease): (7) Sleep apnea: (8) Gastroesophageal reflux: (9) Kay's esophagus: (10) IBS (irritable bowel syndrome): (11) DM (diabetes mellitus), type 2: Plan: This is a 73yo F with a PMH of DM II, history of provoked PE in Jul 2023 no longer on anticoagulation, HTN, BHAVIN, COPD s/p removal of posterior instrumentation L4-S1, exploration of fusion L4-S1, revision decompression with bilateral medial facetectomies and foraminotomies L2-L3 L3-L4 and posterior spinal fusion L2-L4 by Dr. Sapp last week, subsequently went home and suffered a fall. Acute Fall AMS POD#6 s/p removal of posterior instrumentation L4-S1, exploration of fusion L4- S1, revision decompression with bilateral medial facetectomies and foraminotomies L2-L3 L3-L4 and posterior spinal fusion L2-L4 by Dr. Sapp Admit to med surg w tele Possible that polypharmacy has caused increased fall risk with tramadol and oxycodone at home, then given fentanyl 25 mcg IV en route to hospital ? Will inform ortho spine that the pt returned, CT head and lumbar spine are negative today. Repeat CT head in 4 hours with AMS. Due to the patient's significant claustrophobia and previously requiring sedation for an MRI of the brain, it will be difficult to obtain this imaging with her AMS at this time. If AMS improves and she is able to have MRI then this would be best imaging study. Consult neurology may consider MRI spine if back pain worsened Monitor H&H (pre-op hgb 11.4, EBL 300ml). Repeat CBC last monday was 9.1, today is 11.0 PT/OT eval HTN HLD Con HCTZ continue losartan and Toprol Continue statin COPD BHAVIN At baseline. Continue albuterol inhaler PRN Does not use CPAP GERD Kay's esophagus Continue PPI Pulmonary embolism Elevated homocysteine H/o PE in July thought to have been provoked by covid. Followed with heme onc and underwent hypercoag work up which was only positive for homocysteine. No longer on anticoagulation as per direction from heme onc DM (diabetes mellitus), type 2 A1c 6.1 on 02/06/24 Not on home meds SSI while in-patient -- allow diet this evening pending she is more alert and not confused, aspiration precautions BSG AC HS Hypothyroidism Continue levothyroxine DVT ppx: teds, scds Lines: PIV x 1 FEN/GI: HH/DM diet CODE: Full Dispo: From home, likely to remain in the hospital x 1-2 days A total of 76 minutes were spent with greater than 50% of that time face to face with the patient, personally reviewing all current laboratories, imaging studies, past medication reconciliation, outpatient chart review, and discussion with specialists to collaborate care for the patient with attending. Please see attending documentation for corrections and/or additions. History of Present Illness Chief Complaint: Fall, confusion Primary Care Provider: ELVIRA Mancia This is a 73 yo F with PMhx of DM II, history of provoked PE in Jul 2023 no longer on anticoagulation, HTN, BHAVIN, COPD and other medical problems listed below who is POD#6 s/p removal of posterior instrumentation L4-S1, exploration of fusion L4-S1, revision decompression with bilateral medial facetectomies and foraminotomies L2-L3 L3-L4 and posterior spinal fusion L2-L4 by Dr. Sapp on 02/13/24. She did well postoperatively and was discharged home 3 days ago. Pt returns to the hospital today after and unwitnessed fall at home this morning around 6am. Pt lives at home with her son, who is not present at bedside, but is here with her daughter and son-in-law. They report that she is significantly confused this morning, she has difficulty even responding to some questions, appears to be dazed, staring off, slow to respond, has some diffuse muscular twitching at times throughout her whole body. Family denies any history of seizure. Patient herself cannot recall that she was even in the hospital at one moment last week, and then asked if she has been here for an entire week in the hospital. She follows commands however needs reorientation and is asked anywhere between 1-4 times to have her respond appropriately. The only thing the pt can express is that she " was taking the dog out", but cannot provide any other pertinent information to her fall and can neither confirm nor deny injury to her head. I discussed having possible MRI of her brain as well as a neurology consult which they are okay with. Family mentions that in order for her to have an MRI she is significantly claustrophobic and has previously required sedation, only was able to be performed at [facility] in the past. After dc last Monday, whe did go home with narcotic medication including tramadol and oxycodone. Patient was given 1 dose of IV fentanyl and EMS en route to the hospital this morning. She is slightly confused, not oriented to time but is to self and place. Negative imaging includes CT of the head and lumbar spine. She does not have any acute lab abnormalities except some mild dehydration and AL with Cr. of 1.7 today compared to a baseline of 0.8. Allergies Allergy/AdvReac Type Severity Reaction Status Date / Time alprazolam AdvReac Mild Hallucinati Verified 02/13/24 06:47 ons baclofen AdvReac Mild Nausea Verified 02/13/24 06:47 ibuprofen AdvReac Mild Nausea Verified 02/13/24 06:47 lorazepam [From Ativan] AdvReac Mild Nausea Verified 02/13/24 06:47 Home Medications Medication Instructions Recorded Confirmed Type albuterol sulfate 90 mcg/actuation 2 puffs inhalation Q4H PRN 01/02/19 02/20/24 Rx aerosol inhaler shortness of breath or wheezing #18 grams lidocaine 5 % topical ointment See Rx Instructions topical TID 04/23/19 02/20/24 History PRN Pain blood sugar diagnostic (OneTouch #100 ea 04/24/19 02/20/24 Rx Ultra Blue Test Strip) blood-glucose meter (OneTouch #1 ea 04/24/19 02/20/24 Rx Ultra2 Meter kit) lancets 33 gauge (OneTouch Delica #100 ea 04/24/19 02/20/24 Rx Lancets) losartan 100 1 tab PO QPM 05/28/19 02/20/24 History mg-hydrochlorothiazide 25 mg tablet metoprolol succinate 50 mg 50 mg PO QAM 05/28/19 02/20/24 History tablet,extended release 24 hr (Toprol XL) trazodone 50 mg tablet 50 - 100 mg (1 - 2 x 50 mg) PO HS 05/29/19 02/20/24 Rx PRN sleep #60 tabs atorvastatin 40 mg tablet 40 mg PO HS 01/30/24 02/20/24 History folic acid 5 mg capsule 5 mg PO QAM 01/30/24 02/20/24 History gabapentin 600 mg tablet 400 mg PO TID PRN Pain 01/30/24 02/20/24 History levothyroxine 25 mcg tablet 25 mcg PO QAM 01/30/24 02/20/24 History (Levoxyl) mometasone 50 mcg/actuation nasal 2 sprays intranasal DAILY PRN 01/30/2402/19 History spray allergies omeprazole 40 mg capsule,delayed 40 mg PO QAM 01/30/24 02/20/24 History release tizanidine 4 mg tablet 4 mg PO TID PRN muscle spasms 01/30/24 02/20/24 History venlafaxine 150 mg 150 mg PO QAM 01/30/24 02/20/24 History capsule,extended release 24 hr (Effexor XR) oxycodone 5 mg tablet 5 mg PO Q6H PRN pain #30 tabs 02/14/24 02/20/24 Rx tramadol 50 mg tablet 50 mg PO Q6H PRN pain, moderate 02/14/24 02/20/24 Rx #30 tabs meclizine 25 mg tablet 25 mg PO TID PRN Dizziness 02/20/24 02/20/24 History Past Med/Surg History Problem List (Updated 02/20/24 @ 11:50 by Tony Chaves DO) AL (acute kidney injury) (Acute) Fall Acute blood loss as cause of postoperative anemia S/P spinal surgery DM (diabetes mellitus), type 2 Neurogenic claudication due to lumbar spinal stenosis Lumbar radiculopathy, acute Kay's esophagus (Chronic) HTN (hypertension) (Chronic) IBS (irritable bowel syndrome) (Chronic) Lumbar disc disease (Chronic) Osteoarthritis of both knees (Chronic) Osteoarthritis of wrist (Chronic) Vitamin B12 deficiency (Chronic) Insomnia Gastroesophageal reflux Sleep apnea Vitamin D deficiency Hyperlipidemia COPD (chronic obstructive pulmonary disease) Benign essential hypertension Medical History (Updated 02/20/24 @ 11:50 by Tony Chaves DO) 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 per [facility] Heme/onc Pulmonary embolism (~07/2023) Hx of irritable bowel syndrome Hiatal hernia Lumbar disc disease Hyperlipidemia Hypothyroidism Diabetes mellitus Diet controlled Benign essential hypertension Sleep apnea No device Asthma Hx of colonic polyps Barretts esophagus COPD (chronic obstructive pulmonary disease) Patient states she was told by pulmonary that she had asthma (not COPD) Per remote [facility] pulmonary records in 2018, possible patient may only have asthma based on spirometry findings, COPD diagnosis still listed in [facility] records since GERD (gastroesophageal reflux disease) Surgical History (Updated 02/13/24 @ 14:02 by Lori Soto PA-C) History of postoperative nausea and vomiting Hx of colonoscopy with polypectomy Hx of hernia repair abdominal Hx of hand surgery 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 05/08 - left thumb History of bilateral carpal tunnel release Hx of lumbosacral spine surgery x3 L4-L5 Hx of hysterectomy Hx of cholecystectomy Hx of tonsillectomy (1961) x2 Family History Other COPD (chronic obstructive pulmonary disease) Diabetes Social History Smoking Status: Never smoker Age Started Using Tobacco: 15; Age Quit Using Tobacco: 45; packs per day: 1.5; Cigarettes Per Day: 30; Second Hand Exposure: No; Do You Dip or Chew Tobacco: No; Hx Alcohol Use: Yes Alcohol Intake Frequency: 2-4 x/Month Hx Substance Use: No Preferred Language: Polish Communication Ability: Effective Communication Ability Comment: Good Visual Impairment: No Limitations Hearing Ability: Normal Production Control Coordinating Clerk Required: No Beliefs That Will Affect Care: None Current Living Situation: Family Feels Safe at Home: Yes Dental Care, Regularly: Yes Physical Activity Frequency: Does not Exercise Seatbelt Use: always Sunscreen Use: Yes Assistive Devices: Cane and Walker Review of Systems Review of Systems: Unobtainable due to cognitive status Physical Exam Physical Exam: General: awake, alert to self, not oriented, no apparent distress Head: Normocephalic, atraumatic ENT: PERRL, +pinpoint, EOMI, no pharyngeal exudate, mucous membranes moist Chest: Clear to auscultation, on room air, no adventitious breath sounds Cardiac: Regular rate and rhythm, no murmur, no JVD, normal peripheral pulses, good capillary refill Back: incision site is healing well, steristrips intact, no surrounding erythema, areas of drainage or purulence, no tenderness with palpation laterally to the incision. Abdominal: NABS x 4 quadrants, soft, nondistended, nontender to palpation, no rebound or guarding Extremities: Normal inspection, no peripheral edema or erythema, calfs nontender to palpation Psych: Normal mood and affect Neuro: oriented to self only, not date or time, cannot support the history, cannot recall specific events, , strength intact bilaterally and rated 5/5, no motor deficits, speech is clear, no peripheral sensory deficits Results & Data Results & Data Vital Signs (Past 12 Hours) Vital Signs Temp Pulse Pulse Resp BP BP Pulse Ox 02/20/24 08:36 86 16 94 02/20/24 08:03 86 16 135/86 94 02/20/24 08:03 36.8 C 86 16 135/86 94 O2 Del Method 02/20/24 08:36 Room Air 02/20/24 08:03 Room Air 02/20/24 08:03 Room Air Laboratory Results 02/20/24 08:25 WBC 10.61 RBC 3.85 L Hgb 11.0 L Hct 33.9 L MCV 88.1 MCH 28.6 MCHC 32.4 RDW Std Deviation 42.6 RDW Coeff of Starr 13.2 Plt Count 235 MPV 11.0 Immature Gran % (Auto) 0.8 Neut % (Auto) 72.0 Lymph % (Auto) 13.0 [place] % (Auto) 10.9 Eos % (Auto) 2.8 Baso % (Auto) 0.5 Neut # (Auto) 7.64 H Lymph # (Auto) 1.38 [place] # (Auto) 1.16 H Eos # (Auto) 0.30 Baso # (Auto) 0.05 Immature Gran # (Auto) 0.08 PT 10.2 INR 0.9 Sodium 137 Potassium 4.0 Chloride 100 Carbon Dioxide 28 Anion Gap 9 BUN 17 Creatinine 1.72 H Est Cr Clr Drug Dosing 30.4 Est GFR ( Amer) 34.1 Est GFR (Non-Af Amer) 29.4 BUN/Creatinine Ratio 9.9 L Glucose 141 H Calcium 8.7 Total Bilirubin 0.5 AST 12 L ALT 7 Alkaline Phosphatase 83 Troponin I High Sens 4.3 Total Protein 6.9 Albumin 3.6 Globulin 3.3 Albumin/Globulin Ratio 1.1 Lipase 19 Diagnostic Findings Chest X-Ray 02/20/24 08:36 SINGLE VIEW CHEST CLINICAL HISTORY: Atypical chest pain. FINDINGS: An AP, portable, upright chest radiograph is obtained. No prior studies are available for comparison at the time of dictation. The cardiomediastinal silhouette is top normal for projection. There is mild bibasilar atelectasis. The lungs and pleural spaces are otherwise clear. No pneumothorax is seen. The skeletal structures are osteopenic. The bony thorax is grossly intact. IMPRESSION: No active disease in the chest. ACT 112: Negative or not required by law. Electronically signed by: Prosper Davalos M.D. 02/20/2024 8:[address] 02/20/24 08:36 CT OF THE HEAD WITHOUT CONTRAST CLINICAL HISTORY: fall COMPARISON STUDY: No previous studies for comparison. CT DOSE: 1600.2 mGy.cm TECHNIQUE: Helical axial images of the head were obtained without IV contrast. Automated exposure control was utilized for the study. A dose lowering technique was utilized adhering to the principles of ALARA. FINDINGS: No acute intracranial hemorrhage, midline shift or mass effect is present. White matter hypodensities favor small vessel disease. The ventricular system is unremarkable. The basal cisterns are patent. No extra-axial collections are present. There are no findings to suggest acute dural sinus thrombosis or acute territorial infarct. No significant calvarial abnormalities are present. Visualized portions of the sinuses and mastoid air cells are clear. IMPRESSION: 1. No acute intracranial findings. 2. No calvarial fractures. ACT 112: Negative or not required by law. Electronically signed by: Ayden Fraser M.D. 02/20/2024 9:[address] 02/20/24 08:36 CT SCAN OF THE LUMBAR SPINE WITHOUT IV CONTRAST CLINICAL HISTORY: Fall. Recent lumbar surgery. COMPARISON STUDY: No priors. TECHNIQUE: CT scan of the lumbar spine is performed from the lower thoracic spine to the sacrum. Images are reviewed in the axial, sagittal, and coronal planes. IV contrast was not administered for this examination. A dose lowering technique was utilized adhering to the principles of ALARA. The examination is degraded by large body habitus, and by streak artifact from the body wall, abutting the CT entry. There is also streak artifact from multilevel metallic spinal hardware. FINDINGS: The skeletal structures are osteopenic. There is no evidence of acute fracture or malalignment involving the lumbar spine. Vertebral body height and alignment are maintained. Anterior and lateral marginal osteophytes are seen throughout. There has been discectomy at L2-L3 and L5-S1 with laminectomy and posterior fusion at L2-S1. Interpedicular screws are present at all levels. The orthopedic hardware appears intact. The transverse processes appear intact. No lytic or blastic lesion is seen. There is [id number] disc space narrowing at L3-L4. The remaining disc spaces appear maintained. There is no CT evidence of large disc herniation or high-grade central canal stenosis. Note that this is not well assessed due to significant streak artifact. Postoperative change is seen posterior to the thecal sac at the operative levels. Tiny foci of gas around the spinal canal at L2 are likely related to recent surgery. There is fatty atrophy of the paraspinous musculature. Imaged portions of the sacrum and bony pelvis appear intact. IMPRESSION: 1. No acute bony abnormality is seen involving the lumbar spine. 2. Osteopenia with postsurgical and spondylotic change as above. ACT 112: Negative or not required by law. Dictated: 02/20/2024 9:05 AM Transcribed: 02/20/2024 9:15 AM Fredy [id number] [email or web address] Electronically signed by: Prosper Davalos M.D. 02/20/2024 10:01 AM Code Status & VTE Plan Code Status Full code - discussed with family at bedside Supervising Physician Co-Signing Physician Notes Pt was seen and examined by myself, Rae Choi MD on the day of service. Care was coordinated with Farzana Viveros PA-C. 73yoF with Hx of recent lumbar decompression with fusion and hardware removal presenting with AMS and a fall at home. Per family present, fall unwitnessed. Has been altered for the past day, also received fentanyl given by EMS en route to the hospital. Pt lethargic on exam, responds after significant verbal and touch stimuli. Knows her name and that she is in the hospital. Head CT unremarkable, brain MRI ordered. Per family, pt has significant claustrophobia, notes she needs to "be put to sleep" to get it done. Given AMS, with recent administration of fentanyl en route, would avoid further administration of benzos for MRI. Repeat head CT in 4 hours at this time Hold home sedating meds. For noted AL, hold home losartan-hctz, gentle fluid hydration. Otherwise as above. I spent a total [id number] coordinating, documenting, and providing care for this patient excluding time spent in the performance of separately billed services
[2024-02-20 11:24] LABS: Appearance Urine Clear (Clear); Bacteria Urine Automated None Seen (None Seen); Bilirubin Urine Negative (Negative); Blood Urine Negative (Negative); Cast Urine Automated 0-2 /lpf (0-2); Color Urine Yellow; Epithelial Cell Urine Auto 0-2 /hpf (0-2); Glucose Urine UA Negative (Negative); Ketones Urine Negative (Negative); Leukocyte Esterase Urine Negative (Negative); Nitrite Urine Negative (Negative); Protein Urine Trace (Negative); RBC Urine Automated 0-2 /hpf (0-2); Specific Gravity Urine 1.008 (1.000-1.030); Urobilinogen Urine Negative (Negative); WBC Urine Automated 0-5 /hpf (0-5)
[2024-02-20] MEDS: SODIUM CHLORIDE 0.9% 1,000 ML IV SCH (11:55)
[2024-02-20] MEDS ORDERED: GLUCAGON FOR INJ 1 MG VIAL SQ PRN (14:50)
[2024-02-20] MEDS ORDERED: CARBOHYDRATES FOR HYPOGLYCEMIA PO PRN (14:50)
[2024-02-20] MEDS ORDERED: DEXTROSE 50% 50 ML SYRINGE IV PRN (14:50)
[2024-02-20] MEDS ORDERED: GLUCOSE 40% GEL 15 GM TUBE PO PRN (14:50)
[2024-02-20] MEDS ORDERED: GLUCOSE 10 TAB/TUBE PO PRN (14:50)
[2024-02-20] MEDS: ACETAMINOPHEN 500 MG TAB PO SCH (15:18)
--- NOTE | 2024-02-20 16:27 | CT Scan Report ---
CT OF THE HEAD WITHOUT CONTRAST CLINICAL HISTORY: Repeat CT in 4 hrs, AMS COMPARISON STUDY: Head CT performed earlier today. CT DOSE: 547.75 mGy.cm TECHNIQUE: Helical axial images of the head were obtained without IV contrast. Automated exposure con trol was utilized for the study. A dose lowering technique was utilized adhering to the principles o f ALARA. FINDINGS: No acute intracranial hemorrhage, midline shift or mass effect is present. White matter hyp odensities favor small vessel disease. The ventricular system is unremarkable. The basal cisterns are patent. No extra-axial collections are present. There are no findings to suggest acute dural sinus t hrombosis or acute territorial infarct. No significant calvarial abnormalities are present. Visualize d portions of the sinuses and mastoid air cells are clear. IMPRESSION: No acute intracranial findings. ACT 112: Negative or not required by law. Electronically signed by: Ayden Fraser M.D. 02/20/2024 4:24 PM
--- NOTE | 2024-02-20 17:27 | Electrocardiogram Report ---
Test Reason : Blood Pressure : */* mmHG Vent. Rate : 76 BPM Atrial Rate : 76 BPM P-R Int : 140 ms QRS Dur : 102 ms QT Int : 414 ms P-R-T Axes : 2 -20 39 degrees QTcB Int : 465 ms Normal sinus rhythm Moderate voltage criteria for LVH, may be normal variant Nonspecific ST abnormality Abnormal ECG No previous ECGs available Confirmed by Eugene Stanley ([id number]) on 02/20/2024 5:27:11 PM Referred By: Confirmed By: Eugene Stanley
[2024-02-20] MEDS: INSULIN ASPART PER UNIT CHARGE SC SCH (18:04)
--- NOTE | 2024-02-20 19:29 | Neurology Consultation ---
Date of Consultation February 20, 2024 Assessment & Plan (1) Confusion and disorientation: Her exam is nonfocal, the patient appears to be encephalopathic, with perseveration, she has asterixis of the upper extremities. Plan Recommend to discontinue tramadol, decrease gabapentin to 300 mg 3 times daily. Provide oxycodone only for severe pain if needed will try to avoid it. No underlying infections noted. Recommend an EEG As mental status changes persisted can obtain an MRI Telehealth Consultation Telehealth Information Telehealth Information: I performed this visit using a real-time telehealth connection between my location and the patients location ([facility]). After connecting through interactive tele-video, patient was identified by name and date of and/or wristband check.Patient (or authorized healthcare risk control representative) was informed that this was a telemedicine visit and it was being conducted confidentially over secure lines. My office door was closed and no one else was present in the room with me.Patient (or authorized healthcare risk control representative) provided consent to proceed with the visit, expressed an underst anding of privacy and security of the telemedicine visit, and gave permission to have a hospital risk control representative in the room in order to assist with the visit and to conduct portions of the visit, as needed. I informed the patient (or authorized healthcare risk control representative) that I reviewed their record and presented the opportunity for them to ask any questions regarding the visit today. The patient agreed to participate. History of Present Illness Reason for Consultation: Confusion , unwitnessed fall Requesting Physician: Rae Choi MD Attending Physician: Rae Choi MD History of Present Illness 73-year-old female patient with PMH of lumbar spinal stenosis with neurogenic claudications status post spinal surgery 02/12 was maintained on oxycodone and g abapentin in addition to tramadol. And tizanidine Depression maintained on venlafaxine, trazodone,. Also PMH of HTN, COPD, IBS, T2DM, history of PE thought to be provoked by COVID the patient is currently not on anticoagulation. Presented to the ED after an unwitnessed fall today associated with confusion this morning, she follows commands but needed reorientation, was able to say that she was taking the dog out but cannot provide any further history Allergies Allergy/AdvReac Type Severity Reaction Status Date / Time alprazolam AdvReac Mild Hallucinati Verified 07/30/24 06:47 ons baclofen AdvReac Mild Nausea Verified 02/13/24 06:47 ibuprofen AdvReac Mild Nausea Verified 02/13/24 06:47 lorazepam [From Ativan] AdvReac Mild Nausea Verified 02/13/24 06:47 Home Medications Medication Instructions Recorded Confirmed Type albuterol sulfate 90 mcg/actuation 2 puffs inhalation Q4H PRN 01/02/19 02/20/24 Rx aerosol inhaler shortness of breath or wheezing #18 grams lidocaine 5 % topical ointment See Rx Instructions topical TID 04/23/19 02/20/24 History PRN Pain blood sugar diagnostic (OneTouch #100 ea 04/24/19 02/20/24 Rx Ultra Blue Test Strip) blood-glucose meter (OneTouch #1 ea 04/24/19 02/20/24 Rx Ultra2 Meter kit) lancets 33 gauge (OneTouch Delica #100 ea 04/24/19 02/20/24 Rx Lancets) losartan 100 1 tab PO QPM 05/28/19 02/20/24 History mg-hydrochlorothiazide 25 mg tablet metoprolol succinate 50 mg 50 mg PO QAM 05/28/19 02/20/24 History tablet,extended release 24 hr (Toprol XL) trazodone 50 mg tablet 50 - 100 mg (1 - 2 x 50 mg) PO HS 05/29/19 02/20/24 Rx PRN sleep #60 tabs atorvastatin 40 mg tablet 40 mg PO HS 01/30/24 02/20/24 History folic acid 5 mg capsule 5 mg PO QAM 01/30/24 02/20/24 History gabapentin 600 mg tablet 400 mg PO TID PRN Pain 01/30/24 02/20/24 History levothyroxine 25 mcg tablet 25 mcg PO QAM 01/30/24 02/20/24 History (Levoxyl) mometasone 50 mcg/actuation nasal 2 sprays intranasal DAILY PRN 01/30/24 02/20/24 History spray allergies omeprazole 40 mg capsule,delayed 40 mg PO QAM 01/30/24 02/20/24 History release tizanidine 4 mg tablet 4 mg PO TID PRN muscle spasms 01/30/24 02/20/24 History venlafaxine 150 mg 150 mg PO QAM 01/30/24 02/20/24 History capsule,extended release 24 hr (Effexor XR) oxycodone 5 mg tablet 5 mg PO Q6H PRN pain #30 tabs 02/14/24 02/20/24 Rx tramadol 50 mg tablet 50 mg PO Q6H PRN pain, moderate 02/14/24 02/20/24 Rx #30 tabs meclizine 25 mg tablet 25 mg PO TID PRN Dizziness 02/20/24 02/20/24 History Patient History Medical History (Updated 02/20/24 @ 19:43 by Marcin Prakash MD) 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 per [facility] Heme/onc Pulmonary embolism (~07/2023) Hx of irritable bowel syndrome Hiatal hernia Lumbar disc disease Hyperlipidemia Hypothyroidism Diabetes mellitus Diet controlled Benign essential hypertension Sleep apnea No device Asthma Hx of colonic polyps Barretts esophagus COPD (chronic obstructive pulmonary disease) Patient states she was told by pulmonary that she had asthma (not COPD) Per remote [facility] pulmonary records in 2018, possible patient may only have asthma based on spirometry findings, COPD diagnosis still listed in [facility] records since GERD (gastroesophageal reflux disease) Surgical History (Updated 02/13/24 @ 14:02 by Lori Soto PA-C) History of postoperative nausea and vomiting Hx of colonoscopy with polypectomy Hx of hernia repair abdominal Hx of hand surgery 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 05/08 - left thumb History of bilateral carpal tunnel release Hx of lumbosacral spine surgery x3 L4-L5 Hx of hysterectomy Hx of cholecystectomy Hx of tonsillectomy (1961) x2 Family History Other COPD (chronic obstructive pulmonary disease) Diabetes Social History Smoking Status: Former smoker Age Started Using Tobacco: 15; Age Quit Using Tobacco: 45; packs per day: 1.5; Cigarettes Per Day: 30; Second Hand Exposure: No; Do You Dip or Chew Tobacco: No; Hx Alcohol Use: Yes Alcohol Intake Frequency: 2-4 x/Month Hx Substance Use: No Preferred Language: Maldivian Communication Ability: Effective Communication Ability Comment: Good Visual Impairment: No Limitations Hearing Ability: Normal Watch Hairspring Assembler Required: No Beliefs That Will Affect Care: None Current Living Situation: Family Other Information That Helps Us Care for You: No Feels Safe at Home: Yes Safety Concerns: Feels Safe At This Time Dental Care, Regularly: Yes Physical Activity Frequency: Does not Exercise Seatbelt Use: always Sunscreen Use: Yes Assistive Devices: Denture - Upper and Glasses Review of Systems unable to obtain due to confusion Physical Exam General Constitutional: Appearance normally developed Head and face: normocephalic and atraumatic Eyes: no ptosis, no anisocoria, and no dysconjugate gaze Respiratory: normal effort Cardiovascular: regular rhythm and regular rate Abdomen: non distended Skin: no rashes, lesions, or ulcers noted Psychiatric: normal judgement and insight, normal mood, and normal affect NEUROLOGIC EXAMINATION: Mental Status:alert,Oriented to place, knows she is in the hospital, is not oriented to date, appears confused about current events, needs prompting to answer questions, she has some verbal perseveration Cranial Nerves: CN 2 - no visual defect on confrontation and pupils round, equal, reactive to l ight CN 3, 4, 6 - extra-ocular movements intact and no nystagmus CN 5 - facial sensation intact CN 7 - no facial asymmetry CN 8 - intact hearing CN 9, 10 - palate symmetric, normal gag CN 11 - good shoulder shrug CN 12 - tongue midline MOTOR: Strength was at least antigravity throughout, Pronator drift was absent , she has Asterexis SENSATION: intact and symmetric to pinprick, light touch, vibration and joint position GAIT: deferred COORDINATION: no ataxia with finger to nose testing and heel to flores testing REFLEXES: cannot assess over telemedicine Results & Data Vital Signs (Past 12 Hours) Vital Signs Temp Pulse Pulse Pulse Resp BP BP 02/20/24 17:58 02/20/24 17:37 36.6 C 75 16 142/80 H 02/20/24 16:30 63 16 117/71 02/20/24 15:00 66 16 141/69 H 02/20/24 14:00 129/62 02/20/24 14:00 65 16 02/20/24 13:33 63 16 02/20/24 13:30 113/57 L 02/20/24 13:30 113/57 L 02/20/24 13:30 113/57 L 02/20/24 13:21 64 14 02/20/24 13:09 64 12 02/20/24 13:00 123/62 02/20/24 13:00 123/62 02/20/24 13:00 63 16 130/64 02/20/24 12:54 66 14 02/20/24 12:39 68 14 02/20/24 12:30 113/65 02/20/24 12:24 71 12 02/20/24 12:00 130/96 02/20/24 12:00 130/96 02/20/24 12:00 68 12 02/20/24 11:30 131/75 02/20/24 11:30 74 14 02/20/24 11:25 78 18 126/59 L 02/20/24 11:15 78 16 02/20/24 11:00 126/59 L 02/20/24 11:00 126/59 L 02/20/24 10:54 72 12 02/20/24 10:39 72 13 02/20/24 10:30 134/70 02/20/24 10:30 134/70 02/20/24 10:30 134/70 02/20/24 10:25 140/78 02/20/24 10:15 68 14 02/20/24 10:06 68 17 02/20/24 10:00 92/58 L 02/20/24 09:54 68 18 02/20/24 09:53 103/56 L 02/20/24 09:53 103/56 L 02/20/24 09:36 71 13 02/20/24 09:33 71 15 02/20/24 09:12 76 11 L 02/20/24 08:36 86 16 02/20/24 08:33 79 18 02/20/24 08:20 135/86 02/20/24 08:03 86 16 135/86 02/20/24 08:03 36.8 C 86 16 135/86 Pulse Ox O2 Del Method 02/20/24 17:58 Room Air 02/20/24 17:37 98 Room Air 02/20/24 16:30 95 Room Air 02/20/24 15:00 95 Room Air 02/20/24 14:00 02/20/24 14:00 94 02/20/24 13:33 92 02/20/24 13:30 02/20/24 13:30 02/20/24 13:30 02/20/24 13:21 92 02/20/24 13:09 92 02/20/24 13:00 02/20/24 13:00 02/20/24 13:00 92 Room Air 02/20/24 12:54 92 02/20/24 12:39 02/20/24 12:30 02/20/24 12:24 02/20/24 12:00 02/20/24 12:00 02/20/24 12:00 02/20/24 11:30 02/20/24 11:30 02/20/24 11:25 96 02/20/24 11:15 97 02/20/24 11:00 02/20/24 11:00 02/20/24 10:54 95 Room Air 02/20/24 10:39 96 02/20/24 10:30 02/20/24 10:30 02/20/24 10:30 02/20/24 10:25 02/20/24 10:15 92 02/20/24 10:06 92 02/20/24 10:00 02/20/24 09:54 93 02/20/24 09:53 02/20/24 09:53 02/20/24 09:36 93 02/20/24 09:33 93 02/20/24 09:12 93 02/20/24 08:36 94 Room Air 02/20/24 08:33 95 02/20/24 08:20 02/20/24 08:03 94 Room Air 02/20/24 08:03 94 Room Air Laboratory Results Laboratory Results - last 24 hr 02/20/24 02/20/24 02/20/24 08:25 17:31 Unknown WBC 10.61 RBC 3.85 L Hgb 11.0 L Hct 33.9 L MCV 88.1 MCH 28.6 MCHC 32.4 RDW Std Deviation 42.6 RDW Coeff of Starr 13.2 Plt Count 235 MPV 11.0 Immature Gran % (Auto) 0.8 Neut % (Auto) 72.0 Lymph % (Auto) 13.0 [place] % (Auto) 10.9 Eos % (Auto) 2.8 Baso % (Auto) 0.5 Neut # (Auto) 7.64 H Lymph # (Auto) 1.38 [place] # (Auto) 1.16 H Eos # (Auto) 0.30 Baso # (Auto) 0.05 Immature Gran # (Auto) 0.08 PT 10.2 INR 0.9 Sodium 137 Potassium 4.0 Chloride 100 Carbon Dioxide 28 Anion Gap 9 BUN 17 Creatinine 1.72 H Est Cr Clr Drug Dosing 30.4 Est GFR ( Amer) 34.1 Est GFR (Non-Af Amer) 29.4 BUN/Creatinine Ratio 9.9 L Glucose 141 H POC Glucose 102 H Calcium 8.7 Total Bilirubin 0.5 AST 12 L ALT 7 Alkaline Phosphatase 83 Troponin I High Sens 4.3 Total Protein 6.9 Albumin 3.6 Globulin 3.3 Albumin/Globulin Ratio 1.1 Lipase 19 Urine Color Yellow Urine Appearance Clear Urine pH 6.0 Ur Specific [place] 1.008 Urine Protein Trace H Urine Glucose (UA) Negative Urine Ketones Negative Urine Blood Negative Urine Nitrite Negative Urine Bilirubin Negative Urine Urobilinogen Negative Ur Leukocyte Esterase Negative Urine WBC (Auto) 0-5 Urine RBC (Auto) 0-2 U Hyaline Cast (Auto) 0-2 U Epithel Cells (Auto) 0-2 Urine Bacteria (Auto) None Seen Diagnostic Findings Chest X-Ray 02/20/24 08:36 SINGLE VIEW CHEST CLINICAL HISTORY: Atypical chest pain. FINDINGS: An AP, portable, upright chest radiograph is obtained. No prior studies are available for comparison at the time of dictation. The cardiomediastinal silhouette is top normal for projection. There is mild bibasilar atelectasis. The lungs and pleural spaces are otherwise clear. No pneumothorax is seen. The skeletal structures are osteopenic. The bony thorax is grossly intact. IMPRESSION: No active disease in the chest. ACT 112: Negative or not required by law. Electronically signed by: Prosper Davalos M.D. 02/20/2024 8:[address] 02/20/24 08:36 CT OF THE HEAD WITHOUT CONTRAST CLINICAL HISTORY: fall COMPARISON STUDY: No previous studies for comparison. CT DOSE: 1600.2 mGy.cm TECHNIQUE: Helical axial images of the head were obtained without IV contrast. Automated exposure control was utilized for the study. A dose lowering technique was utilized adhering to the principles of ALARA. FINDINGS: No acute intracranial hemorrhage, midline shift or mass effect is present. White matter hypodensities favor small vessel disease. The ventricular system is unremarkable. The basal cisterns are patent. No extra-axial collections are present. There are no findings to suggest acute dural sinus thrombosis or acute territorial infarct. No significant calvarial abnormalities are present. Visualized portions of the sinuses and mastoid air cells are clear. IMPRESSION: 1. No acute intracranial findings. 2. No calvarial fractures. ACT 112: Negative or not required by law. Electronically signed by: Ayden Fraser M.D. 02/20/2024 9:[address] 02/20/24 08:36 CT SCAN OF THE LUMBAR SPINE WITHOUT IV CONTRAST CLINICAL HISTORY: Fall. Recent lumbar surgery. COMPARISON STUDY: No priors. TECHNIQUE: CT scan of the lumbar spine is performed from the lower thoracic spine to the sacrum. Images are reviewed in the axial, sagittal, and coronal planes. IV contrast was not administered for this examination. A dose lowering technique was utilized adhering to the principles of ALARA. The examination is degraded by large body habitus, and by streak artifact from the body wall, abutting the CT entry. There is also streak artifact from multilevel metallic spinal hardware. FINDINGS: The skeletal structures are osteopenic. There is no evidence of acute fracture or malalignment involving the lumbar spine. Vertebral body height and alignment are maintained. Anterior and lateral marginal osteophytes are seen throughout. There has been discectomy at L2-L3 and L5-S1 with laminectomy and posterior fusion at L2-S1. Interpedicular screws are present at all levels. The orthopedic hardware appears intact. The transverse processes appear intact. No lytic or blastic lesion is seen. There is [id number] disc space narrowing at L3-L4. The remaining disc spaces appear maintained. There is no CT evidence of large disc herniation or high-grade central canal stenosis. Note that this is not well assessed due to significant streak artifact. Postoperative change is seen posterior to the thecal sac at the operative levels. Tiny foci of gas around the spinal canal at L2 are likely related to recent surgery. There is fatty atrophy of the paraspinous musculature. Imaged portions of the sacrum and bony pelvis appear intact. IMPRESSION: 1. No acute bony abnormality is seen involving the lumbar spine. 2. Osteopenia with postsurgical and spondylotic change as above. ACT 112: Negative or not required by law. Dictated: 02/20/2024 9:05 AM Transcribed: 02/20/2024 9:15 AM Fredy [id number] Electronically signed by: Prosper Davalos M.D. 02/20/2024 10:[address] 02/20/24 16:00 CT OF THE HEAD WITHOUT CONTRAST CLINICAL HISTORY: Repeat CT in 4 hrs, AMS COMPARISON STUDY: Head CT performed earlier today. CT DOSE: 547.75 mGy.cm TECHNIQUE: Helical axial images of the head were obtained without IV contrast. Automated exposure control was utilized for the study. A dose lowering technique was utilized adhering to the principles of ALARA. FINDINGS: No acute intracranial hemorrhage, midline shift or mass effect is present. White matter hypodensities favor small vessel disease. The ventricular system is unremarkable. The basal cisterns are patent. No extra-axial collections are present. There are no findings to suggest acute dural sinus thrombosis or acute territorial infarct. No significant calvarial abnormalities are present. Visualized portions of the sinuses and mastoid air cells are clear. IMPRESSION: No acute intracranial findings. ACT 112: Negative or not required by law. Electronically signed by: Ayden Fraser M.D. 02/20/2024 4:24 PM Medications Administered Home Medications Medication Instructions Recorded Confirmed Last Taken albuterol sulfate 90 mcg/actuation 2 puffs inhalation Q4H PRN 01/02/19 02/20/24 02/13/24 04:00 aerosol inhaler shortness of breath or wheezing #18 grams lidocaine 5 % topical ointment See Rx Instructions topical TID 04/23/19 02/20/24 02/10/24 22:00 PRN Pain blood sugar diagnostic (OneTouch #100 ea 04/24/19 02/20/24 Unknown Ultra Blue Test Strip) blood-glucose meter (OneTouch #1 ea 04/24/19 02/20/24 Unknown Ultra2 Meter kit) lancets 33 gauge (OneTouch Delica #100 ea 04/24/19 02/20/24 Unknown Lancets) losartan 100 1 tab PO QPM 05/28/19 02/20/24 02/12/24 18:00 mg-hydrochlorothiazide 25 mg tablet metoprolol succinate 50 mg 50 mg PO QAM 05/28/19 02/20/24 02/13/24 04:00 tablet,extended release 24 hr (Toprol XL) trazodone 50 mg tablet 50 - 100 mg (1 - 2 x 50 mg) PO HS 05/29/19 02/20/24 02/12/24 23:00 PRN sleep #60 tabs 100 mg atorvastatin 40 mg tablet 40 mg PO HS 01/30/24 02/20/24 02/12/24 17:00 folic acid 5 mg capsule 5 mg PO [facility] 01/30/24 02/20/24 02/12/24 08:00 gabapentin 600 mg tablet 400 mg PO TID PRN Pain 01/30/24 02/20/24 02/10/24 levothyroxine 25 mcg tablet 25 mcg PO QA 01/30/24 02/20/24 02/13/24 04:00 (Levoxyl) mometasone 50 mcg/actuation nasal 2 sprays intranasal DAILY PRN 01/30/24 02/20/24 02/12/24 17:00 spray allergies omeprazole 40 mg capsule,delayed 40 mg PO [facility] 01/30/24 02/20/24 02/13/24 04:00 release tizanidine 4 mg tablet 4 mg PO TID PRN muscle spasms 01/30/24 02/20/24 02/06/24 venlafaxine 150 mg 150 mg PO [facility] 01/30/24 02/20/24 02/13/24 04:00 capsule,extended release 24 hr (Effexor XR) oxycodone 5 mg tablet 5 mg PO Q6H PRN pain #30 tabs 02/14/24 02/20/24 Unknown tramadol 50 mg tablet 50 mg PO Q6H PRN pain, moderate 02/14/24 02/20/24 Unknown #30 tabs meclizine 25 mg tablet 25 mg PO TID PRN Dizziness 02/20/24 02/20/24 Unknown Active Medications Generic Name Dose Route Start Last Admin Trade Name Freq PRN Reason Stop Dose Admin Acetaminophen 1,000 mg 02/20/24 15:00 02/20/24 15:18 Acetaminophen 500 Mg Tab PO 03/21/24 14:59 1,000 mg Q8H CHRYSTAL Administration Insulin Aspart 0 units 02/20/24 16:30 02/20/24 18:04 Insulin Aspart Per Unit Charge SC 03/21/24 16:29 Not Given ACHS CHRYSTAL
[2024-02-20] MEDS: ATORVASTATIN 40 MG TAB PO SCH (22:24)
[2024-02-20] MEDS: HALOPERIDOL LACTATE 5 MG/ML 1 ML VIAL IM STA (22:24)
[2024-02-20] MEDS: HALOPERIDOL LACTATE 5 MG/ML 1 ML VIAL ONE (22:25)
[2024-02-20] MEDS: PANTOprazole 40 MG TAB PO SCH (22:25)
[2024-02-21] MEDS: LABETALOL HCL IV 5 MG/ML 20ML IV STA (02:32)
[2024-02-21] MEDS: LABETALOL HCL IV 5 MG/ML 20ML IV ONE (03:07)
[2024-02-21] MEDS: ACETAMINOPHEN 1,000 MG/100 ML VIAL IV STA (03:08)
[2024-02-21] MEDS: LEVOTHYROXINE SODIUM 25 MCG TABLET PO SCH (06:07)
[2024-02-21 06:57] LABS: Hematocrit (blood only) 28.9 % (37.0-47.0); Hemoglobin 9.5 g/dl (12.0-16.0); Mean Corpuscular Hemoglobin 28.8 pg (25.0-34.0); Mean Corpuscular Hgb Conc 32.9 g/dL (32.0-36.0); Mean Corpuscular Volume 87.6 fL (80.0-100.0); Mean Platelet Volume 10.7 fL (9.4-12.4); Platelet Count 224 K/uL (130-400); RDW Coefficient of Variation 13.1 % (11.5-14.5); RDW Standard Deviation 41.3 fL (36.4-46.3); White Blood Count 5.97 K/ul (4.8-10.8)
[2024-02-21 07:15] LABS: BUN Creatinine Ratio 11.4 (10-20); Calcium 8.4 mg/dl (8.6-10.3); Creatinine Clr Calc Pharmacy 31.5 ml/min; Est GFR (African American) 35.6 ml/min; Est GFR (Non-African American) 30.7 ml/min; Potassium 3.9 mmol/L (3.5-5.1)
[2024-02-21] MEDS: METOPROLOL SUCC 25MG EXT REL TAB PO SCH (08:46)
[2024-02-21] MEDS: VENLAFAXINE HCL XR 150 MG CAPXR PO SCH (08:46)
[2024-02-21] MEDS: FOLIC ACID 1 MG TAB PO SCH (08:47)
[2024-02-21] MEDS: GABAPENTIN 100 MG CAP PO SCH (10:48)
--- NOTE | 2024-02-21 12:08 | Hospitalist Progress Note ---
Date of Service February 21, 2024 Assessment & Plan (1) Acute metabolic encephalopathy: (2) AL (acute kidney injury): (3) Fall: (4) S/P spinal surgery: (5) HTN (hypertension): (6) Neurogenic claudication due to lumbar spinal stenosis: (7) COPD (chronic obstructive pulmonary disease): (8) DM (diabetes mellitus), type 2: Plan Patient with acute metabolic encephalopathy most likely due to medications used for pain control due to recent spinal surgery in the setting of acute kidney injury. Continue scheduled Tylenol for pain control, restart lower dose of Neurontin for better pain control Low-dose as needed oxycodone for pain control Continue therapies Monitor renal function, give some additional IV fluids EEG pending, neurology consultation reviewed Continue current management of diabetes Okay to [facility] Admission and Anticipated Discharge Date Admission Date: February 20, 2024 Subjective Patient is feeling much better. Knows that her mentation was altered yesterday and is much improved today. Nursing reports that her mentation is significantly improved Physical Exam Physical Exam: Constitutional: Alert HEENT: Mucous membranes moist. Lungs: Clear to auscultation, decreased, no wheezes rales or rhonchi CV: S1-S2, regular Abdomen: Soft, nontender, nondistended Extremities: No significant edema Spine: Surgical incision lumbar spine clean, dry, intact, no evidence of cellulitis Neuro: No focal deficits, alert and oriented Psych: Cooperative, normal mood Results & Data Results & Data Vital Signs (Past 12 Hours) Vital Signs Temp Pulse Pulse Resp BP BP BP 02/21/24 12:01 37.3 C 77 18 184/83 H 02/21/24 07:48 37.0 C 91 H 18 162/67 H 02/21/24 07:30 02/21/24 07:10 83 02/21/24 02:55 93 H 163/96 H 02/21/24 02:32 88 182/101 H 02/21/24 02:20 36.3 C L 88 18 182/101 H Pulse Ox O2 Del Method 02/21/24 12:01 95 Room Air 02/21/24 07:48 92 Room Air 02/21/24 07:30 Room Air 02/21/24 07:10 02/21/24 02:55 02/21/24 02:32 02/21/24 02:20 91 Room Air Diagnostic Findings Reviewed imaging, laboratory and diagnostic studies. Pertinent findings as below. Creatinine 1.66, improved
[2024-02-21] MEDS: oxyCODONE HCL IR 5 MG TAB (IMMEDIATE RELEASE) PO PRN (12:10)
[2024-02-21] MEDS: SODIUM CHLORIDE 0.9% 500 ML IV SCH (14:51)
[2024-02-21 20:09] VITALS: O2SAT 96
--- NOTE | 2024-02-22 06:39 | Electroencephalogram ---
EEG Procedure Note Date of Service February 21, 2024 Start / End Times Start Time: 11:22 End Time: 11:[address] Rae Choi History A 73 year old female with altered mental status. EEG performed for evaluation of epileptiform activity. Home Medication List Medication Instructions Recorded Confirmed Type albuterol sulfate 90 mcg/actuation 2 puffs inhalation Q4H PRN 01/02/19 02/20/24 Rx aerosol inhaler shortness of breath or wheezing #18 grams lidocaine 5 % topical ointment See Rx Instructions topical TID 04/23/19 02/20/24 History PRN Pain blood sugar diagnostic (OneTouch #100 ea 04/24/19 02/20/24 Rx Ultra Blue Test Strip) blood-glucose meter (OneTouch #1 ea 04/24/19 02/20/24 Rx Ultra2 Meter kit) lancets 33 gauge (OneTouch Delica #100 ea 04/24/19 02/20/24 Rx Lancets) losartan 100 1 tab PO QPM 05/28/19 02/20/24 History mg-hydrochlorothiazide 25 mg tablet metoprolol succinate 50 mg 50 mg PO QAM 05/28/19 02/20/24 History tablet,extended release 24 hr (Toprol XL) trazodone 50 mg tablet 50 - 100 mg (1 - 2 x 50 mg) PO HS 05/29/19 02/20/24 Rx PRN sleep #60 tabs atorvastatin 40 mg tablet 40 mg PO HS 01/30/24 02/20/24 History folic acid 5 mg capsule 5 mg PO QAM 01/30/24 02/20/24 History gabapentin 600 mg tablet 400 mg PO TID PRN Pain 01/30/24 02/20/24 History levothyroxine 25 mcg tablet 25 mcg PO QAM 01/30/24 02/20/24 History (Levoxyl) mometasone 50 mcg/actuation nasal 2 sprays intranasal DAILY PRN 01/30/24 02/20/24 History spray allergies omeprazole 40 mg capsule,delayed 40 mg PO QAM 01/30/24 02/20/24 History release tizanidine 4 mg tablet 4 mg PO TID PRN muscle spasms 01/30/24 02/20/24 History venlafaxine 150 mg 150 mg PO QAM 01/30/24 02/20/24 History capsule,extended release 24 hr (Effexor XR) oxycodone 5 mg tablet 5 mg PO Q6H PRN pain #30 tabs 02/14/24 02/20/24 Rx tramadol 50 mg tablet 50 mg PO Q6H PRN pain, moderate 02/14/24 02/20/24 Rx #30 tabs meclizine 25 mg tablet 25 mg PO TID PRN Dizziness 02/20/24 02/20/24 History Inpatient Medication List Acetaminophen (Acetaminophen 500 Mg Tab) 1,000 mg PO Q8H [facility] Stop: 03/21/24 14:59 Last Admin: 02/22/24 06:08 Dose: 1,000 mg Documented By: TKDagmar Admin: 02/21/24 22:03 Dose: 1,000 mg Documented By: Admin: 02/21/24 14:50 Dose: 1,000 mg Documented By: Admin: 02/21/24 06:07 Dose: 1,000 mg Documented By: RUTH ANN Admin: 02/20/24 22:26 Dose: Not Given Documented By: RUTH ANN Admin: 02/20/24 15:18 Dose: 1,000 mg Documented By: TIMMY Atorvastatin Calcium (Atorvastatin 40 Mg Tab) 40 mg PO HS [facility] Stop: 03/21/24 20:59 Last Admin: 02/21/24 20:10 Dose: 40 mg Documented By: Admin: 02/20/24 22:24 Dose: Not Given Documented By: RUTH ANN Folic Acid (Folic Acid 1 Mg Tab) 5 mg PO QAM [facility] Stop: 03/22/24 08:59 Last Admin: 02/21/24 08:47 Dose: 5 mg Documented By: ELFEGO Gabapentin (Gabapentin 100 Mg Cap) 100 mg PO TID [facility] Stop: 03/22/24 09:44 Last Admin: 02/21/24 20:11 Dose: 100 mg Documented By: Admin: 02/21/24 13:06 Dose: 100 mg Documented By: Admin: 02/21/24 10:48 Dose: 100 mg Documented By: ELFEGO Insulin Aspart (Insulin Aspart Per Unit Charge) 0 units SC ACHS [facility] Stop: 03/21/24 16:29 Last Admin: 02/21/24 20:36 Dose: Not Given Documented By: FROY Co-signed By: RHIANNON Admin: 02/21/24 17:49 Dose: 3 units Documented By: ELFEGO Co-signed By: JESSICA Admin: 02/21/24 13:06 Dose: 3 units Documented By: ELFEGO Co-signed By: JESSICA Admin: 02/21/24 08:46 Dose: Not Given Documented By: Admin: 02/20/24 22:25 Dose: Not Given Documented By: RUTH ANN Admin: 02/20/24 18:04 Dose: Not Given Documented By: ELFEGO Levothyroxine Sodium (Levothyroxine Sodium 25 Mcg Tablet) 25 mcg PO DAILYBB [facility] Stop: 03/22/24 06:29 Last Admin: 02/22/24 06:08 Dose: 25 mcg Documented By: Admin: 02/21/24 06:07 Dose: 25 mcg Documented By: RUTH ANN Metoprolol Succinate (Metoprolol Succ 25mg Ext Rel Tab) [facility] [place] [place] Stop: 03/22/24 08:59 Last Admin: 02/21/24 08:46 Dose: 75 mg Documented By: ELFEGO Oxycodone HCl (Oxycodone Hcl Ir 5 Mg Tab (Immediate Release)) 2.5 mg PO Q4H PRN PRN Reason: Pain Stop: 03/06/24 09:39 Last Admin: 02/21/24 12:10 Dose: 2.5 mg Documented By: ELFEGO Pantoprazole Sodium (Pantoprazole 40 Mg Tab) 40 mg PO BID [facility] Stop: 03/21/24 20:59 Last Admin: 02/21/24 20:10 Dose: 40 mg Documented By: Admin: 02/21/24 08:47 Dose: 40 mg Documented By: Admin: 02/20/24 22:25 Dose: Not Given Documented By: RUTH ANN Venlafaxine HCl (Venlafaxine Hcl Xr 150 Mg Capxr) [facility] [place] Stop: 03/22/24 08:59 Last Admin: 02/21/24 08:46 Dose: 150 mg Documented By: ELFEGO Discontinued Medications Haloperidol Lactate (Haloperidol Lactate 5 Mg/Ml 1 Ml Vial) 2.5 mg IM NOW STA Stop: 02/20/24 22:14 Last Admin: 02/20/24 22:24 Dose: 2.5 mg Documented By: RUTH ANN Haloperidol Lactate (Haloperidol Lactate 5 Mg/Ml 1 Ml Vial) Confirm Administered Dose 5 mg .ROUTE .STK-MED ONE Stop: 08/06/24 22:19 Last Admin: 02/20/24 22:25 Dose: Not Given Documented By: MAC Sodium Chloride (Nss) 500 mls @ 999 mls/hr IV .Q31M STA Stop: 02/20/24 09:06 Last Infusion: 02/20/24 09:36 Dose: Infused Documented By: Admin: 02/20/24 09:10 Dose: 999 mls/hr Documented By: SRL Sodium Chloride (Nss) 1,000 mls @ 999 mls/hr IV .Q1H1M ONE Stop: 02/20/24 10:24 Last Infusion: 02/20/24 11:13 Dose: Infused Documented By: Admin: 02/20/24 09:37 Dose: 999 mls/hr Documented By: SRL Sodium Chloride (Nss) 1,000 mls @ 125 mls/hr IV .Q8H [facility] Stop: 02/20/24 19:29 Last Infusion: 02/20/24 22:29 Dose: Infused Documented By: Admin: 02/20/24 11:55 Dose: 125 mls/hr Documented By: [facility] Acetaminophen (Ofirmev) 1,000 mg in 100 mls @ 400 mls/hr IV NOW STA Stop: 02/21/24 03:12 Last Infusion: 02/21/24 03:23 Dose: Infused Documented By: Admin: 02/21/24 03:08 Dose: 400 mls/hr Documented By: RUTH ANN Sodium Chloride (Nss) 500 mls @ 500 mls/hr IV .Q1H [facility] Stop: 02/21/24 15:15 Last Infusion: 02/21/24 15:51 Dose: Infused Documented By: Admin: 02/21/24 14:51 Dose: 500 mls/hr Documented By: TMP Labetalol HCl (Labetalol Hcl Iv 5 Mg/Ml 20ml) 5 mg IV NOW STA Stop: 02/21/24 02:25 Last Admin: 02/21/24 02:32 Dose: 5 mg Documented By: RUTH ANN Labetalol HCl (Labetalol Hcl Iv 5 Mg/Ml 20ml) Confirm Administered Dose 5 mg IV .STK-MED ONE Stop: 02/21/24 02:31 Last Admin: 02/21/24 03:07 Dose: Not Given Documented By: RUTH ANN Description This is a 21 electrode EEG with a single channel dedicated to limited EKG. The electrodes were placed in accordance with the International 10-20 system. REPORT: At the onset of the EEG the patient is awake. The background is symmetric and continuous. The posterior dominant rhythm is not well seen. Instead the background consist of an admixture of theta/delta activity with superimposed myogenic or faster frequencies that are likely artifactual. No stage II sleep transients are seen. Photic does not induce any abnormalities. Interpretation IMPRESSION: This is an abnormal awake and drowsy routine EEG due to generalized background slowing suggestive of a non specific encephalopathy. No electrographic seizures or epileptiform activity is seen.
[2024-02-22 07:45] VITALS: RESP 18; TEMP 98.1
[2024-02-22 07:56] LABS: BUN Creatinine Ratio 15.5 (10-20); Calcium 8.7 mg/dl (8.6-10.3); Creatinine Clr Calc Pharmacy 50.8 ml/min; Est GFR (African American) 63.3 ml/min; Est GFR (Non-African American) 54.6 ml/min; Potassium 3.8 mmol/L (3.5-5.1)
--- NOTE | 2024-02-22 11:13 | Discharge Summary ---
Date of Service February 22, 2024 Admission HPI Per Admitting Provider This is a 73 yo F with PMhx of DM II, history of provoked PE in Jul 2023 no longer on anticoagulation, HTN, BHAVIN, COPD and other medical problems listed below who is POD#6 s/p removal of posterior instrumentation L4-S1, exploration of fusion L4-S1, revision decompression with bilateral medial facetectomies and foraminotomies L2-L3 L3-L4 and posterior spinal fusion L2-L4 by Dr. Sapp on 02/13/24. She did well postoperatively and was discharged home 3 days ago. Pt returns to the hospital today after and unwitnessed fall at home this morning around 6am. Pt lives at home with her son, who is not present at bedside, but is here with her daughter and son-in-law. They report that she is significantly confused this morning, she has difficulty even responding to some questions, appears to be dazed, staring off, slow to respond, has some diffuse muscular twitching at times throughout her whole body. Family denies any history of seizure. Patient herself cannot recall that she was even in the hospital at one moment last week, and then asked if she has been here for an entire week in the hospital. She follows commands however needs reorientation and is asked anywhere between 1-4 times to have her respond appropriately. The only thing the pt can express is that she " was taking the dog out", but cannot provide any other pertinent information to her fall and can neither confirm nor deny injury to her head. I discussed having possible MRI of her brain as well as a neurology consult which they are okay with. Family mentions that in order for her to have an MRI she is significantly claustrophobic and has previously required sedation, only was able to be performed at [facility] in the past. After dc last Monday, whe did go home with narcotic medication including tramadol and oxycodone. Patient was given 1 dose of IV fentanyl and EMS en route to the hospital this morning. She is slightly confused, not oriented to time but is to self and place. Negative imaging includes CT of the head and lumbar spine. She does not have any acute lab abnormalities except some mild dehydration and AL with Cr. of 1.7 today compared to a baseline of 0.8. Admission Exam Per Admitting Provider See H&P Principal Diagnosis Toxic metabolic encephalopathy due to medications Discharge Exam Constitutional: Alert HEENT: Mucous membranes moist. Lungs: Clear to auscultation, decreased, no wheezes rales or rhonchi CV: S1-S2, regular Abdomen: Soft, nontender, nondistended Extremities: No significant edema Neuro: No focal deficits Psych: Cooperative, normal mood Discharge Data Allergies Allergy/AdvReac Type Severity Reaction Status Date / Time tramadol AdvReac Severe Confusion Verified 02/22/24 11:00 alprazolam AdvReac Mild Hallucinati Verified 02/13/24 06:47 ons baclofen AdvReac Mild Nausea Verified 02/13/24 06:47 ibuprofen AdvReac Mild Nausea Verified 02/13/24 06:47 lorazepam [From Ativan] AdvReac Mild Nausea Verified 02/13/24 06:47 Consultations 02/20/24 10:56 ED Decision to Admit Stat 02/20/24 12:09 Consult Neurology Routine Ordered Studies Reviewed imaging, laboratory and diagnostic studies. Pertinent findings as below. EEG showed evidence of encephalopathy consistent with her medications Creatinine 1.03, improved 02/20/24 08:36 CT head/brain wo con Stat CT lumbar spine wo con Stat 02/20/24 16:00 CT head/brain wo con Routine Hospital Course (1) Toxic metabolic encephalopathy: (2) AL (acute kidney injury): (3) Fall: (4) S/P spinal surgery: (5) HTN (hypertension): (6) Neurogenic claudication due to lumbar spinal stenosis: (7) COPD (chronic obstructive pulmonary disease): (8) DM (diabetes mellitus), type 2: Plan Patient presented to the hospital with above complaints. She was admitted to the hospital due to this acute encephalopathy. Initial workup was most consistent with encephalopathy due to the multiple medications that she was on for pain management status post spinal surgery. These medications were held. By the following morning her mental status had significantly improved. However she was still having pain due to her recent spinal surgery. She was scheduled Tylenol. A much lower dose of gabapentin and only as needed oxycodone. Patient reported that she was aware that she had had a bad adverse reaction to tramadol in the past this is most likely the major culprit for her encephalopathy in addition to muscle relaxers and a fairly high dose of Neurontin. Her mental status continued to improve. Neurology evaluation was performed and obtained and agreed with most likely medication induced encephalopathy. EEG did not show any evidence of seizures. Head imaging showed no acute abnormalities. On the morning of discharge she was back to her baseline. She is up and ambulating and showering in her room on her own. She can be discharged home with a significant decrease in her medications. She understands that she will have some pain but it would be tolerable with her current pain matter occasions. Understands that the numerous other medications she was on will be held and discontinued. She will follow-up with her primary care and spinal surgeon as previously arranged. Home Health Attestation I certify that this patient is under my care and that I, or a physicians registered dental assistant rda working with me, had a face to-face encounter that meets the home health [id number] encounter requirements with this patient. The encounter with the patient was in whole, or in part, for the following medical condition, which is the primary reason for home health care (list medical condition): I certify that, based on my findings, the following services are medically necessary home health services: My clinical findings support the need for the above services because: Further, I certify that my clinical findings support that this patient is homebound (i.e. absences from home require considerable and taxing effort and are for medical reasons or mu-ism services or infrequently or of short duration when for other reasons) because: Certification for Home Health Services: Based on the above findings, I certify that this patient is confined to the home and needs intermittent senior living care, physical therapy and/or speech therapy or continues to need occupational therapy. The patient is under my care, and I have initiated the establishment of the plan of care. This patient will be followed by a physician who will periodically review the plan of care. Total Time Total Time Spent Total Time Spent (In Minutes): 36 Discharge Plan Discharge Items Patient Disposition: Home - Home Health Services Reason For Visit: FALL Discharge Diagnosis: Toxicmetabolic encephalopathy Activity: As commented below Activity Comment: Increase activity as tolerated Lifting Comment: Lifting restrictions as previously instructed by your surgeon Non-emergency contact: Primary Care Provider and Surgeon Call non-emergency contact if: you have any medication questions, your symptoms worsen and your pain is concerning for you Follow-up/Referrals: Reina Cross CRNP [Primary Care Provider] - Diet: Carb Consistent or DM2 and Low Sodium (2gm) Addtl Attending Provider Instructions: Continue your instructions from your spine surgeon as prior to admission Pending Studies at Discharge: No Stand-Alone Forms: My [facility] BOLD Guidance, Smoking Cessation Medications and DC Order Prescriptions: New acetaminophen [Tylenol Extra Strength] 500 mg Tablet 1,000 mg PO TID Qty: 90 0RF metoprolol succinate 25 mg Tablet Extended Release 24 Hr 75 mg PO QAM 30 Days Qty: 90 0RF gabapentin 100 mg Capsule 100 mg PO TID 30 Days Qty: 90 0RF Continued albuterol sulfate 90 mcg/actuation HFA aerosol inhaler 2 puffs inhalation Q4H PRN (Reason: shortness of breath or wheezing) Qty: 18 3RF lidocaine 5 % ointment See Patient Comments topical TID PRN (Reason: Pain) Patient Comments: use 3 to 4 times daily Rx Instructions: as above (DME) OneTouch Ultra Blue Test Strip strip See Dose Instructions .ROUTE .MEDSUPPLY Qty: 100 2RF Dose Instruction: As directed Rx Instructions: As directed Dx E11.9 Test once daily. (DME) blood-glucose meter [MYTRNDuch Ultra2 Meter] kit See Dose Instructions .ROUTE .MEDSUPPLY Qty: 1 0RF Dose Instruction: As directed Rx Instructions: As directed (DME) lancets [OneTouch Delica Lancets] 33 gauge misc See Dose Instructions .ROUTE .MEDSUPPLY Qty: 100 0RF Dose Instruction: As directed Rx Instructions: As directed folic acid 5 mg Capsule 5 mg PO QAM levothyroxine [Levoxyl] 25 mcg Tablet 25 mcg PO QAM atorvastatin 40 mg tablet 40 mg PO HS Rx Instructions: TAKE ONE TABLET BY MOUTH AT BEDTIME venlafaxine [Effexor XR] 150 mg capsule,extended release 24hr 150 mg PO QAM omeprazole 40 mg capsule,delayed release(DR/EC) 40 mg PO QAM Rx Instructions: TAKE ONE CAPSULE BY MOUTH TWICE A DAY mometasone 50 mcg/actuation spray,non-aerosol 2 sprays intranasal DAILY PRN (Reason: allergies) oxycodone 5 mg tablet 5 mg PO Q6H PRN (Reason: pain) Qty: 30 0RF meclizine 25 mg tablet 25 mg PO TID PRN (Reason: Dizziness) Discontinued metoprolol succinate [Toprol XL] 50 mg tablet extended release 24 hr 50 mg PO QAM losartan-hydrochlorothiazide 100-25 mg tablet 1 tab PO QPM trazodone 50 mg tablet 50 - 100 mg PO HS PRN (Reason: sleep) Qty: 60 5RF gabapentin 600 mg tablet 400 mg PO TID PRN (Reason: Pain) tizanidine 4 mg tablet 4 mg PO TID PRN (Reason: muscle spasms) Rx Instructions: TAKE ONE TABLET BY MOUTH THREE TIMES A DAY NEEDED FOR MUSCLE SPASTICITY. tramadol 50 mg tablet 50 mg PO Q6H PRN (Reason: pain, moderate) Qty: 30 0RF Discharge Orders: Discharge Order (Routine); Ordered 02/22/24 Ordered By: Christiano Dykes Admission Data Admit Date/Time: 02/20/24 11:39 Attending Provider: Christiano Dykes Admit Provider: Rae Choi Primary Care Provider: Reina Cross Other Providers: Rae Choi; Marcin Razo
[2024-02-22 14:30] VITALS: BP 190/93; PULSE 63
== END 2024-02-22 14:30 | disposition home or self-care (01) | DRG 92 ==
LOC: ED 08:12 → SUATTDRO 11:39 → EDINP 11:39 → 2N 14:51 → 3E 02-21 18:26